=== PATIENT | male | born 1940 | race Caucasian/White ===

== ENCOUNTER 2020-08-19 16:33 | Inpatient (IN) | payer MEDICARE, SELFPAY ==
[2020-08-19] VITALS (21 sets, daily range): BP systolic 112–172; BP diastolic 57–110; PULSE 59–90; RESP 15–30; TEMP 36.6–36.7; O2SAT 95–99; BMI 32.5
--- NOTE | ~2020-08-19 | XR_ITS ---
EXAMINATION: XR chest 2V DATE: 08/19/2020 17:50 INDICATION: Sternal chest pain TECHNIQUE: PA and lateral views of the chest are obtained. COMPARISON: 12/10/2014 FINDINGS: The lungs are free of acute opacities. There is no pleural effusion or pneumothorax. The ca rdiomediastinal silhouette is normal. There is severe thoracic spondylosis. IMPRESSION: 1. No acute cardiopulmonary abnormality. Reviewed, dictated and finalized at location A.
--- NOTE | ~2020-08-19 | CT_ITS ---
EXAMINATION: CT brain wo con INDICATION: Head injury COMPARISON: None TECHNIQUE: Standard unenhanced head CT. The dose-length product (DLP) was 681.00 mGy-cm. The mA was a djusted according to patient size. Iterative reconstruction technique was employed. FINDINGS: There is no acute intraparenchymal hemorrhage. No evidence of mass lesion. No evidence of a cute infarction. There is an old lacunar infarct of the left internal capsule. There is mild perivent ricular and subcortical hypodensity probably related to small vessel ischemic disease. There is mild prominence of the sulci and ventricles related to cerebral atrophy. Intracranial calcified cerebral a therosclerosis is noted. There are no extra-axial collections. There is no mass effect or midline silver ft. The orbits and soft tissues are unremarkable. The visualized sinuses and mastoid air cells are w ell aerated. IMPRESSION: 1. No acute intracranial abnormality. 2. Age related findings. Reviewed, dictated and finalized at location A.
--- NOTE | ~2020-08-19 | CT_ITS ---
EXAMINATION: CT cervical spine wo con DATE: 08/20/2020 19:19 INDICATION: Head injury TECHNIQUE: Computed tomography (CT) of the cervical spine was performed without intravenous contrast. The dose-length product (DLP) was 530.74 mGy-cm. Automated exposure control and iterative reconstruc tion technique were employed. COMPARISON: None FINDINGS: There are 2 mm of retrolisthesis of C3 on C4 and 1 mm retrolisthesis of C4 on C5. The verte bral body heights are maintained. The odontoid is intact. There is severe loss of intervertebral disc space height at C3-4, C4-5, and C6-7. Small degenerative osteophytes project from the anterior endpl ates of multiple vertebral bodies. Prevertebral soft tissues are normal. There is moderate multilevel facet and uncovertebral joint osteoarthritis. There are partially calcified left thyroid nodules. IMPRESSION: 1. Severe cervical spondylosis without acute findings. 2. Partially calcified left thyroid nodules. Most recent thyroid ultrasound is from 2007. Consider no nemergent thyroid ultrasound. Reviewed, dictated and finalized at location A. IMPRESSION: 1. Severe cervical spondylosis without acute findings. 2. Partially calcified left thyroid nodules. Most recent thyroid ultrasound is from 2007. Consider nonemergent thyroid ultrasound.
--- NOTE | 2020-08-19 16:37 | ECG_ITS ---
Measurements Intervals [place] Rate: 83 P: 58 AL: 220 QRS: 65 QRSD: 97 T: 31 QT: 365 QTc: 431 Interpretive Statements SINUS RHYTHM WITH FIRST DEGREE AV BLOCK MINIMAL Q WAVES- INFERIOR LEADS BORDERLINE T WAVE ABNORMALITY- INFERIOR LEADS BASELINE ARTIFACT- I, II, III, AVF ABNORMAL ECG Electronically Signed On 08-19-2020 20:03:50 CDT by Timoteo Aviles D.O.
[2020-08-19] MEDS: ASPIRIN 81 MG CHEWABLE TABLET 324 MG PO (17:08)
[2020-08-19 17:48] LABS: Basophils Absolute Auto 0.1 K/mm3 (0.0-0.1); Basophils Percent Auto 0.8 % (0.2-1.2); Eosinophils Absolute Auto 0.2 K/mm3 (0-0.3); Eosinophils Percent Auto 2.5 % (0-4.4); Hematocrit 41.6 % (42.0-52.0); Immature Granulocyte Absolute 0.03 K/mm3 (0.00-0.031); Immature Granulocyte Percent A 0.4 % (0-0.5); Lymphocytes Absolute Auto 2.52 K/mm3 (0.9-3.2); Lymphocytes Percent Auto 30.4 % (18.3-44.2); Mean Corpuscular HGB Conc 33.7 g/dl (32-36); Mean Corpuscular Hemoglobin 31.7 pg (26-34); Mean Corpuscular Volume 94.3 fl (80-100); Mean Platelet Volume 11.9 fl (7.4-10.4); Monocytes Absolute Auto 0.8 K/mm3 (0.1-0.6); Neutrophils Absolute Auto 4.7 K/mm3 (1.3-6.7); Neutrophils Percent Auto 56.9 % (45.5-73.1); Platelet Count Result 204 k/mm3 (150-375); Red Blood Count 4.41 M/mm3 (4.6-6.20); Red Cell Distribution Width 12.9 % (11.5-14.5); White Blood Count 8.3 K/mm3 (4.5-10.0)
--- NOTE | 2020-08-19 17:49 | ECG_ITS ---
Measurements Intervals [place] Rate: 80 P: -12 DC: 187 QRS: 57 QRSD: 101 T: 28 QT: 387 QTc: 448 Interpretive Statements SINUS RHYTHM DELAYED PRECORDIAL R/S TRANSITION MINIMAL Q WAVES- INFERIOR LEADS BORDERLINE T WAVE ABNORMALITY- INFERIOR LEADS BASELINE WANDER- AVR, AVL, AVF BORDERLINE ECG Electronically Signed On 08-19-2020 20:07:56 CDT by Timoteo Aviles D.O.
[2020-08-19 17:59] LABS: Anion Gap 6 mmol/L (8-16); Blood Urea Nitrogen 18 mg/dL (9-20); Calcium 9.4 mg/dL (8.4-10.2); Carbon Dioxide 28 mmol/L (22-30); Chloride 104 mmol/L (98-107); Estimated CRCL calculation 68 ml/min; Estimated Glomerular Filt Rate > 60; Glucose 187 mg/dL (75-110); Sodium 138 mmol/L (137-145)
[2020-08-19] MEDS: NITROGLYCERIN SL 0.4 MG TABLET SUBLINGUAL (18:06)
[2020-08-19 18:09] LABS: Partial Thromboplastin Time 26.5 SECONDS (22.3-36.8); Prothrombin Time 13.8 Seconds (11.1-14.7)
[2020-08-19 18:11] LABS: Troponin I < 0.012 ng/mL (0.000-0.034)
[2020-08-19] MEDS: NITROGLYCERIN OINTMENT 1 INCH DOSE TRANSDERM (19:51)
--- NOTE | 2020-08-19 20:02 | PC.NURSE ---
Pt remains pain free. No new s/s. Pt is hoping to go home.
[2020-08-19] MEDS: ENOXAPARIN 120 MG/0.8 ML SYRINGE SUB-Q (20:20)
[2020-08-19 20:39] LABS: Troponin I 0.928 ng/mL (0.000-0.034)
--- NOTE | 2020-08-19 21:04 | ED.CHESTPAIN ---
HPI - Chest Pain General Chief Complaint: Chest Pain Stated Complaint: chest pain Time Seen by Provider: 08/19/20 17:21 Source: patient Mode of arrival: ambulatory Limitations: no limitations History of Present Illness HPI narrative: 80-year-old male History of insulin-dependent diabetes Also has 2 cardiac stents placed here a number of years ago however he is on no stent protective type of medications, only insulin Here today for chest pain Patient says he was outside gardening with his he was fine while he was doing that he came in because he was finished not even because he was tired and after laying down on the sofa started having a severe anterior chest pressure/tightness which has been present for about 90 minutes at the time I saw him in the ER Subsequently it was completely relieved by nitroglycerin given here He denied other symptoms such as shortness of breath nausea diaphoresis Related Data Allergies Allergy/AdvReac Type Severity Reaction Status Date / Time No Known Allergies Allergy Unverified 08/19/20 17:05 Review of Systems Review of Systems: All systems reviewed & are unremarkable except as noted in HPI and below Constitutional: Constitutional: Reports no additional constitutional complaints, Denies chills, Denies fever(s) and Denies headache(s) Eyes: Eyes: Reports no additional eye complaints and Denies change in vision ENT: Denies headache(s) and Denies sore throat Cardiovascular: Cardiovascular: Reports chest pain, Denies radiating jaw, neck or arm pain and Denies dyspnea Respiratory: Respiratory: Denies cough and Denies dyspnea Gastrointestinal: Gastrointestinal: Denies abdominal pain, Denies diarrhea and Denies vomiting Genitourinary: Genitourinary: Denies dysuria and Denies urinary frequency Musculoskeletal: Musculoskeletal: Denies deformity, Denies arthralgias, Denies joint swelling and Denies numbness Integumentary/Breasts: Skin/Breast: Denies rash and Denies wounds Neurologic: Denies headache(s), Denies focal weakness and Denies numbness Psychiatric: Psychiatric: Reports no additional psychiatric complaints Endocrine: Endocrine: Reports no additional endocrine complaints Hematologic/Lymphatic: Hematologic/Lymphatic: Reports no additional hematologic/lymphatic complaints Allergic/Immunologic: Allergic/Immunologic: Reports no additional allergic/immunologic complaints [facility] Family History Family History (Updated 05/27/18 @ 08:21 by DOCTOR UNKNOWN) Mother Family history of diabetes mellitus in first degree relative Diabetes mellitus Father Patient's father is Family history of malignant neoplasm Social History Social History Smoking status: Never smoker Alcohol intake: never Exam Const: General: cooperative, alert and ill appearing; No diaphoretic Orientation/consciousness: patient oriented x3 (alert) Other: Appears uneasy and mildly distressed HENMT: Head: normal to inspection, normocephalic and atraumatic Ears: external ears normal General nose exam: no epistaxis Eyes: Conjunctivae: conjunctivae normal EOM: EOMs intact bilaterally Neck: Neck: normal visual inspection, supple and no JVD Resp: Effort & Inspection: normal respiratory effort and not labored Auscultation: clear to auscultation bilaterally and other (BS =) Cardio: Rate: regular rate Rhythm: regular rhythm Heart sounds: no murmurs GI: Inspection: non-distended GI Palp: Yes Soft to palpation, No Tenderness to palpation present (GI) and No Guarding due to palpation present (GI) Skin: General skin exam: normal color and no rashes or lesions noted Neuro: General: patient oriented x3 (alert) and moves all extremities Speech: normal speech Extrem: General: normal to inspection and no pedal edema Psych: Affect: normal affect Course Course Emergency Course: Initial EKG had a little ST elevation only in lead III so it was repeated after I saw him and was u
[2020-08-19] MEDS: METOPROLOL TARTRATE INJ 5 MG/5 ML VIAL IV PUSH (21:10)
--- NOTE | 2020-08-19 21:13 | PM.IMHP ---
H&P: HPI History of Present Illness Date/Time: 08/19/20 21:13 Chief Complaint: Chest pain Narrative: 80-year-old male with past medical history of insulin-dependent diabetes mellitus, hypertension and coronary artery disease who presented to the ER via private vehicle due to chest pain. He had been outside mowing the lawn. He went inside and laid down approximately an hour later he developed substernal chest pain that was nonradiating. Pain was having an aching in nature. He waited approximately 30 minutes and when the pain did not resolve he decided to come to the ER after his encouraged him to do so. His pain persisted until he received nitroglycerin in the ER at which time he had complete resolution of his symptoms. He did have some mild nausea accompanying the chest pain but this had resolved before he arrived to the ER. He denies any shortness of breath, diaphoresis, cough, congestion, paroxysmal nocturnal dyspnea or lower extremity swelling. He reports that the pain was moderate in intensity. His chest pain had persisted for approximately 90 minutes by time he received nitro and aspirin. The patient had had a staged cardiac catheterization with 2 stents placed after LA in 2014. He remained on his antihypertensives and Brilinta and statin therapy for approximately 1 year following procedure. He reported that he followed up with Dr. Jackson and was told that he was ?good.? The patient interpreted this to mean that he did not need to take the medications anymore and that he did not need to follow-up with cardiology. He reports that his glucoses are well controlled in usually range between 130 and 180. The patient is a fair historian at best. Seems to have some memory deficits. Review of Systems Review of Systems: Narrative: 12 systems were reviewed with pertinent positives and negatives per HPI. Except as documented in the HPI, all other systems were reviewed and are negative. 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 Jcakson History of tonsillectomy Family History Family History (Updated 08/20/20 @ 03:51 by Roberta Amado DO) Mother Diabetes mellitus Father , during World War 2 when the patient was a infant War inj:expl bomb-cease Social History Social History (Updated 08/20/20 @ 03:53 by Roberta Amado DO) Social History: He lives in [place] with his of 60 years. Their daughter and son are healthy. He rarely drinks alcohol and only in small amounts. He is a lifelong nonsmoker. Primary care physician: Dr. Rodney Vila Code status: Full code Surrogate decision maker: Smoking status: Never smoker Alcohol intake: never Substance use: never Gender identity (if verbalized by the patient): Male Spiritual care concerns: No Meds Home Medications and Allergies Home Medications Medication Instructions Recorded Confirmed Type insulin degludec [Tresiba 40 unit SUBCUT HS 08/19/20 08/19/20 History FlexTouch U-200] insulin lispro See Protocol SUBCUT TID 08/19/20 08/19/20 History tamsulosin 0.4 mg PO HS 08/19/20 08/19/20 Hist
[2020-08-19] MEDS: SIMVASTATIN 20 MG TABLET 40 MG PO (21:15)
[2020-08-19 23:37] LABS: Glucose Point of Care 225 mg/dl (65-105)
--- NOTE | 2020-08-19 23:44 | ADMGEN ---
This patient, Nikita Cordova, was admitted to Intensive Care Unit-2 at 2300. Patient/family oriented to hospital policies and general routines including ID bracelet, bed and alarms, visiting hours, pain management, procedures, bathroom and other care routines, personal items, smoking policy, room service/diet, and visiting hours. Information on how to activate the Rapid Response Team has been discussed. Patient/Family are encouraged to report perceived risks to care and to ask questions if they do not understand what they are told or what they should do.
[2020-08-20] VITALS (14 sets, daily range): BP systolic 100–179; BP diastolic 58–97; PULSE 59–96; RESP 15–24; TEMP 36.1–36.8; O2SAT 96–100
[2020-08-20] MEDS: NITROGLYCERIN OINTMENT 1 INCH DOSE TRANSDERM ×2 (01:50→06:23)
[2020-08-20 05:01] LABS: Cholesterol 161 mg/dL (0-200); HDL Direct 34 mg/dL
[2020-08-20 05:04] LABS: LDL Cholesterol Direct 99 mg/dL
[2020-08-20 05:38] LABS: Hemoglobin A1C 8.3 % (<5.7)
--- NOTE | 2020-08-20 06:00 | ECHO_ITS ---
Patient Info Name: Nikita Cordova Age: 80 years : 1940 Gender: Male Ht: 74 in Wt: 253 lbs BSA: 2.48 m2 HR: 78 bpm BP: 154 / 86 mmHg Heart Rhythm: Sinus Rhythm Technical Quality: Poor Exam Date: 08/20/2020 8:47 AM Exam Location: [facility] Pulmonary Exam Room: ICU 2 Patient Status: Inpatient Admit Date: 08/19/2020 Staff Ordering Physician: Efe Agudelo MD Sales And Marketing Director: Yue Anders RDCS Attending Provider: Roberta Amado DO Referring Physician: Magnus SLATER; Exam Type: CA echo dop color flow w con Study Info Indications - NSTEMI Complete two-dimensional, color flow and Doppler transthoracic echocardiogram is performed with contrast to opacify the left ventricle and to improve the deliniation of the left ventricle endocardial borders. Contrast/Agitated Saline Contrast/Ag. Saline: Definity Amount: 2.00 ml Administered By: Giovani Mckinney RN Reason for Poor Study: patient body habitus Summary 1. Left ventricular systolic function is normal, estimated at 60-65%. 2. Posterior segment appears to be hypodynamic. 3. Thickened anterior mitral valve leaflet no significant regurgitation however. Left Ventricle Left ventricular chamber dimension is normal. Left ventricular systolic function is normal, estimated at 60-65%. The left ventricular diastolic function is grade I diastolic dysfunction. Posterior segment appears to be hypodynamic. Right Ventricle Right ventricular chamber dimension is normal. Left Atria Left atrial chamber dimension is normal. Right Atria Right atrial chamber dimension is normal. Aortic Valve The aortic valve is trileaflet. There is mild aortic valve sclerosis. Pulmonic Valve The pulmonic valve is not well visualized. Mitral Valve The mitral valve has thickened leaflets. Tricuspid Valve The tricuspid valve leaflets are normal. Pericardium/Pleural The pericardium appears normal. Aorta The aortic root size at the sinus of Valsalva is normal. Left Ventricular Outflow Tract Name Value Normal LVOT 2D LVOT Diameter 2.14 cm LVOT Doppler LVOT Peak Gradient 3 mmHg LVOT Mean Gradient 2 mmHg LVOT VTI 20.88 cm LVOT VTI/AV VTI Ratio 0.87 LVOT Stroke Volume 74.91 ml LVOT CO 14.06 l/min LVOT CI 5.67 L/min/m2 Pulmonic Valve Name Value Normal PV Doppler PV Peak Gradient 2 mmHg Mitral Valve Name Value Normal MV Doppler
[2020-08-20 06:08] LABS: Triglycerides 174 mg/dL (<150)
--- NOTE | 2020-08-20 08:19 | PM.CNCAR ---
Assessment and Plan Additional Plan This is a 80-year-old man with: Coronary artery disease with previous history of a MA and stenting to his LAD and circumflex about 5 years ago. The patient has not been seen in follow-up in a number of years. He presents no medical therapy at all of having had a non ST elevation MA yesterday following doing some yd work. He is clinically stable his vital signs are fine and his electrocardiogram looks normal. In this setting we will continue him on aspirin, anticoagulation, beta-claudia, nitrates and statins and plan for follow-up coronary angiography on Saturday. Rodney Jackson MD [facility] History of Present Illness History of Present Illness Consult date/time: 08/20/20 08:19 Consult reason: chest pain Reason For Visit: nstemi Narrative: This is a 80-year-old man with a history of coronary artery disease, previous myocardial infarction with PCI who presented to the hospital yesterday with chest pain has evidence of non ST elevation MA and in this setting I am seeing him in consultation. The patient apparently is known to have coronary artery disease presented late with a acute MA of the anterior wall about 6 years ago. He underwent emergency PCI of the LAD and did well. He apparently also had high-grade stenosis in his circumflex was treated about a month later in a staged fashion. He was followed in the office for a short period of time maybe about a year or so did well and then failed follow-up after that. Surprisingly he also she discontinued all of his medications indicating he had the concept that medication 1st heart disease was no longer necessary. He is seeing a PCP in [place] for treatment of his diabetes and is taking insulin but interestingly that position is also prescribing no medication for coronary artery disease maintenance. In any event despite all this he was doing well until yesterday when he was doing some yd work and triggered some retrosternal chest pain. He describes it as a dull heavy central substernal pain that persisted for a period of time after relaxing in his home so he came to the emergency room for evaluation. Apparently he was given 1 nitroglycerin tablet which rapidly alleviated this symptom. He has not had any more of it since then. His troponin level which was normal upon arrival has risen to just over 11. There are 2 EKGs in the chart that are normal. In this setting I am seeing him in consultation. Review of Systems Constitutional: Constitutional: Reports no additional constitutional complaints Eyes: Eyes: Reports no additional eye complaints ENT: Reports system reviewed and no additional complaints, except as documented Cardiovascular: Cardiovascular: Reports no additional cardiovascular complaints Respiratory: Respiratory: Reports no additional respiratory complaints Gastrointestinal: Gastrointestinal: Reports no additional gastrointestinal complaints Genitourinary: Genitourinary: Reports no additional male genitourinary complaints Musculoskeletal: Musculoskeletal: Reports no additional musculoskeletal complaints Integumentary/Breasts: Skin/Breast: Reports system reviewed and no additional complaints, except as docu Neurologic: Reports system reviewed and no additional complaints, except as documented Endocrine: Endocrine: Reports no additional endocrine complaints Hematologic/Lymphatic: Hematologic/Lymphatic: Reports no additional hematologic/lymphatic complaints Allergic/Immunologic: Allergic/Immunologic: Reports no additional allergic/immunologic complaints [facility] Past Medical History Medical History (Updated 08/20/20 @ 03:56 by Roberta Amado DO) BPH (benign prostatic hyperplasia) C4 cervical fracture Coronary artery disease Diabetic peripheral neuropathy Diabetic retinopathy Dyslipidemia Essential hypertension Hypertriglyceridemia Insulin dependent diabetes mellitus Kidney stones Primary cancer of skin of shoulder Skin
[2020-08-20] MEDS: lisinopriL 10 MG TABLET PO (08:36)
[2020-08-20] MEDS: carvediloL 6.25 MG TABLET PO ×2 (08:37→20:21)
[2020-08-20] MEDS: FAMOTIDINE 20 MG/2 ML VIAL IV PUSH ×2 (08:37→20:21)
[2020-08-20] MEDS: ASPIRIN 81 MG CHEWABLE TABLET PO (08:37)
[2020-08-20] MEDS: ENOXAPARIN 120 MG/0.8 ML SYRINGE SUB-Q ×2 (08:37→20:21)
[2020-08-20 09:42] LABS: Glucose Point of Care 249 mg/dl (65-105)
[2020-08-20] MEDS: INSULIN ASPART (*BKC) 100 UNITS/ML SUB-Q ×3 (09:49→16:17)
[2020-08-20] MEDS: ROSUVASTATIN 10 MG TABLET PO (10:10)
[2020-08-20 12:02] LABS: Glucose Point of Care 278 mg/dl (65-105)
--- NOTE | 2020-08-20 14:51 | PM.IMPN ---
Progress Note: A&P Assessment and Plan (1) Non-ST elevation NH (NSTEMI): Code(s): I21.4 - Non-ST elevation (NSTEMI) myocardial infarction Status: Acute Assessment and Plan: The patient's chest pain has resolved with nitropaste on admission Pt seen by cardiology Patient has been admitted to IMU. Pt started on cardiac medications for heart cath on saturday. Trop was 11 (2) Type 2 diabetes mellitus with hyperglycemia, with long-term current use of insulin: Code(s): E11.65 - Type 2 diabetes mellitus with hyperglycemia; Z79.4 - half-way (current) use of insulin Status: Acute Assessment and Plan: HBaic is 8. low-dose sliding scale insulin with Accu-Cheks ACHS and hypoglycemia protocol. (3) Essential hypertension: Code(s): I10 - Essential (primary) hypertension Status: Acute Assessment and Plan: Coreg 6.25 mg p.o. b.i.d. and lisinopril 10 mg p.o. daily BP is 100/58 Subjective Date/time seen: 08/20/20 14:51 Interval history: 80-year-old male with past medical history of insulin-dependent diabetes mellitus, hypertension and coronary artery disease who presented to the ER via private vehicle due to chest pain. Pt found to have a nstemi pt to start medical treatment and has his cath on Saturday, seen by cardiology already. Pt is chest pain free, sitting comfortable in the room. Review of Systems Review of Systems: All systems reviewed & are unremarkable except as noted in HPI and below Exam Narrative: Exam Narrative: Pleasant man overweight sitting in chair. HEENT: Left cataract noted Respiratory: Clear lungs BL Cardiovascular: Regular rate, regular rhythm, no murmur, no JVD Gastrointestinal: Obese, soft, nontender, positive bowel sounds Musculoskeletal: No clubbing, cyanosis or edema Neurological: Alert and oriented x3, slow speech Psychiatric: Appropriate mood and affect, pleasant and cooperative Hematologic/lymphatic: No petechiae, lymphadenopathy or bruising Objective Data Vital Signs Vital Signs: Vital Signs - 24 hr 08/19/20 17:01 08/19/20 18:02 08/19/20 19:02 Temperature 36.6 C Pulse Rate 85 90 75 Respiratory Rate 17 21 H 22 H Blood Pressure 172/84 H 163/76 H 148/85 H Pulse Oximetry 99 99 98 08/19/20 20:21 08/19/20 20:31 08/19/20 20:45 Temperature Pulse Rate 68 89 80 Respiratory Rate 18 30 H 22 H Blood Pressure Pulse Oximetry 96 08/19/20 21:00 08/19/20 21:09 08/19/20 21:10 Temperature Pulse Rate 82 83 83 Respiratory Rate 23 H 17 Blood Pressure 141/110 H Pulse Oximetry 96 08/19/20 21:15 08/19/20 21:30 08/19/20 21:31 Temperature Pulse Rate 72 64 65 Respiratory Rate 19 21 H 18 Blood Pressure 112/62 Pulse Oximetry 08/19/20 21:32 08/19/20 21:45 08/19/20 22:00 Temperature Pulse Rate 64 62 61 Respiratory Rate 19 17 20 Blood Pressure Pulse Oximetry 08/19/20 22:01 08/19/20 22:15 08/19/20 22:30 Temperature Pulse Rate 62 59 L 66 Respiratory Rate 18 22 H 20 Blood Pressure 115/57 L Pulse Oximetry 08/19/20 22:31 08/19/20 23:55 08/19/20 23:59 Temperature 36.7 C Pulse Rate 68 74 Respiratory Rate 16 15 Blood Pressure 152/90 H 164/83 H Pulse Oximetry 98 95 08/20/20 00:00 08/20/20 04:00 08/20/20 08:00 Temperature 36.7 C 36.8 C Pulse Rate 75 76 96 Respiratory Rate 15 20 18 Blood Pressure 158/81 H 154/86 H 134/97 H Pulse Oximetry 100 96 98 08/20/20 08:37 08/20/20 10:00 08/20/20 12:00 Temperature Pulse Rate 80 74 68 Respiratory Rate 18 Blood Pressure 100/58 L Pulse Oximetry 100 08/20/20 13:38 Temperature Pulse Rate 71 Respiratory Rate Blood Pressure Pulse Oximetry Intake/Output Intake/Output: Intake & Output 08/17/20 08/18/20 08/19/20 08/20/20 23:59 23:59 23:59 23:59 Intake Total 480 Output Total 500 Balance -20 Meds/Results Medications: Active Medications Generic Name Dose Route Start La
[2020-08-20 16:21] LABS: Glucose Point of Care 203 mg/dl (65-105)
--- NOTE | 2020-08-20 18:51 | PC.NURSE ---
Pt confused and violent at 1840. Took heart monitor off and ran out of room attempting to go into other icu rooms. Pt fell and hit head. Code ken called. Multiple calls placed to dr. Herrera notified and aware of situation. Reached Patrica and informed. She is coming to evaluate at bedside.
--- NOTE | 2020-08-20 19:30 | PM.EVENT ---
Event Note Event Note Event Note: A code purple was called earlier the patient had become aggressive. The patient had gotten up out of bed and fell and hit his head on the floor. Patient had a small laceration approximately 1-1/2 inches long. I sent him for CT of the brain without contrast as well as CT of the cervical spine. The patient is awake and talking to his now. I did place 2 small diann in the right occipital parietal area where the laceration was observed. The patient is awake and talking to his and is aware of who she is. No focal weakness or slurred speech is notice. Neurological status is intact.
--- NOTE | 2020-08-20 19:36 | WPDPROCEDUR ---
Procedures Laceration Laceration 1: Site: scalp Description: linear Depth: simple, single layer Number of sutures: 2 Patient tolerated well. The bleeding has essentially stopped from the scalp laceration.
[2020-08-20] MEDS: TAMSULOSIN HCL 0.4 MG CAPSULE PO (20:21)
[2020-08-20] MEDS: INSULIN GLARGINE (*BKC) 100 UNITS/ML 40 UNITS SUB-Q (20:22)
[2020-08-20 20:34] LABS: Glucose Point of Care 330 mg/dl (65-105)
[2020-08-21] VITALS (16 sets, daily range): BP systolic 94–153; BP diastolic 53–79; PULSE 59–86; RESP 18–24; TEMP 36.4–36.6; O2SAT 97–100
[2020-08-21] MEDS: NITROGLYCERIN OINTMENT 1 INCH DOSE TRANSDERM (05:11)
--- NOTE | 2020-08-21 06:59 | PM.PNCARD ---
Progress Note: A&P Additional Plan 80-year-old man with: Coronary artery disease prior NM/PCI to both the LAD and circumflex. Had not been seen in follow-up in a number of years because of noncompliance. In the interim he has developed dementia which unfortunately complicates his management. Plans are in place to bring him to the [facility] director tomorrow morning for follow-up angiography. My principal concern is controlling the patient's dementia/agitation during his invasive procedure. Rodney Jackson MD [facility] Subjective Date/time seen: Date of service: 08/21/20 06:59 Interval history: 80-year-old man with: Coronary artery disease previous PCI to the LAD and the circumflex in the remote past. He was noncompliant with follow-up and medication and came into the hospital following exertional chest pain and E enzyme evidence of non ST elevation NM. Patient is asymptomatic this morning offers no cardiac complaints. Apparently he became disoriented last evening started charging out of his room slipped in the hallway and fell. He sustained a scalp laceration which was treated by the overnight primary team. The patient's is here this morning indicates he has become somewhat demented in the last year to year and a half he did this type of agitation and memory difficulty is related to that. He has seen a neurologist to evaluate this and the told me that he has developed dementia. Exam Const: General: comfortable and no acute distress HENMT: Mouth: Yes moist mucous membranes Eyes: Sclera: sclerae normal Pupils: Equal, round and reactive pupils present Neck: Neck: supple and no JVD Thyroid: thyroid normal Resp: Effort & Inspection: normal respiratory effort Auscultation: clear to auscultation bilaterally Cardio: Rate: regular rate Rhythm: regular rhythm Other: No murmur no gallop no rub GI: GI Palp: Yes Soft to palpation Auscultation: normal bowel sounds Neuro: Cognition (Neuro): normal cognition Extrem: General: normal to inspection Objective Data Vital Signs Vital Signs: Vital Signs - 24 hr 08/20/20 08:00 08/20/20 08:37 08/20/20 10:00 Temperature 36.8 C Pulse Rate 96 80 74 Respiratory Rate 18 Blood Pressure 134/97 H Pulse Oximetry 98 08/20/20 12:00 08/20/20 13:38 08/20/20 16:00 Temperature Pulse Rate 68 71 59 L Respiratory Rate 18 20 Blood Pressure 100/58 L 111/71 Pulse Oximetry 100 99 08/20/20 17:18 08/20/20 18:53 08/20/20 20:00 Temperature 36.4 C L Pulse Rate 61 95 82 Respiratory Rate 24 H 20 Blood Pressure 179/95 H 161/89 H Pulse Oximetry 100 99 08/20/20 20:21 08/20/20 23:49 08/20/20 23:50 Temperature 36.1 C L Pulse Rate 82 71 76 Respiratory Rate 20 Blood Pressure 161/89 H Pulse Oximetry 98 08/21/20 03:57 08/21/20 04:00 08/21/20 05:24 Temperature 36.6 C Pulse Rate 73 71 71 Respiratory Rate 18 Blood Pressure 153/73 H Pulse Oximetry 100 Intake/Output Intake/Output: Intake & Output 08/18/20 08/19/20 08/20/20 08/21/20 23:59 23:59 23:59 23:59 Intake Total 1200 240 Output Total 1300 1250 Balance -100 -1010 Meds/Results Medications: Active Medications Generic Name Dose Route Start Last Admin Trade Name Freq PRN Reason Stop Dose Admin Acetaminophen 650 mg 08/19/20 21:23 Acetaminophen 325 Mg Tablet PO Q4H PRN Mild Pain (1-3) or Fever Artificial Tears 1 drop 08/20/20 15:29 Artificial Tears Op Soln 15 Ml Bottle EACH EYE QID PRN Dry Eye(s) Aspirin 81 mg 08/20/20 08:00 08/20/20 08:37 Aspirin 81 Mg Chewable Tablet PO 81 mg DAILY@0800 WARNER Administration Carvedilol 6.25 mg 08/20/20 09:00 08/20/20 20:21 Carvedilol 6.25 Mg Tablet PO 6.25 mg Q12HR WARNER Administration Dextrose 12.5 gm 08/19/20 21:56 Dextrose 50% 25 Gm/50 Ml Syringe IV PUSH PRN PRN Hypoglycemia Protocol Enoxaparin Sodium 120 mg 08/20/20 08:00 08/20/20 20:21 Enoxaparin 1
[2020-08-21 08:01] LABS: Glucose Point of Care 215 mg/dl (65-105)
[2020-08-21] MEDS: INSULIN ASPART (*BKC) 100 UNITS/ML SUB-Q ×3 (08:04→17:49)
[2020-08-21] MEDS: ENOXAPARIN 120 MG/0.8 ML SYRINGE SUB-Q ×2 (08:04→20:52)
[2020-08-21] MEDS: carvediloL 6.25 MG TABLET PO ×2 (08:05→20:52)
[2020-08-21] MEDS: FAMOTIDINE 20 MG/2 ML VIAL IV PUSH ×2 (08:05→20:53)
[2020-08-21] MEDS: ROSUVASTATIN 10 MG TABLET PO (08:05)
[2020-08-21] MEDS: ASPIRIN 81 MG CHEWABLE TABLET PO (08:05)
[2020-08-21] MEDS: lisinopriL 10 MG TABLET PO (11:22)
[2020-08-21 11:36] LABS: Glucose Point of Care 247 mg/dl (65-105)
--- NOTE | 2020-08-21 13:48 | PM.IMPN ---
Progress Note: A&P Assessment and Plan (1) Non-ST elevation [place] (NSTEMI): Code(s): I21.4 - Non-ST elevation (NSTEMI) myocardial infarction Status: Acute Assessment and Plan: The patient's chest pain has resolved with nitropaste on admission Pt seen by cardiology Patient has been admitted to IMU. Pt started on cardiac medications for heart cath on saturday. Trop was 11 (2) Type 2 diabetes mellitus with hyperglycemia, with long-term current use of insulin: Code(s): E11.65 - Type 2 diabetes mellitus with hyperglycemia; Z79.4 - group home (current) use of insulin Status: Acute Assessment and Plan: HBaic is 8. low-dose sliding scale insulin with Accu-Cheks ACHS and hypoglycemia protocol. (3) Essential hypertension: Code(s): I10 - Essential (primary) hypertension Status: Acute Assessment and Plan: Coreg 6.25 mg p.o. b.i.d. and lisinopril 10 mg p.o. daily BP is 100/58 (4) Dementia: Code(s): F03.90 - Unspecified dementia without behavioral disturbance Status: Acute Assessment and Plan: Episode of own confusion and agitation last night with fall and sustained scalp laceration, ct head was negative Additional Plan Patient has been admitted as observation status. Subjective Date/time seen: 08/21/20 13:48 Interval history: 80-year-old male with past medical history of insulin-dependent diabetes mellitus, hypertension and coronary artery disease who presented to the ER via private vehicle due to chest pain. Pt found to have a nstemi pt to start medical treatment and has his cath on Saturday. Pt had a episode of confusion yesterday evening, and panic fell and hit his head needed diann in his head Review of Systems Review of Systems: All systems reviewed & are unremarkable except as noted in HPI and below Exam Narrative: Exam Narrative: Pt appears calm sleeping in bed. Head with superficial laceration on the back of the scalp with diann in situ Respiratory: Clear lungs BL Cardiovascular: Regular rate, regular rhythm, no murmur, no JVD Gastrointestinal: Obese, soft, nontender, positive bowel sounds Musculoskeletal: No clubbing, cyanosis or edema Neurological: Alert and oriented x3, slow speech Psychiatric: Appropriate mood and affect, pleasant and cooperative Hematologic/lymphatic: No petechiae, lymphadenopathy or bruising Objective Data Vital Signs Vital Signs: Vital Signs - 24 hr 08/20/20 16:00 08/20/20 17:18 08/20/20 18:53 Temperature Pulse Rate 59 L 61 95 Respiratory Rate 20 24 H Blood Pressure 111/71 179/95 H Pulse Oximetry 99 100 08/20/20 20:00 08/20/20 20:21 08/20/20 23:49 Temperature 36.4 C L 36.1 C L Pulse Rate 82 82 71 Respiratory Rate 20 20 Blood Pressure 161/89 H 161/89 H Pulse Oximetry 99 98 08/20/20 23:50 08/21/20 03:57 08/21/20 04:00 Temperature 36.6 C Pulse Rate 76 73 71 Respiratory Rate 18 Blood Pressure 153/73 H Pulse Oximetry 100 08/21/20 05:24 08/21/20 08:00 08/21/20 08:05 Temperature 36.6 C Pulse Rate 71 86 86 Respiratory Rate 18 Blood Pressure 94/53 L Pulse Oximetry 100 08/21/20 08:33 08/21/20 10:00 08/21/20 11:23 Temperature Pulse Rate 85 69 77 Respiratory Rate 18 Blood Pressure 150/79 H Pulse Oximetry 97 98 08/21/20 12:00 Temperature Pulse Rate 79 Respiratory Rate Blood Pressure Pulse Oximetry Intake/Output Intake/Output: Intake & Output 08/18/20 08/19/20 08/20/20 08/21/20 23:59 23:59 23:59 23:59 Intake Total 1200 600 Output Total 1300 1250 Balance -100 -650 Meds/Results Medications: Active Medications Generic Name Dose Route Start Last Admin Trade Name Freq PRN Reason Stop Dose Admin Acetaminophen 650 mg 08/19/20 21:23 Acetaminophen 325 Mg Tablet PO Q4H PRN Mild Pain (1-3) or Fever Artificial Tears 1 drop 08/20/20 15:29 08/21/20 08:04 Artificial Tears Op Soln 15
[2020-08-21] MEDS: QUEtiapine FUMARATE 12.5 MG TABLET PO (18:29)
[2020-08-21 18:42] LABS: Glucose Point of Care 304 mg/dl (65-105)
[2020-08-21] MEDS: TAMSULOSIN HCL 0.4 MG CAPSULE PO (20:53)
[2020-08-21 21:00] LABS: Glucose Point of Care 294 mg/dl (65-105)
[2020-08-21] MEDS: INSULIN GLARGINE (*BKC) 100 UNITS/ML 40 UNITS SUB-Q (21:01)
[2020-08-22] VITALS (21 sets, daily range): BP systolic 117–158; BP diastolic 65–89; PULSE 60–86; RESP 12–23; TEMP 36.6–37.2; O2SAT 95–100
[2020-08-22] MEDS: ASPIRIN 81 MG CHEWABLE TABLET PO (08:03)
[2020-08-22] MEDS: ROSUVASTATIN 10 MG TABLET PO (08:03)
[2020-08-22] MEDS: FAMOTIDINE 20 MG/2 ML VIAL IV PUSH (08:03)
[2020-08-22] MEDS: carvediloL 6.25 MG TABLET PO (08:03)
[2020-08-22] MEDS: lisinopriL 10 MG TABLET PO (08:03)
[2020-08-22 08:11] LABS: Glucose Point of Care 122 mg/dl (65-105)
--- NOTE | 2020-08-22 08:36 | WPDMODSED ---
Moderate Sedation Note-Pt Data Patient Data Diagnosis: Non ST-elevation [place] Present Complaint: no complaints this morning Procedure to be performed/Plan: left heart catheterization Allergies Allergy/AdvReac Type Severity Reaction Status Date / Time No Known Allergies Allergy Unverified 08/19/20 17:05 Home Medications Medication Instructions Recorded Confirmed Type insulin degludec [Tresiba 40 unit SUBCUT HS 08/19/20 08/19/20 History FlexTouch U-200] insulin lispro See Protocol SUBCUT TID 08/19/20 08/19/20 History tamsulosin 0.4 mg PO HS 08/19/20 08/19/20 History Current Medications: Active Medications Acetaminophen (Acetaminophen 325 Mg Tablet) 650 mg PO Q4H PRN PRN Reason: Mild Pain (1-3) or Fever Artificial Tears (Artificial Tears Op Soln 15 Ml Bottle) 1 drop EACH EYE QID PRN PRN Reason: Dry Eye(s) Last Admin: 08/21/20 08:04 Dose: 1 drop Documented by: Aspirin (Aspirin 81 Mg Chewable Tablet) 81 mg PO DAILY@0800 [facility] Last Admin: 08/22/20 08:03 Dose: 81 mg Documented by: Carvedilol (Carvedilol 6.25 Mg Tablet) 6.25 mg PO Q12HR [facility] Last Admin: 08/22/20 08:03 Dose: 6.25 mg Documented by: Dextrose (Dextrose 50% 25 Gm/50 Ml Syringe) 12.5 gm IV PUSH PRN PRN; Protocol PRN Reason: Hypoglycemia Enoxaparin Sodium (Enoxaparin 120 Mg/0.8 Ml Syringe) 120 mg SUB-Q Q12H [facility] Last Admin: 08/22/20 08:02 Dose: Not Given Documented by: Famotidine (Famotidine 20 Mg/2 Ml Vial) 20 mg IV PUSH Q12HR [facility] Last Admin: 08/22/20 08:03 Dose: 20 mg Documented by: Glucagon (Glucagon For Inj 1 Mg Vial) 1 mg IM PRN PRN; Protocol PRN Reason: Hypoglycemia Glucose (Glucose Oral Gel 15 Gm Of Glucse In 37.5 Gm Tube) 15 gm PO PRN PRN; Protocol PRN Reason: Hypoglycemia Dextrose (Dextrose 5% 1,000 Ml) 1,000 mls @ 100 mls/hr IVPB PRN PRN; Protocol PRN Reason: Hypoglycemia Insulin Aspart (Insulin Aspart (*Bkc) 100 Units/Ml) 2 - 5 units SUB-Q TIDWM [facility]; Protocol Last Admin: 08/22/20 08:02 Dose: Not Given Documented by: Insulin Glargine (Insulin Glargine (*Bkc) 100 Units/Ml) 40 units SUB-Q [facility] Last Admin: 08/21/20 21:01 Dose: 40 units Documented by: Lisinopril (Lisinopril 10 Mg Tablet) 10 mg PO DAILY [facility] Last Admin: 08/22/20 08:03 Dose: 10 mg Documented by: Lorazepam (Lorazepam Inj (*Crx) 2 Mg/Ml Vial) 0.5 mg IV PUSH Q6H PRN PRN Reason: Anxiety Nitroglycerin (Nitroglycerin Sl 0.4 Mg Tablet) 0.4 mg SUBLINGUAL Q5MIN PRN PRN Reason: Chest Pain Ondansetron HCl (Ondansetron Inj 4 Mg/2 Ml Vial) 4 mg IV PUSH Q4H PRN PRN Reason: Nausea Quetiapine Fumarate (Quetiapine Fumarate 12.5 Mg Tablet) 12.5 mg PO [facility] Last Admin: 08/21/20 18:29 Dose: 12.5 mg Documented by: Rosuvastatin Calcium (Rosuvastatin 10 Mg Tablet) [facility] Last Admin: 08/22/20 08:03 Dose: 10 mg Documented by: Tamsulosin HCl (Tamsulosin Hcl 0.4 Mg Capsule) 0.4 mg PO [facility] Last Admin: 08/21/20 20:53 Dose: 0.4 mg Documented by: Sedation/Anesthesia: No previous sedation/anesthesia problems (including family history). 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 Jackson History of tonsillectomy Fami
--- NOTE | 2020-08-22 09:06 | WPDCARDPROC ---
Cardiac Cath Procedure Note Date of procedure:: 08/22/20 Performing physician:: Rodney Jackson MD Indication:: non ST-elevation [place] Brief clinical history:: this is a 80-year-old man who underwent PCI of the circumflex approximately 6 years ago. Following that he was lost to follow-up and was taking no medication for coronary artery disease for a number of years. He is diabetic and being treated with insulin. He presented to the hospital at the end of last week with a chest pain incident and ruled in for acute NH by enzymes. ECG was essentially unremarkable. In the setting a follow-up angiogram has been recommended. Procedure Procedure performed:: Left ventriculography coronary angiography Sedation/Medication given:: no sedation administered case start time 8:45 a.m. case end time 9:03 a.m. Access site:: right femoral artery Estimated blood loss:: 10-15 cc Procedure note:: patient was brought to the cardiac catheterization lab where the right femoral triangle was prepared and draped in the normal fashion. Anesthesia was% lidocaine infiltrated locally. Using the modified Seldinger technique a 5 Prydeinig sheath was placed into the femoral artery. After this left heart catheterization was carried out. I used a 5 Prydeinig angled pigtail catheter to measure left-sided hemodynamics and to injected LV g in the OTERO projection. After this the pigtail catheter was withdrawn. A 5 Prydeinig FL4 catheter was used to engage and inject the left coronary artery in multiple projections. A 5 Prydeinig JR4 catheter was used to engage and inject the right coronary artery. The cine angiograms were then reviewed in detail and the case was terminated. The patient was taken to the holding area for manual sheath removal. 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 Because of a history of some degree of dementia I elected to provide no intravenous sedation for this angiogram. Findings:: Hemodynamics: Central aortic pressure is 158 over 62 left ventricle 160 over 0 end-diastolic pressure 14. No significant gradient across the aortic valve on pullback. Left ventricle: The LV is mildly enlarged the posterior segment appears to be akinetic the remainder of the LV is mildly globally hypodynamic. The global ejection fraction is estimated to be 45%. The left main coronary artery is large in caliber and nicely patent the left anterior descending is a moderate caliber artery extending down to around the apex and providing a significant portion of the inferior wall as well. The LAD has mild irregular atherosclerotic plaquing proximally and in the midportion of the vessel there is a discrete 90% stenosis. The circumflex is a moderate caliber artery with only 1 very large marginal branch. The proximal segment of this marginal has a previously deployed stent which is nicely patent there is no significant loss of lumen in this segment. More distally in this vessel there is a 95% discrete stenosis that which has features compatible with a acute culprit lesion. The vessel is moderate size distal to this and free of stenosis distal to this lesion. The right coronary artery is moderate caliber and dominant to the posterior circulation the RPDA is small because of the long LAD wrapping around the apex as described above. There is severe complex high-grade proximal disease in the 1st portion of the RCA with a long area of 95-99% stenosis. The distal RCA and large RPL branch appeared to be free of significantly lesion. Conclusion:: 1. Severe diffuse three-vessel coronary artery disease with high-grade stenosis in the large OM circumflex branch distal to the previous stent target which appears to be a culprit for non ST elevation NH with which he presented over the weekend. 2. Unrelated high-grade lesions in the mid LAD as well as in the proximal RCA where there is severe complex proximal high
--- NOTE | 2020-08-22 11:37 | SUR.PHASEII ---
1130- Patient transferred back to ICU-2. Report given to Sophie DIAZ. Patient and site assessed at bedside by this RN and EMILY Barrios.
[2020-08-22 11:59] LABS: Glucose Point of Care 106 mg/dl (65-105)
[2020-08-22] MEDS: SODIUM CHLORIDE 0.9% IV 1,000 ML 125 ML IV CONT (12:38)
--- NOTE | 2020-08-22 14:51 | PM.IMPN ---
Subjective Date/time seen: 08/22/20 14:51 Interval history: 80-year-old male with past medical history of insulin-dependent diabetes mellitus, hypertension and coronary artery disease who presented to the ER via private vehicle due to chest pain. Pt found to have a nstemi, pt is heart cath, pt found to have triple vessel disease, will need urgent transfer for CABG, cardiology discussing with their colleagues. Objective Data Vital Signs Vital Signs: Vital Signs - 24 hr 08/21/20 15:58 08/21/20 16:00 08/21/20 17:35 Temperature Pulse Rate 72 69 59 L Respiratory Rate 24 H Blood Pressure 104/53 L Pulse Oximetry 98 08/21/20 20:00 08/21/20 20:52 08/21/20 22:00 Temperature 36.4 C Pulse Rate 73 79 70 Respiratory Rate 20 Blood Pressure 100/55 L Pulse Oximetry 97 08/22/20 00:00 08/22/20 02:00 08/22/20 04:00 Temperature 37.2 C Pulse Rate 74 75 78 Respiratory Rate 18 22 H Blood Pressure 148/78 H 152/86 H Pulse Oximetry 95 100 08/22/20 06:00 08/22/20 07:53 08/22/20 08:00 Temperature 36.9 C Pulse Rate 60 75 79 Respiratory Rate 16 Blood Pressure 126/65 Pulse Oximetry 97 08/22/20 08:03 08/22/20 09:25 08/22/20 09:30 Temperature 36.6 C Pulse Rate 77 78 79 Respiratory Rate 12 16 Blood Pressure 146/74 H 156/78 H Pulse Oximetry 100 100 08/22/20 09:40 08/22/20 09:50 08/22/20 10:00 Temperature Pulse Rate 78 78 77 Respiratory Rate 20 15 18 Blood Pressure 146/67 H 144/77 H 136/71 Pulse Oximetry 99 99 100 08/22/20 10:15 08/22/20 10:30 08/22/20 10:45 Temperature Pulse Rate 75 73 72 Respiratory Rate 14 19 21 H Blood Pressure 135/75 140/72 130/88 Pulse Oximetry 99 99 96 08/22/20 11:00 08/22/20 11:30 Temperature Pulse Rate 72 72 Respiratory Rate 23 H 18 Blood Pressure 145/74 H 152/80 H Pulse Oximetry 98 100 Intake/Output Intake/Output: Intake & Output 08/19/20 08/20/20 08/21/20 08/22/20 23:59 23:59 23:59 23:59 Intake Total 1200 1800 300 Output Total 1300 2050 850 Balance -100 -250 -550 Meds/Results Medications: Active Medications Generic Name Dose Route Start Last Admin Trade Name Freq PRN Reason Stop Dose Admin Acetaminophen 650 mg 08/19/20 21:23 Acetaminophen 325 Mg Tablet PO Q4H PRN Mild Pain (1-3) or Fever Artificial Tears 1 drop 08/20/20 15:29 08/21/20 08:04 Artificial Tears Op Soln 15 Ml Bottle EACH EYE 1 drop QID PRN Administration Dry Eye(s) Aspirin 81 mg 08/20/20 08:00 08/22/20 08:03 Aspirin 81 Mg Chewable Tablet PO 81 mg DAILY@0800 WARNER Administration Carvedilol 6.25 mg 08/20/20 09:00 08/22/20 08:03 Carvedilol 6.25 Mg Tablet PO 6.25 mg Q12HR WARNER Administration Dextrose 12.5 gm 08/19/20 21:56 Dextrose 50% 25 Gm/50 Ml Syringe IV PUSH PRN PRN Hypoglycemia Protocol Enoxaparin Sodium 120 mg 08/20/20 08:00 08/22/20 08:02 Enoxaparin 120 Mg/0.8 Ml Syringe SUB-Q Not Given Q12H WARNER Famotidine 20 mg 08/20/20 09:00 08/22/20 08:03 Famotidine 20 Mg/2 Ml Vial IV PUSH 20 mg Q12HR AWRNER Administration Glucagon 1 mg 08/19/20 21:56 Glucagon For Inj 1 Mg Vial IM PRN PRN Hypoglycemia Protocol Glucose 15 gm 08/19/20 21:56 Glucose Oral Gel 15 Gm Of Glucse In 37.5 Gm Tube PO PRN PRN Hypoglycemia Protocol Dextrose 1,000 mls @ 100 mls/hr 08/19/20 21:56 Dextrose 5% 1,000 Ml IVPB PRN PRN Hypoglycemia Protocol Sodium Chloride 1,000 mls @ 125 mls/hr 08/22/20 11:00 08/22/20 12:38 Normal Saline Iv IV CONT 08/22/20 18:59 125 mls/hr .Q8H ONE Administration Insulin Aspart 2 - 5 units 08/20/20 08:00 08/22/20 12:43 Insulin Aspart (*Bkc) 100 Units/Ml SUB-Q Not Given TIDWM WARNER Protocol Insulin Glargine 40 units 08/20/20 21:00 08/21/20 21:01 Insulin Glargine (*Bkc) 100 Units/Ml SUB-Q 40 units HS WARNER Administration Lisinopril 10 mg 08/20/20 09:00 08/22/20 08
--- NOTE | 2020-08-22 16:17 | PC.NURSE ---
[facility] flyer was given to patient.
--- NOTE | 2020-08-22 17:24 | PM.TDS ---
Transfer Discharge Sum: Prov Provider Date of admission: 08/19/20 21:23 Primary care physician: Rodney Vila, Admitting clinician: Roberta Amado DO Consults: 08/19/20 21:26 Consult to Physician Routine Comment: Consulting Provider: Rodney Jackson Reason for consultation: nstemi Has provider been notified: Yes DS: Admitting Diagnosis Admitting Diagnosis Admitting Diagnosis: CHEST PAIN DS: Discharge Diagnosis Discharge Diagnosis (1) Non-ST elevation [place] (NSTEMI): Code(s): I21.4 - Non-ST elevation (NSTEMI) myocardial infarction Status: Acute Assessment and Plan: 80-year-old male with past medical history of insulin-dependent diabetes mellitus, hypertension and coronary artery disease who presented to the ER via private vehicle due to chest pain. Pt found to have a nstemi, pt is heart cath, pt found to have triple vessel disease, will need urgent transfer for CABG, cardiology discussing with their colleagues. (2) Type 2 diabetes mellitus with hyperglycemia, with long-term current use of insulin: Code(s): E11.65 - Type 2 diabetes mellitus with hyperglycemia; Z79.4 - prison (current) use of insulin Status: Acute Assessment and Plan: HBaic is 8. low-dose sliding scale insulin with Accu-Cheks ACHS and hypoglycemia protocol. (3) Essential hypertension: Code(s): I10 - Essential (primary) hypertension Status: Acute Assessment and Plan: Coreg 6.25 mg p.o. b.i.d. and lisinopril 10 mg p.o. watch daily Bps (4) Dementia: Code(s): F03.90 - Unspecified dementia without behavioral disturbance Status: Acute Assessment and Plan: Episode of sundowning confusion and agitation last night with fall and sustained scalp laceration, ct head was negative. Pt started on Seroquel and iv ativan. Transfer Discharge Sum: Med Medications Active and Home Medications: Home Medications insulin degludec [Tresiba FlexTouch U-200] 40 unit SUBCUT HS 08/19/20 [History Confirmed 08/19/20] insulin lispro See Protocol SUBCUT TID 08/19/20 [History Confirmed 08/19/20] tamsulosin 0.4 mg PO HS 08/19/20 [History Confirmed 08/19/20] Active Medications Acetaminophen (Acetaminophen 325 Mg Tablet) 650 mg PO Q4H PRN PRN Reason: Mild Pain (1-3) or Fever Artificial Tears (Artificial Tears Op Soln 15 Ml Bottle) 1 drop EACH EYE QID PRN PRN Reason: Dry Eye(s) Last Admin: 08/21/20 08:04 Dose: 1 drop Documented by: Aspirin (Aspirin 81 Mg Chewable Tablet) 81 mg PO DAILY@0800 [facility] Last Admin: 08/22/20 08:03 Dose: 81 mg Documented by: Carvedilol (Carvedilol 6.25 Mg Tablet) 6.25 mg PO Q12HR [facility] Last Admin: 08/22/20 08:03 Dose: 6.25 mg Documented by: Dextrose (Dextrose 50% 25 Gm/50 Ml Syringe) 12.5 gm IV PUSH PRN PRN; Protocol PRN Reason: Hypoglycemia Enoxaparin Sodium (Enoxaparin 120 Mg/0.8 Ml Syringe) 120 mg SUB-Q Q12H [facility] Last Admin: 08/22/20 08:02 Dose: Not Given Documented by: Famotidine (Famotidine 20 Mg/2 Ml Vial) 20 mg IV PUSH Q12HR [facility] Last Admin: 08/22/20 08:03 Dose: 20 mg Documented by: Glucagon (Glucagon For Inj 1 Mg Vial) 1 mg IM PRN PRN; Protocol PRN Reason: Hypoglycemia Glucose (Glucose Oral Gel 15 Gm Of Glucse In 37.5 Gm Tube) 15 gm PO PRN PRN; Protocol PRN Reason: Hypoglycemia Dextrose (Dextrose 5% 1,000 Ml) 1,000 mls @ 100 mls/hr IVPB PRN PRN; Protocol PRN Reason: Hypoglycemia Sodium Chloride (Normal Saline Iv) 1,000 mls @ 125 mls/hr IV CONT .Q8H ONE Stop: 08/22/20 18:59 Last Admin: 08/22/20 12:38 Dose: 125 mls/hr Documented by: Insulin Aspart (Insulin Aspart (*Bkc) 100 Units/Ml) 2 - 5 units SUB-Q TIDWM [facility]; Protocol Last Admin: 08/22/20 12:43 Dose: Not Given Documented by: Insulin Glargine (Insulin Glargine (*Bkc) 100 Units/Ml) 40 units SUB-Q HS [facility] Last Admin: 08/21/20 21:01 Dose: 40 units Documented by: Lisinopril (Lisinopril 10 Mg Tablet) 10 mg PO DAILY [facility] Last Admin: 08/22/20
== END 2020-08-22 18:06 | disposition short-term general hospital (02) | DRG 282 ==
LOC: ANHED 21:12 → ANHICU 08-20 04:33
PROVIDERS: Family Medicine; Specialist; Admitting Provider Internal Medicine; Emergency Provider Emergency Medicine; PCP Internal Medicine; Visit Provider Family Medicine
PROC: 4A023N7 Measurement of Cardiac Sampling and Pressure, Left Heart, Percutaneous Approach (ICD-10-PCS; CPT 93452; principal; 2020-08-22 08:30)
DX: I21.4 Non-ST elevation (NSTEMI) myocardial infarction (principal); I10 Essential (primary) hypertension; I25.10 Atherosclerotic heart disease of native coronary artery without angina pectoris; E78.5 Hyperlipidemia, unspecified; E11.42 Type 2 diabetes mellitus with diabetic polyneuropathy; E11.319 Type 2 diabetes mellitus with unspecified diabetic retinopathy without macular edema; I25.2 Old myocardial infarction; S01.01XA Laceration without foreign body of scalp, initial encounter; W19.XXXA Unspecified fall, initial encounter; F03.90 Unspecified dementia, unspecified severity, without behavioral disturbance, psychotic disturbance, mood disturbance, and anxiety
CPT/HCPCS: 36415; 70450; 71046; 72125; 80048; 80061; 82948; 83036; 84484; 85025; 85610; 85730; 93005; 93458; 96372; 96374; 99291; A9270; C1887; C1894; C8929; J0461; J1644; J1650; J1815; J2250; J3010; J7030; J7040; Q9957

== ENCOUNTER 2020-09-23 11:03 | Outpatient (CLI) | payer MEDICARE, SELFPAY ==
--- NOTE | ~2020-09-23 | CT_ITS ---
EXAMINATION: CT abdomen pelvis wo con DATE: 09/23/2020 11:39 INDICATION: Prostate cancer TECHNIQUE: Computed tomography (CT) of the abdomen and pelvis was performed without intravenous contr ast. The dose-length product (DLP) was 1341.86 mGy-cm. Automated exposure control and iterative recon struction technique were employed. COMPARISON: 03/31/2011 FINDINGS: Minimal dependent atelectasis and scarring is present in the lung bases. There are also bobbi cified nodules of the lung bases, consistent with old granulomatous disease. The heart size is normal . Calcified coronary artery atherosclerosis is noted. Punctate calcifications in otherwise normal renate earing liver and spleen likely represent healed granulomatous disease. The pancreas and adrenal gland s are normal. Stones are present in the gallbladder which is collapsed. There is a 5 mm nonobstructin g stone of the left kidney. There is a 5 mm nonobstructing stone of the right mid kidney. There is ca lcified atherosclerosis of the aorta and many of the other arteries. No pathologically enlarged abdom inal or pelvic lymph nodes are identified. The prostate is enlarged. The appendix is normal. There ar e healed bilateral rib fractures as well as a healed fracture of the right inferior pubic ramus. Ther e is severe thoracic and lower lumbar spondylosis. There are bilateral L5 pars defects with grade 1 a nterolisthesis of L5 on S1. IMPRESSION: 1. No evidence of metastatic disease. Reviewed, dictated and finalized at location A.
== END 2020-09-23 11:04 | disposition home or self-care (01) ==
PROVIDERS: PCP Internal Medicine; Visit Provider Urology
DX: C61 Malignant neoplasm of prostate (principal)
CPT/HCPCS: 74176

== ENCOUNTER 2020-09-28 11:01 | Outpatient (CLI) | payer MEDICARE, SELFPAY ==
--- NOTE | ~2020-09-28 | NM_ITS ---
EXAMINATION: NM bone scan whole body DATE: 09/28/2020 14:20 INDICATION: Prostate cancer TECHNIQUE: 23.2 mCi Tc-99m HDP was administered intravenously. Delayed whole-body scintigrams were o btained. COMPARISON: CT abdomen and pelvis dated 09/23/2020 and chest radiograph dated 08/19/2020 FINDINGS: Typical pattern of mild likely degenerative disc centered uptake at several levels in the mid to lowe r thoracic and lower lumbar spine with corresponding severe disc height loss with degenerative endpla te changes on prior CT. Additional mild likely degenerative joint centered uptake at the bilateral sa cral iliac joints, bilateral knees and elbows and region of the right first and second metatarsophala ngeal joints. Mild increased uptake associated with hypertrophic change at the bilateral anterior fir st ribs, left greater than right. Focus of more intense increased uptake at the radial aspect of the right carpus which could be either degenerative or related to extravasation at the site of injection. There is intense increased uptake at the distal most right tibia which is of indeterminate etiology. No other suspicious foci of abnormal bone uptake. IMPRESSION: 1. Indeterminate region of relatively intense bone uptake in the region of the distalmost right ankle which would be an atypical location for metastatic disease particularly given the absence of any add itional suspicious bone lesions. Recommend obtaining radiograph of the right ankle for correlation. 2. More typical pattern of scattered foci of likely degenerative joint and disc centered uptake as de tailed above. Reviewed, dictated and finalized at location A. IMPRESSION: 1. Indeterminate region of relatively intense bone uptake in the region of the distalmost right ankle which would be an atypical location for metastatic disea se particularly given the absence of any additional suspicious bone lesions. Re commend obtaining radiograph of the right ankle for correlation. 2. More typical pattern of scattered foci of likely degenerative joint and disc centered uptake as detailed above.
== END 2020-09-28 11:02 | disposition home or self-care (01) ==
PROVIDERS: PCP Internal Medicine; Visit Provider Urology
DX: C61 Malignant neoplasm of prostate (principal); R93.7 Abnormal findings on diagnostic imaging of other parts of musculoskeletal system
CPT/HCPCS: 78306; A9561

== ENCOUNTER 2020-11-21 13:30 | Outpatient (RCR) | payer MEDICARE, SELFPAY ==
[2020-09-30 08:46] VITALS: PULSE 88
--- NOTE | 2020-11-07 16:31 | PCCPR ---
Nikita has not attended the last 4 sessions, called today to check in. No answer, left message.
--- NOTE | 2020-12-01 14:07 | PCCPR ---
Addendum entered by Jessenia Anna RN 12/01/20 15:01: Nikita and Justino called back and Nikita request to discharge from the program. Nikita felt that he was not improving. I gave him examples of how he has benefited from the program so far but he was very insistent on discharging. Original Note: Nikita has not attended last three sessions, called today and left message with .
== END 2020-12-01 15:03 | disposition home or self-care (01) ==
LOC: ANHCPREHAB 13:30
PROVIDERS: PCP Internal Medicine; Visit Provider Specialist
DX: Z95.5 Presence of coronary angioplasty implant and graft (principal)
CPT/HCPCS: 93798

== ENCOUNTER 2020-12-09 15:22 | Inpatient (IN) | payer MEDICARE, SELFPAY ==
--- NOTE | ~2020-12-09 | CT_ITS ---
EXAMINATION: CT brain wo con INDICATION: Head injury COMPARISON: 08/20/2020 TECHNIQUE: Standard unenhanced head CT. The dose-length product (DLP) was 681.00 mGy-cm. The mA was a djusted according to patient size. Iterative reconstruction technique was employed. FINDINGS: There is no acute intraparenchymal hemorrhage. No evidence of mass lesion. No evidence of a cute infarction. An old lacunar infarct of the left internal capsule is again noted. There is mild pe riventricular and subcortical hypodensity probably related to small vessel ischemic disease. There is mild prominence of the sulci and ventricles related to cerebral atrophy. Intracranial calcified cere bral atherosclerosis is noted. There are no extra-axial collections. There is no mass effect or midli ne shift. The orbits and soft tissues are unremarkable. There is mild mucosal thickening of the paran dianne sinuses. IMPRESSION: 1. No acute intracranial abnormality. 2. Age related findings. Reviewed, dictated and finalized at location B.
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
--- NOTE | ~2020-12-09 | XR_ITS ---
EXAMINATION: XR foot LT min 3V EXAM DATE: 12/09/2020 16:34 INDICATION: Left foot wound, fever. TECHNIQUE: Left foot dorsoplantar, lateral and oblique projections obtained and reviewed. Comparison is made to prior examination from 04/10/2012. FINDINGS: Patient is status post left 5th transmetatarsal amputation. There are no bony erosions micah ntified. There are no acute fractures identified. There is soft tissue swelling over the midfoot, and probably over the medial aspect of the hindfoot with possible soft tissue ulceration or wound identi fied, clinical correlation. There are arterial calcifications, arteriosclerosis. [place]. IMPRESSION: 1. Left foot soft tissue swelling and probable wound. 2. Chronic findings. Reviewed, dictated and finalized at location A.
--- NOTE | ~2020-12-09 | XR_ITS ---
EXAMINATION: XR chest 2V EXAM DATE: 12/09/2020 16:34 INDICATION: Fever. Foot wound. TECHNIQUE: Frontal and lateral projections of the chest obtained and reviewed. Comparison is made to prior examination from 08/19/2020. FINDINGS: The lungs are clear. There are no pleural effusions. Cardiac silhouette is prominent but magnified on this AP technique. There is no pneumothorax suspected. The bones and soft tissues are unremarkable. IMPRESSION: No acute cardiopulmonary findings. Reviewed, dictated and finalized at location A.
--- NOTE | ~2020-12-09 | US_ITS ---
EXAMINATION: US art doppler mary KINCAID DATE: 12/12/2020 11:28 INDICATION: Left foot wound. Neuropathy to the bilateral lower extremities. Type 2 diabetes. Basilar calcifications in the left lower limb. TECHNIQUE: Segmental pressures and plethysmographic and Doppler waveforms of the brachial and lower e xtremity arteries were obtained. COMPARISON: None. FINDINGS: Right and left brachial artery pressures of 133 mm Hg and 135 mm Hg, respectively, are concordant (no rmal difference <= 30 mmHg). The right and left high-thigh pressure indices were unable to be obtaine d due to inability to occlude the vessels at the high thighs (normal > 1.2). The right ankle-brachial index (PANKAJ) a similarly unable to be obtained due to inability to occlude th e vessels at the right ankle (normal >= 0.9-1). The right great toe-brachial index (TBI) is 2.79 (nor mal >= 0.6-0.8). Arterial waveforms are biphasic with brisk systolic upstrokes are clearly visualized . The amplitude of the waveforms at the right posterior tibial and dorsalis pedis arteries are insuff icient for accurate assessment. The left PANKAJ is similarly unable to be obtained due to inability to occlude the vessels at the left a nkle. The left TBI is 0.61. Arterial waveforms are biphasic with brisk systolic upstrokes throughout . IMPRESSION: 1. Normal right TBI and borderline left TBI, consistent with mild arterial occlusive disease to the l eft lower limb. 2. Many of the arteries throughout both lower limbs were unable to be occluded including at the bilat eral ankles precluding assessment of ABIs, likely due to vessel wall calcification as seen on prior C T imaging of the left foot. Reviewed, dictated and finalized at location A. IMPRESSION: 1. Normal right TBI and borderline left TBI, consistent with mild arterial occl usive disease to the left lower limb. 2. Many of the arteries throughout both lower limbs were unable to be occluded including at the bilateral ankles precluding assessment of ABIs, likely due to vessel wall calcification as seen on prior CT imaging of the left foot.
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
--- NOTE | ~2020-12-09 | CT_ITS ---
EXAMINATION: CT brain wo con, CT cervical spine wo con EXAM DATE: 12/10/2020 13:14 INDICATION: Status post fall. Confusion. Prostate cancer. Diabetes.. TECHNIQUE: Spiral CT of the head was performed without contrast. Axial, coronal and sagittal images were reviewed. Spiral CT of the cervical spine was performed without contrast. Axial images were rev iewed. Coronal and sagittal reformatted images were also reviewed. The dose-length product (DLP) fo r this examination was 681.00 (accession [id number]), 466.32 (accession [id number]) mGy-cm. The exposure was tailored according to patient size, and iterative reconstruction (ASIR) was used as additional dose reduction technique. Comparison is made to prior examination from 12/09/2020. 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 There is no acute intraparenchymal hemor rhage. No evidence of intraparenchymal brain mass lesion. No evidence of acute infarction. There is mild periventricular and subcortical hypodensity, nonspecific but probably related to small vessel i schemic disease. There is mild to moderate prominence of the sulci and ventricles related to cerebr al atrophy. There is no mass effect or midline shift. There is no obstructive hydrocephalus suspec yenny. There are no extra-axial collections. There are no acute calvarial fractures. The orbits are unremarkable. Soft tissue is unremarkable. The visualized sinuses and mastoid air cells are well ae rated. CERVICAL CT: Left thyroid nodule up to 5 cm, probably the finding described on an ultrasound from 200 8. There is no evidence of acute cervical fracture. The odontoid process is intact. Pre-dens space is normal. Prevertebral soft tissue is normal. There are no soft tissue abnormalities identified. There is no disc space widening or traumatic vertebral body subluxation suspected. Moderate to kellen re loss of the disc height at C3-4 and 4-5, some significant neural foraminal stenosis at these 2 lev els. A detailed level by level evaluation of spondylosis can be added as addendum if requested. IMPRESSION: 1. No acute intracranial findings or cervical fracture. 2. Cervical spondylosis. 3. Left thyroid lobe nodule. 4. Age-related intracranial findings. Reviewed, dictated and finalized at location A. IMPRESSION: 1. No acute intracranial findings or cervical fracture. 2. Cervical spondylosis. 3. Left thyroid lobe nodule. 4. Age-related intracranial findings.
--- NOTE | ~2020-12-09 | XR_ITS ---
EXAMINATION: XR chest 1V portable EXAM DATE: 12/10/2020 13:20 INDICATION: shortness of breath . TECHNIQUE: Portable AP frontal chest x-ray was obtained. Comparison is made to prior examination from 12/09/2020. FINDINGS: The lungs are clear. There are no pleural effusions. Cardiac silhouette is prominent but magnified on this AP technique. There is no pneumothorax suspected. The bones and soft tissues are unremarkable. IMPRESSION: No acute cardiopulmonary findings. Reviewed, dictated and finalized at location A.
[2020-12-09 15:24] VITALS: BP 112/58; PULSE 101; RESP 34; TEMP 39.3; O2SAT 99
--- NOTE | 2020-12-09 15:30 | ECG_ITS ---
Measurements Intervals [place] Rate: 100 P: 43 [place]: 187 QRS: 73 QRSD: 88 T: 50 QT: 363 QTc: 470 Interpretive Statements SINUS TACHYCARDIA MINIMAL Q WAVES- INFERIOR LEADS BORDERLINE ST ABNORMALITY- INFERIOR LEADS BASELINE WANDER- V1, V4-V6 BORDERLINE ECG Electronically Signed On 12-09-2020 19:06:32 CDT by Timoteo Aviles D.O.
[2020-12-09 15:56] LABS: Basophils Absolute Auto 0.1 K/mm3 (0.0-0.1); Basophils Percent Auto 0.4 % (0.2-1.2); Eosinophils Percent Auto 0.1 % (0-4.4); Hematocrit 38.8 % (42.0-52.0); Immature Granulocyte Absolute 0.08 K/mm3 (0.00-0.031); Immature Granulocyte Percent A 0.5 % (0-0.5); Lymphocytes Absolute Auto 0.61 K/mm3 (0.9-3.2); Lymphocytes Percent Auto 3.5 % (18.3-44.2); Mean Corpuscular HGB Conc 33.5 g/dl (32-36); Mean Corpuscular Hemoglobin 31.6 pg (26-34); Mean Corpuscular Volume 94.2 fl (80-100); Mean Platelet Volume 10.9 fl (7.4-10.4); Monocytes Absolute Auto 0.5 K/mm3 (0.1-0.6); Monocytes Percent Auto 2.6 % (2.6-8.5); Neutrophils Absolute Auto 16.3 K/mm3 (1.3-6.7); Neutrophils Percent Auto 92.9 % (45.5-73.1); Platelet Count Result 241 k/mm3 (150-375); Red Blood Count 4.12 M/mm3 (4.6-6.20); Red Cell Distribution Width 12.4 % (11.5-14.5); White Blood Count 17.6 K/mm3 (4.5-10.0)
[2020-12-09 16:07] LABS: Alanine Aminotransferase 25 U/L (4-50); Albumin Level 3.8 g/dL (3.5-5.1); Alkaline Phosphatase 112 U/L (38-126); Anion Gap 4 mmol/L (8-16); Aspartate Amino Transferase 31 U/L (17-59); Bilirubin,Total 0.8 mg/dL (0.2-1.3); Blood Urea Nitrogen 24 mg/dL (9-20); Calcium 8.9 mg/dL (8.4-10.2); Carbon Dioxide 28 mmol/L (22-30); Chloride 106 mmol/L (98-107); Estimated CRCL calculation 48 ml/min; Estimated Glomerular Filt Rate 45; Glucose 144 mg/dL (65-110); Potassium 3.8 mmol/L (3.4-5.0); Sodium 138 mmol/L (137-145)
[2020-12-09 16:12] LABS: Add Urine Microscopic? YES; Appearance Urine Cloudy (Clear); Bacteria Urine Trace /hpf; Bilirubin Urine Negative (Negative); Blood Urine Negative (Negative); Color Urine Amber (Yellow); Glucose Urine UA 3+ mg/dL (Negative); Ketones Urine Negative (Negative); Leukocyte Esterase Ur Negative LEU/UL (Negative); Mucus Urine Rare /lpf; Nitrate Urine Negative (Negative); Protein Urine 2+ mg/dL (Negative); Specific Grav Ur 1.023 (1.001-1.035); Squamous Epithelial Cell Urine Rare /hpf (Few); Urobilinogen Urine Negative mg/dL (<2.0); WBC Urine 0-3 /hpf
[2020-12-09 16:49] VITALS: BP 126/67; PULSE 92; RESP 24; TEMP 38.8; O2SAT 100
[2020-12-09] MEDS: SODIUM CHLORIDE 0.9% IV 1,000 ML 999 ML IV CONT (17:05)
[2020-12-09 17:15] VITALS: TEMP 38.8
[2020-12-09 17:17] VITALS: BP 128/69; PULSE 90; RESP 33; O2SAT 98
[2020-12-09 17:37] LABS: Lactic Acid Reflex 2.2 mmol/L (0.7-2.1)
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
[2020-12-09 17:57] LABS: Erythrocyte Sedimentation Rate 68 mm/hr (0-20)
[2020-12-09 19:06] VITALS: BP 121/64; PULSE 81; RESP 24; TEMP 36.7; O2SAT 100
[2020-12-09 19:29] LABS: CRP 8.9 mg/dL (<1.0)
[2020-12-09 20:00] VITALS: BP 119/66; PULSE 77; RESP 18; TEMP 36.9; O2SAT 97; BMI 33.8
[2020-12-09 20:18] LABS: Reflex Lactic Acid Yes or No Add Lactic
[2020-12-09 20:45] VITALS: BMI 33.7
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
--- NOTE | 2020-12-09 20:53 | ADMGEN ---
This patient, Nikita Cordova, was admitted to [facility] Surg Room 316-01. Patient/family oriented to hospital policies and general routines including ID bracelet, bed and alarms, visiting hours, pain management, procedures, bathroom and other care routines, personal items, smoking policy, room service/diet, and visiting hours. Information on how to activate the Rapid Response Team has been discussed. Patient/Family are encouraged to report perceived risks to care and to ask questions if they do not understand what they are told or what they should do.
[2020-12-09] MEDS: SODIUM CHLORIDE 0.9% IV 1,000 ML 125 ML IV CONT (21:14)
[2020-12-09 21:29] LABS: Lactic Acid 1.1 mmol/L (0.7-2.1)
[2020-12-10] VITALS (11 sets, daily range): BP systolic 148–210; BP diastolic 72–102; PULSE 77–112; RESP 18–30; TEMP 36.7–38.1; O2SAT 93–98
[2020-12-10 06:52] LABS: Basophils Absolute Auto 0.1 K/mm3 (0.0-0.1); Basophils Percent Auto 0.3 % (0.2-1.2); Eosinophils Absolute Auto 0.1 K/mm3 (0-0.3); Eosinophils Percent Auto 0.5 % (0-4.4); Hematocrit 36.9 % (42.0-52.0); Hemoglobin 12.4 g/dL (14.0-18.0); Immature Granulocyte Absolute 0.07 K/mm3 (0.00-0.031); Immature Granulocyte Percent A 0.4 % (0-0.5); Lymphocytes Percent Auto 7.4 % (18.3-44.2); Mean Corpuscular HGB Conc 33.6 g/dl (32-36); Mean Corpuscular Hemoglobin 31.1 pg (26-34); Mean Corpuscular Volume 92.5 fl (80-100); Mean Platelet Volume 11.2 fl (7.4-10.4); Monocytes Absolute Auto 1.1 K/mm3 (0.1-0.6); Neutrophils Absolute Auto 15.1 K/mm3 (1.3-6.7); Neutrophils Percent Auto 85.4 % (45.5-73.1); Platelet Count Result 234 k/mm3 (150-375); Red Blood Count 3.99 M/mm3 (4.6-6.20); Red Cell Distribution Width 12.3 % (11.5-14.5); White Blood Count 17.7 K/mm3 (4.5-10.0)
[2020-12-10 07:03] LABS: Anion Gap 12 mmol/L (8-16); Blood Urea Nitrogen 24 mg/dL (9-20); Calcium 8.4 mg/dL (8.4-10.2); Carbon Dioxide 23 mmol/L (22-30); Chloride 103 mmol/L (98-107); Estimated CRCL calculation 66 ml/min; Estimated Glomerular Filt Rate > 60; Glucose 196 mg/dL (65-110); Potassium 3.8 mmol/L (3.4-5.0); Sodium 138 mmol/L (137-145)
[2020-12-10 07:20] LABS: Hemoglobin A1C 9.1 % (<5.7)
[2020-12-10 08:08] LABS: Glucose Point of Care 199 mg/dl (65-105)
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
[2020-12-10] MEDS: ENOXAPARIN 40 MG/0.4 ML SYRINGE SUB-Q (09:20)
[2020-12-10] MEDS: SODIUM CHLORIDE 0.9% IV 1,000 ML 125 ML IV CONT ×2 (09:20→17:24)
[2020-12-10] MEDS: polyethylene glycoL 3350 17 GM POWD.PACK PO (10:33)
[2020-12-10 12:09] LABS: Glucose Point of Care 309 mg/dl (65-105)
[2020-12-10] MEDS: INSULIN ASPART (*BKC) 100 UNITS/ML SUB-Q ×2 (12:14→17:50)
--- NOTE | 2020-12-10 12:46 | ECG_ITS ---
Measurements Intervals [place] Rate: 101 P: 41 WV: 203 QRS: 46 QRSD: 89 T: 31 QT: 336 QTc: 437 Interpretive Statements SINUS TACHYCARDIA DELAYED PRECORDIAL R/S TRANSITION MINIMAL Q WAVES- INFERIOR LEADS BORDERLINE ST-T WAVE ABNORMALITY- INFERIOR LEADS BASELINE ARTIFACT- I, II, III, AVL, V2 BORDERLINE ECG Electronically Signed On 12-10-2020 15:49:46 CDT by Timoteo Aviles D.O.
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
[2020-12-10] MEDS: LABETALOL HCL INJ 100 MG/20 ML VIAL 10 MG IV PUSH ×2 (13:55→19:58)
[2020-12-10 14:42] LABS: Lactic Acid Reflex 1.5 mmol/L (0.7-2.1)
[2020-12-10 16:42] LABS: Glucose Point of Care 430 mg/dl (65-105)
--- NOTE | 2020-12-10 16:46 | PM.CNGS ---
Assessment and Plan Assessment and plan (1) Diabetic infection of left foot: Onset Date: Unknown Code(s): E11.628 - Type 2 diabetes mellitus with other skin complications; L08.9 - Local infection of the skin and subcutaneous tissue, unspecified Status: Acute Assessment and Plan: Patient appears to have an open wound and some infection with surrounding cellulitis on the medial instep of his left foot. Will last wound care nurses to follow patient with me Saturday Will obtain bilateral arterial ultrasound studies to evaluate arterial inflow wound healing potential. Will debride the callus and small amount of necrotic tissue within the base of this wound. 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 He has erythema extending across the top of his foot over toward the 5th metatarsal area not really extending on to any of his smaller toes, may be a little onto the great toe and then also onto the plantar surface of his foot. this was all outlined with an indelible ink marker so that we could see if this got worse or better over the next few days. (3) Type 2 diabetes mellitus with hyperglycemia, with long-term current use of insulin: Onset Date: Unknown Code(s): E11.65 - Type 2 diabetes mellitus with hyperglycemia; Z79.4 - group home (current) use of insulin Status: Chronic Assessment and Plan: This is longstanding Hospitalists are watching this and giving him something similar to his normal home insulin. (4) Acute kidney injury: Onset Date: Unknown Code(s): N17.9 - Acute kidney failure, unspecified Status: Acute Assessment and Plan: Patient is being rehydrated. Follow further labs. (5) Essential hypertension: Onset Date: Unknown Code(s): I10 - Essential (primary) hypertension Status: Acute Assessment and Plan: Believe hospitalist's have him on his normal home meds. History of Present Illness Consult details Consult date: 12/10/20 Reason for consult: wound care Requesting physician: Roberta Amado DO Narrative: Pt. reports a wound on the Left foot which he believes has been chronic and does not know when drainage started. Apparently he also has also had some constipation. No BM for the past three days. He does not remember falling at home yesterday prior to his evaluation in the [facility] and admission to this floor. See Dr. Amado's H&P for further details about his history of present illness. I was asked to see the patient regarding the open wound on the medial left foot. X-ray was reviewed and CT scan of the foot reviewed independently and with Dr. Mehul Mcconnell in the radiology department this date. There were no obvious bone changes and no obvious fracture. This appears to be mainly cellulitis and a opening of a chronic wound that has callus around it. Patient may not have even noticed it because he has an anesthetic area there due to his neuropathy related to his long-term diabetes type 2 with insulin requirements. Today denies any headache today. No change in vision. He currently denies any CP, Dyspnea, N/V/D. He remains A&Ox2-3/ Receiving Primaxin and Vancomycin currently. Review of Systems Constitutional: Constitutional: Reports as per HPI and Denies headache(s) Eyes: Eyes: Denies loss of vision and Denies eye pain ENT: Reports Normal hearing present, Denies change in voice, Denies dizziness and Denies headache(s) Cardiovascular: Cardiovascular: Denies chest pain and Denies dyspnea Respiratory: Respiratory: Denies dyspnea and Denies wheezing Musculoskeletal: Musculoskeletal: Denies back pain and Denies arthralgias Comments: Denies pain to his lower extremity on either side. Integumentary/Breasts
[2020-12-10] MEDS: INSULIN GLARGINE (*BKC) 100 UNITS/ML 40 UNITS SUB-Q (18:03)
[2020-12-10] MEDS: INSULIN ASPART (*BKC) 100 UNITS/ML 15 UNITS SUB-Q (18:04)
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
[2020-12-10] MEDS: DONEPEZIL HCL 10 MG TABLET PO (22:03)
[2020-12-10 22:22] LABS: Glucose Point of Care 158 mg/dl (65-105)
[2020-12-11] VITALS (9 sets, daily range): BP systolic 111–162; BP diastolic 61–82; PULSE 85–115; RESP 18–20; TEMP 37.2–37.7; O2SAT 96–98
[2020-12-11] MEDS: SODIUM CHLORIDE 0.9% IV 1,000 ML 125 ML IV CONT (03:02)
[2020-12-11 06:44] LABS: Estimated CRCL calculation 88 ml/min; Estimated Glomerular Filt Rate > 60
[2020-12-11 07:41] LABS: Glucose Point of Care 219 mg/dl (65-105)
[2020-12-11] MEDS: INSULIN ASPART (*BKC) 100 UNITS/ML 15 UNITS SUB-Q ×3 (07:43→17:09)
[2020-12-11 08:10] LABS: Glucose Point of Care 215 mg/dl (65-105)
[2020-12-11] MEDS: INSULIN ASPART (*BKC) 100 UNITS/ML SUB-Q ×3 (08:59→17:09)
[2020-12-11] MEDS: CLOPIDOGREL BISULFATE 75 MG TABLET PO (09:46)
[2020-12-11] MEDS: polyethylene glycoL 3350 17 GM POWD.PACK PO (09:46)
[2020-12-11] MEDS: ROSUVASTATIN 10 MG TABLET 20 MG PO (09:46)
[2020-12-11] MEDS: carvediloL 12.5 MG TABLET PO (09:47)
[2020-12-11] MEDS: SILVERGEL (ELTA) 45 ML 1 APPLIC TOPICAL (09:48)
[2020-12-11] MEDS: ENOXAPARIN 40 MG/0.4 ML SYRINGE SUB-Q (09:48)
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
[2020-12-11 10:55] LABS: Basophils Absolute Auto 0.1 K/mm3 (0.0-0.1); Basophils Percent Auto 0.4 % (0.2-1.2); Eosinophils Percent Auto 0.3 % (0-4.4); Hematocrit 33.9 % (42.0-52.0); Hemoglobin 11.6 g/dL (14.0-18.0); Immature Granulocyte Absolute 0.06 K/mm3 (0.00-0.031); Immature Granulocyte Percent A 0.4 % (0-0.5); Lymphocytes Absolute Auto 1.39 K/mm3 (0.9-3.2); Lymphocytes Percent Auto 10.4 % (18.3-44.2); Mean Corpuscular HGB Conc 34.2 g/dl (32-36); Mean Corpuscular Hemoglobin 32.1 pg (26-34); Mean Corpuscular Volume 93.9 fl (80-100); Mean Platelet Volume 11.3 fl (7.4-10.4); Monocytes Absolute Auto 1.5 K/mm3 (0.1-0.6); Monocytes Percent Auto 11.2 % (2.6-8.5); Neutrophils Absolute Auto 10.3 K/mm3 (1.3-6.7); Neutrophils Percent Auto 77.3 % (45.5-73.1); Platelet Count Result 225 k/mm3 (150-375); Red Blood Count 3.61 M/mm3 (4.6-6.20); Red Cell Distribution Width 12.3 % (11.5-14.5); White Blood Count 13.3 K/mm3 (4.5-10.0)
[2020-12-11 11:03] LABS: Alanine Aminotransferase 26 U/L (4-50); Albumin Level 3.5 g/dL (3.5-5.1); Alkaline Phosphatase 89 U/L (38-126); Anion Gap 10 mmol/L (8-16); Aspartate Amino Transferase 47 U/L (17-59); Bilirubin,Total 0.5 mg/dL (0.2-1.3); Blood Urea Nitrogen 17 mg/dL (9-20); Calcium 8.5 mg/dL (8.4-10.2); Carbon Dioxide 21 mmol/L (22-30); Chloride 104 mmol/L (98-107); Estimated CRCL calculation 88 ml/min; Estimated Glomerular Filt Rate > 60; Glucose 198 mg/dL (65-110); Magnesium 2.2 mg/dL (1.6-2.3); Potassium 3.9 mmol/L (3.4-5.0); Sodium 135 mmol/L (137-145)
[2020-12-11] MEDS: amLODIPine BESYLATE 5 MG TABLET PO (11:41)
[2020-12-11 12:03] LABS: Glucose Point of Care 201 mg/dl (65-105)
--- NOTE | 2020-12-11 15:20 | PM.PNGS ---
Progress Note: A&P Assessment and Plan (1) Diabetic infection of left foot: Onset Date: Unknown Code(s): E11.628 - Type 2 diabetes mellitus with other skin complications; L08.9 - Local infection of the skin and subcutaneous tissue, unspecified Status: Acute Assessment and Plan: Patient appears to have an open wound and some infection with surrounding cellulitis on the medial instep of his left foot. Will ask wound care nurses to follow patient with me starting Saturday Will obtain bilateral arterial ultrasound studies to evaluate arterial inflow wound healing potential. Debrided the callus and small amount of necrotic tissue within the base of this wound at bedside on 12/10. cellulitis has receded from the outlying that I perla with indelible ink 1 12/[address] findings would recommend orthopedic consult tomorrow with Dr. Marely Bloom who has seen the patient before to see if he feels further surgery is needed this man has had long-term diabetes patient also now scheduled for arterial ultrasound to check in flow in view of his atherosclerotic disease. 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 He has erythema extending across the top of his foot over toward the 5th metatarsal area not really extending on to any of his smaller toes. This was all outlined with an indelible ink marker so that we could see if this got worse or better over the next few days. 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 (4) Acute kidney injury: Onset Date: Unknown Code(s): N17.9 - Acute kidney failure, unspecified Status: Acute Assessment and Plan: Patient is being rehydrated. Follow further labs. (5) Essential hypertension: Onset Date: Unknown Code(s): I10 - Essential (primary) hypertension Status: Acute Assessment and Plan: Believe hospitalist's have him on his normal home meds. Subjective Subjective Date/Time Seen: 12/11/20 10:20 Post Op day: 1 ( from bedside debridement of open wound.) Patient reports: no new complaints and feels better Exam Const: General: cooperative, no acute distress, well developed, alert and awake Nutritional Appearance: well nourished Orientation/consciousness: oriented to person Limitations: altered mental status (Some of dementia and memory loss) and physical limitations (Poor balance with recent falls) HENMT: Head: normal to inspection, normocephalic and atraumatic Ears: hearing grossly normal bilaterally General nose exam: Normal external nose present Face and sinus: normal facial exam Mouth: Yes Normal oral and palatal mucosa present, Yes tongue normal and Yes moist mucous membranes Chest: Chest palpation & inspection: normal inspection of the chest Resp: Effort & Inspection: normal respiratory effort and able to speak in complete sentences Auscultation: clear to auscultation bilaterally Cardio: Jugular venous distension: no JVD Rate: regular rate Rhythm: regular rhythm Skin: General skin exam: no rashes or lesions noted and scars Lesions: no lesions Rashes: no rashes Trauma: no lacerations or abrasions Wounds: wounds noted (Medial instep left foot with wound now nicely open and slight drainage) Hair: normal Nails: normal Other: C & S pendind cellulitis has receded from the area I outlined on 12/10. Extrem: General: normal to inspection, full ROM, no clubbing, c
[2020-12-11] MEDS: INSULIN GLARGINE (*BKC) 100 UNITS/ML 40 UNITS SUB-Q (17:12)
[2020-12-11 17:13] LABS: Glucose Point of Care 216 mg/dl (65-105)
[2020-12-11] MEDS: DONEPEZIL HCL 10 MG TABLET PO (22:29)
[2020-12-11 23:52] LABS: Vancomycin Trough 11.2 ug/mL (10.0-20.0)
[2020-12-12] VITALS (10 sets, daily range): BP systolic 115–128; BP diastolic 50–62; PULSE 75–96; RESP 18; TEMP 36.8–38; O2SAT 96–100
[2020-12-12 01:40] LABS: Glucose Point of Care 149 mg/dl (65-105)
[2020-12-12 07:20] LABS: Basophils Absolute Auto 0.1 K/mm3 (0.0-0.1); Basophils Percent Auto 0.5 % (0.2-1.2); Eosinophils Absolute Auto 0.1 K/mm3 (0-0.3); Eosinophils Percent Auto 1.2 % (0-4.4); Hematocrit 33.4 % (42.0-52.0); Hemoglobin 11.4 g/dL (14.0-18.0); Immature Granulocyte Percent A 0.9 % (0-0.5); Lymphocytes Absolute Auto 1.32 K/mm3 (0.9-3.2); Lymphocytes Percent Auto 11.4 % (18.3-44.2); Mean Corpuscular HGB Conc 34.1 g/dl (32-36); Mean Corpuscular Hemoglobin 31.6 pg (26-34); Mean Corpuscular Volume 92.5 fl (80-100); Mean Platelet Volume 10.9 fl (7.4-10.4); Monocytes Absolute Auto 1.2 K/mm3 (0.1-0.6); Monocytes Percent Auto 10.5 % (2.6-8.5); Neutrophils Absolute Auto 8.7 K/mm3 (1.3-6.7); Neutrophils Percent Auto 75.5 % (45.5-73.1); Platelet Count Result 232 k/mm3 (150-375); Red Blood Count 3.61 M/mm3 (4.6-6.20); Red Cell Distribution Width 12.1 % (11.5-14.5); White Blood Count 11.5 K/mm3 (4.5-10.0)
[2020-12-12] MEDS: INSULIN ASPART (*BKC) 100 UNITS/ML 15 UNITS SUB-Q ×3 (07:28→17:37)
[2020-12-12 07:33] LABS: Anion Gap 8 mmol/L (8-16); Blood Urea Nitrogen 20 mg/dL (9-20); Calcium 8.4 mg/dL (8.4-10.2); Carbon Dioxide 25 mmol/L (22-30); Chloride 102 mmol/L (98-107); Estimated CRCL calculation 66 ml/min; Estimated Glomerular Filt Rate > 60; Glucose 212 mg/dL (65-110); Potassium 3.5 mmol/L (3.4-5.0); Sodium 135 mmol/L (137-145)
[2020-12-12 07:34] LABS: Glucose Point of Care 204 mg/dl (65-105)
[2020-12-12] MEDS: CLOPIDOGREL BISULFATE 75 MG TABLET PO (08:08)
[2020-12-12] MEDS: ROSUVASTATIN 10 MG TABLET 20 MG PO (08:08)
[2020-12-12] MEDS: carvediloL 12.5 MG TABLET PO (08:09)
[2020-12-12] MEDS: amLODIPine BESYLATE 5 MG TABLET PO (08:09)
[2020-12-12] MEDS: polyethylene glycoL 3350 17 GM POWD.PACK PO (08:09)
[2020-12-12] MEDS: ENOXAPARIN 40 MG/0.4 ML SYRINGE SUB-Q (08:10)
[2020-12-12] MEDS: SILVERGEL (ELTA) 45 ML 1 APPLIC TOPICAL (08:12)
[2020-12-12] MEDS: INSULIN ASPART (*BKC) 100 UNITS/ML SUB-Q ×2 (09:28→12:42)
--- NOTE | 2020-12-12 11:09 | PCOTNOTE ---
Attempted for occupational therapy this AM. Per RN out for a scan. Will attempt again later if time allows.
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
[2020-12-12 12:21] LABS: Glucose Point of Care 233 mg/dl (65-105)
--- NOTE | 2020-12-12 14:07 | WPDINFPN2 ---
Progress Note: A&P Assessment and Plan (1) Diabetic infection of left foot: Onset Date: Unknown Code(s): E11.628 - Type 2 diabetes mellitus with other skin complications; L08.9 - Local infection of the skin and subcutaneous tissue, unspecified Status: Acute Assessment and Plan: DFI without osteomyelitis REC Imipenem through 12/23. Subjective Date/time seen: 12/12/20 14:07 Objective Data Vital Signs Vital Signs: Vital Signs - 24 hr 12/11/20 16:00 12/11/20 20:00 12/11/20 22:00 Temperature 37.2 C Pulse Rate 88 88 85 Respiratory Rate 20 Blood Pressure 139/70 Pulse Oximetry 96 12/12/20 00:00 12/12/20 04:00 12/12/20 08:00 Temperature Pulse Rate 87 87 89 Respiratory Rate Blood Pressure Pulse Oximetry 96 12/12/20 08:09 Temperature Pulse Rate 84 Respiratory Rate Blood Pressure Pulse Oximetry Intake/Output Intake/Output: Intake & Output 12/09/20 12/10/20 12/11/20 12/12/20 23:59 23:59 23:59 23:59 Intake Total 1200 4340 3670 1640 Output Total 750 925 700 Balance 1200 3590 2745 940 Meds/Results Medications: Active Medications Generic Name Dose Route Start Last Admin Trade Name Freq PRN Reason Stop Dose Admin Acetaminophen 650 mg 12/09/20 18:09 Acetaminophen 325 Mg Tablet PO Q4H PRN Mild Pain (1-3) or Fever Hydrocodone Bitart/Acetaminophen 1 tab 12/09/20 18:09 Hydrocodone/Acetaminophen (*Crx) 5-325 Mg Tablet PO Q4H PRN Pain Rated 4-6 Amlodipine Besylate 5 mg 12/11/20 10:10 12/12/20 08:09 Amlodipine Besylate 5 Mg Tablet PO 5 mg QAM WARNER Administration Carvedilol 12.5 mg 12/11/20 09:00 12/12/20 08:09 Carvedilol 12.5 Mg Tablet PO 12.5 mg DAILY WARNER Administration Clopidogrel Bisulfate 75 mg 12/11/20 09:00 12/12/20 08:08 Clopidogrel Bisulfate 75 Mg Tablet PO 75 mg DAILY WARNER Administration Dextrose 12.5 gm 12/09/20 20:54 Dextrose 50% 25 Gm/50 Ml Syringe IV PUSH PRN PRN Hypoglycemia Protocol Donepezil HCl 10 mg 12/10/20 21:00 12/11/20 22:29 Donepezil Hcl 10 Mg Tablet PO 10 mg HS WARNER Administration Enoxaparin Sodium 40 mg 12/10/20 09:00 12/12/20 08:10 Enoxaparin 40 Mg/0.4 Ml Syringe SUB-Q 40 mg DAILY WARNER Administration Glucagon 1 mg 12/09/20 20:54 Glucagon For Inj 1 Mg Vial IM PRN PRN Hypoglycemia Protocol Glucose 15 gm 12/09/20 20:54 Glucose Oral Gel 15 Gm Of Glucse In 37.5 Gm Tube PO PRN PRN Hypoglycemia Protocol Imipenem/Cilastatin Sodium 500 mg in 100 mls @ 300 mls/hr 12/10/20 02:00 12/12/20 09:27 Primaxin 500 Mg/D5w 100 Ml IVPB 300 mls/hr Q8H WARNER Administration Dextrose 1,000 mls @ 100 mls/hr 12/09/20 20:54 Dextrose 5% 1,000 Ml IVPB PRN PRN Hypoglycemia Protocol Vancomycin HCl 1,750 mg in 500 mls @ 250 mls/hr 12/12/20 00:00 12/12/20 12:44 Vancomycin 1,750 Mg/D5w 500 Ml IVPB 250 mls/hr Q12H WARNER Administration Insulin Aspart 3 - 6 units 12/10/20 08:00 12/12/20 12:42 Insulin Aspart (*Bkc) 100 Units/Ml SUB-Q 3 units TIDWM WARNER Administration Protocol Insulin Aspart 15 units 12/11/20 06:30 12/12/20 12:41 Insulin Aspart (*Bkc) 100 Units/Ml SUB-Q 15 units AC WARNER Administration Insulin Glargine 40 units 12/10/20 17:00 12/11/20 17:12 Insulin Glargine (*Bkc) 100 Units/Ml SUB-Q 40 units DAILY@1700 WARNER Administration Labetalol HCl 10 mg 12/10/20 16:54 12/10/20 19:58 Labetalol Hcl Inj 100 Mg/20 Ml Vial IV PUSH 10 mg Q6HR PRN Administration hypertension Morphine Sulfate 4 mg 12/09/20 22:50 Morphine Sulfate (*Crx) 4 Mg/Ml Inj IV PUSH Q4H PRN Pain Rated 7-10 Ondansetron HCl 4 mg 12/09/20 18:09 Ondansetron Inj 4 Mg/2 Ml Vial IV PUSH Q4H PRN Nausea Polyethylene Glycol 17 gm 12/10/20 09:00 12/12/20 08:09 Polyethylene Glycol 3350 17 Gm Powd.Pack PO 17 gm QAM WARNER Admini
[2020-12-12] MEDS: HYDROcodone/acetaminophen (*CRX) 5-325 MG TABLET 1 TAB PO (14:41)
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
[2020-12-12 17:17] LABS: Glucose Point of Care 141 mg/dl (65-105)
[2020-12-12] MEDS: INSULIN GLARGINE (*BKC) 100 UNITS/ML 40 UNITS SUB-Q (17:40)
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
[2020-12-12] MEDS: DONEPEZIL HCL 10 MG TABLET PO (20:56)
[2020-12-12 21:44] LABS: Glucose Point of Care 150 mg/dl (65-105)
[2020-12-13] VITALS (15 sets, daily range): BP systolic 107–174; BP diastolic 67–96; PULSE 69–110; RESP 16–23; TEMP 36.2–37.4; O2SAT 94–99
[2020-12-13] MEDS: MORPHINE SULFATE (*CRX) 4 MG/ML INJ IV PUSH (00:09)
[2020-12-13 06:36] LABS: Glucose Point of Care 149 mg/dl (65-105)
[2020-12-13 09:34] LABS: Hematocrit 40.2 % (42.0-52.0); Hemoglobin 13.5 g/dL (14.0-18.0); Mean Corpuscular HGB Conc 33.6 g/dl (32-36); Mean Corpuscular Hemoglobin 30.9 pg (26-34); Mean Platelet Volume 10.3 fl (7.4-10.4); Platelet Count Result 328 k/mm3 (150-375); Red Blood Count 4.37 M/mm3 (4.6-6.20)
[2020-12-13 09:52] LABS: Anion Gap 12 mmol/L (8-16); Blood Urea Nitrogen 20 mg/dL (9-20); Carbon Dioxide 27 mmol/L (22-30); Chloride 99 mmol/L (98-107); Estimated CRCL calculation 72 ml/min; Estimated Glomerular Filt Rate > 60; Glucose 197 mg/dL (65-110); Potassium 3.8 mmol/L (3.4-5.0); Sodium 138 mmol/L (137-145)
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
--- NOTE | 2020-12-13 11:00 | WPDHPUPDATE1 ---
History and Physical Update Update Date/Time: 12/13/20 11:00 History and Physical has been reviewed, including an updated exam of the patient. There are NO changes in the patient's condition. Risks, benefits, and alternatives have been discussed and questions answered. Patient agrees to proceed with procedure.
[2020-12-13 12:39] LABS: Glucose Point of Care 236 mg/dl (65-105)
--- NOTE | 2020-12-13 12:43 | PC.NURSE ---
To OR per [ ], IV [ ]. Report given to [ ].
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
--- NOTE | 2020-12-13 14:03 | PCOTNOTE ---
Attempted to see patient this pm, however patient off floor for surgery at this time.
[2020-12-13] MEDS: LACTATED RINGERS 1,000 ML 30 ML IV CONT (14:16)
[2020-12-13 14:29] LABS: Glucose Point of Care 203 mg/dl (65-105)
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
--- NOTE | 2020-12-13 15:22 | PCPTNOTE ---
Attempted to see patient for PT this pm, however patient off floor for surgery at this time.
[2020-12-13] MEDS: ONDANSETRON INJ 4 MG/2 ML VIAL IV PUSH (15:33)
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
--- NOTE | 2020-12-13 16:24 | PC.NURSE ---
Returned from OR per [ Sydney]. Report received from [ Sydney].
[2020-12-13 17:34] LABS: Glucose Point of Care 230 mg/dl (65-105)
[2020-12-13] MEDS: INSULIN ASPART (*BKC) 100 UNITS/ML 15 UNITS SUB-Q (18:02)
[2020-12-13] MEDS: INSULIN ASPART (*BKC) 100 UNITS/ML SUB-Q (18:03)
[2020-12-13] MEDS: INSULIN GLARGINE (*BKC) 100 UNITS/ML 40 UNITS SUB-Q (18:04)
[2020-12-13] MEDS: DONEPEZIL HCL 10 MG TABLET PO (20:14)
[2020-12-13 20:57] LABS: Glucose Point of Care 125 mg/dl (65-105)
[2020-12-14 05:38] VITALS: BP 159/76; PULSE 88; RESP 16; TEMP 36.4; O2SAT 99
[2020-12-14 06:50] LABS: Hematocrit 34.6 % (42.0-52.0); Hemoglobin 11.8 g/dL (14.0-18.0); Mean Corpuscular HGB Conc 34.1 g/dl (32-36); Mean Corpuscular Hemoglobin 31.6 pg (26-34); Mean Corpuscular Volume 92.8 fl (80-100); Mean Platelet Volume 10.6 fl (7.4-10.4); Platelet Count Result 288 k/mm3 (150-375); Red Blood Count 3.73 M/mm3 (4.6-6.20); Red Cell Distribution Width 12.1 % (11.5-14.5); White Blood Count 13.3 K/mm3 (4.5-10.0)
[2020-12-14 07:02] LABS: Anion Gap 10 mmol/L (8-16); Blood Urea Nitrogen 22 mg/dL (9-20); Calcium 8.6 mg/dL (8.4-10.2); Carbon Dioxide 26 mmol/L (22-30); Chloride 102 mmol/L (98-107); Estimated CRCL calculation 66 ml/min; Estimated Glomerular Filt Rate > 60; Glucose 156 mg/dL (65-110); Potassium 3.6 mmol/L (3.4-5.0); Sodium 138 mmol/L (137-145)
[2020-12-14 08:21] LABS: Glucose Point of Care 172 mg/dl (65-105)
[2020-12-14 09:00] VITALS: BP 161/88; PULSE 85; RESP 20; TEMP 37.1; O2SAT 96
[2020-12-14 09:48] VITALS: BP 160/86; PULSE 84; RESP 16; TEMP 37.1; O2SAT 97
[2020-12-14 12:15] LABS: Glucose Point of Care 187 mg/dl (65-105)
[2020-12-14 12:24] VITALS: BMI 33.7
--- NOTE | 2020-12-14 12:28 | PM.PNORT ---
Progress Note: A&P Assessment and Plan (1) Diabetic infection of left foot: Onset Date: Unknown Code(s): E11.628 - Type 2 diabetes mellitus with other skin complications; L08.9 - Local infection of the skin and subcutaneous tissue, unspecified Status: Acute Assessment and Plan: postoperative day 1 left foot debridement. Wound VAC dressing placed this morning to assist with wound healing. Slight improvement in erythema and swelling. Surgical findings reviewed with the patient. Plan for fracture boot with partial weight-bearing, PT/OT. Disposition when medically stable plan to go with wound VAC and IV antibiotics. Follow up in wound clinic in 2 weeks. Subjective Subjective Date/Time Seen: 12/14/20 12:28 Post Op day: 1 (Left foot debridement) Principal diagnosis: left diabetic foot ulcer Interval history: awake and alert. Minimal complaints of pain. Exam Const: General: cooperative, no acute distress, well developed and poor hygiene Nutritional Appearance: average body habitus Orientation/consciousness: oriented to person and oriented to place Limitations: no limitations HENMT: Mouth: Yes moist mucous membranes Eyes: General: appearance normal, both eyes and all related structures Neck: Neck: supple and no JVD Resp: Effort & Inspection: normal respiratory effort Cardio: Rate: regular rate Rhythm: regular rhythm GI: Inspection: non-distended GI Palp: Yes Soft to palpation and No Tenderness to palpation present (GI) Neuro: Speech: normal speech Extrem: Left lower extremity: ankle ( redness, warmth and swelling to the medial aspect of the left ankle) and foot Details: abnormal to inspection ( Fifth ray amputation, wound VAC dressing in place), warmth, vascular exam ( unable to palpate pedal pulses) Details: abnormal capillary refill ( sluggish) Location: of all toes; not of the 5th digit and motor-sensory exam ( insensate to mid jay) two point discrimination normal and light-touch abnormal Other: Redness, warmth and swelling to the medial aspect of the left ankle with slight improbvement. Dressing changes morning with wound VAC placed Patient with mild limitations with inversion. Positive ankle dorsiflexion/ plantar flexion /eversion. Unable to palpate pedal pulses of the left foot. No visible wound on the right foot. Patient is insensate bilaterally to just below the knee. Psych: Mental Status: mental status grossly normal Affect: normal affect Objective Data Vital Signs Vital Signs: Vital Signs - 24 hr 12/13/20 13:28 12/13/20 14:16 12/13/20 14:30 Temperature 97.8 F 97.1 F L Pulse Rate 69 90 102 H Respiratory Rate 18 23 H 20 Blood Pressure 149/81 H 142/70 H 107/81 Pulse Oximetry 98 98 96 12/13/20 14:45 12/13/20 15:00 12/13/20 15:15 Temperature Pulse Rate 102 H 105 H 98 Respiratory Rate 20 20 16 Blood Pressure 155/88 H 138/85 148/90 H Pulse Oximetry 96 94 95 12/13/20 15:30 12/13/20 15:45 12/13/20 16:00 Temperature Pulse Rate 95 95 110 H Respiratory Rate 18 20 20 Blood Pressure 163/83 H 174/96 H 174/90 H Pulse Oximetry 95 98 96 12/13/20 16:10 12/13/20 16:25 12/13/20 16:55 Temperature 98.2 F 99.3 F 97.9 F Pulse Rate 96 96 99 Respiratory Rate 18 18 18 Blood Pressure 136/76 149/67 H 172/67 H Pulse Oximetry 95 97 99 12/13/20 17:55 12/13/20 22:00 12/14/20 05:38 Temperature 98.5 F 98.4 F 97.6 F Pulse Rate 97 92 88 Respiratory Rate 19 20 16 Blood Pressure 151/72 H 145/87 H 159/76 H Pulse Oximetry 98 94 99 12/14/20 09:00 12/14/20 09:48 Temperature 98.8 F 98.7 F Pulse Rate 85 84 Respiratory Rate 20 16 Blood Pressure 161/88 H 160/86 H Pulse Oximetry 96 97 Intake/Output Intake/Output: Intake & Output 12/11/20 12/12/20 12/13/20 12/14/20 23:59 23:59 23:59 23:59 Intake Total 3670 2630 1440 840 Output Total 925 1400 2025 500 Balance 2742 2127 -060 340 Meds/Results Medications: Active Medications Generic Name Dose Route Star
[2020-12-14 14:00] VITALS: BP 160/70; PULSE 92; RESP 18; TEMP 36.6; O2SAT 99
--- NOTE | 2020-12-14 15:08 | PCOTNOTE ---
OT re-eval not completed on this date, will follow and attempt tomorrow.
--- NOTE | 2020-12-14 15:25 | PC.NURSE ---
On 12/14/20, the student, Neetu Lorenzo, provided care and completed [facility] documentation on this patient. I have reviewed the student's documentation and agree with the findings.
[2020-12-14 15:31] VITALS: PULSE 64
[2020-12-14] MEDS: carvediloL 12.5 MG TABLET PO (15:31)
[2020-12-14] MEDS: amLODIPine BESYLATE 5 MG TABLET PO (15:31)
[2020-12-14] MEDS: polyethylene glycoL 3350 17 GM POWD.PACK PO (15:31)
[2020-12-14] MEDS: CLOPIDOGREL BISULFATE 75 MG TABLET PO (15:32)
[2020-12-14] MEDS: ENOXAPARIN 40 MG/0.4 ML SYRINGE SUB-Q (15:32)
[2020-12-14] MEDS: ROSUVASTATIN 10 MG TABLET 20 MG PO (15:32)
[2020-12-14] MEDS: INSULIN ASPART (*BKC) 100 UNITS/ML 15 UNITS SUB-Q ×2 (15:34→17:35)
[2020-12-14] MEDS: INSULIN GLARGINE (*BKC) 100 UNITS/ML 40 UNITS SUB-Q (17:25)
[2020-12-14] MEDS: INSULIN ASPART (*BKC) 100 UNITS/ML SUB-Q (17:35)
[2020-12-14 17:41] LABS: Glucose Point of Care 241 mg/dl (65-105)
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
[2020-12-14] MEDS: DONEPEZIL HCL 10 MG TABLET PO (20:49)
[2020-12-14 22:00] VITALS: BP 153/68; PULSE 92; RESP 18; TEMP 36.6; O2SAT 99
[2020-12-14 22:56] LABS: Glucose Point of Care 217 mg/dl (65-105)
[2020-12-15] VITALS (8 sets, daily range): BP systolic 57–166; BP diastolic 34–82; PULSE 66–83; RESP 20; TEMP 36.4–36.7; O2SAT 97–98
[2020-12-15 06:53] LABS: Hematocrit 34.3 % (42.0-52.0); Hemoglobin 11.8 g/dL (14.0-18.0); Mean Corpuscular HGB Conc 34.4 g/dl (32-36); Mean Corpuscular Hemoglobin 32.1 pg (26-34); Mean Corpuscular Volume 93.2 fl (80-100); Platelet Count Result 310 k/mm3 (150-375); Red Blood Count 3.68 M/mm3 (4.6-6.20); Red Cell Distribution Width 11.9 % (11.5-14.5); White Blood Count 11.3 K/mm3 (4.5-10.0)
[2020-12-15 07:08] LABS: Anion Gap 6 mmol/L (8-16); Blood Urea Nitrogen 17 mg/dL (9-20); Calcium 8.8 mg/dL (8.4-10.2); Carbon Dioxide 32 mmol/L (22-30); Chloride 101 mmol/L (98-107); Estimated CRCL calculation 72 ml/min; Estimated Glomerular Filt Rate > 60; Glucose 122 mg/dL (65-110); Potassium 3.4 mmol/L (3.4-5.0); Sodium 139 mmol/L (137-145)
--- NOTE | 2020-12-15 08:09 | PM.PNORT ---
Progress Note: A&P Assessment and Plan (1) Diabetic infection of left foot: Onset Date: Unknown Code(s): E11.628 - Type 2 diabetes mellitus with other skin complications; L08.9 - Local infection of the skin and subcutaneous tissue, unspecified Status: Acute Assessment and Plan: postoperative day 2 left foot debridement. Wound VAC dressing in place. Slight improvement in erythema and swelling. Surgical findings reviewed with the patient. Pathology results showing acute and chronic inflammation. No evidence of necrotizing fasciitis at time of surgery. WBC count improved. Plan for fracture boot with partial weight-bearing, PT/OT. Disposition when medically stable plan to go with wound VAC and IV antibiotics. Follow up in wound clinic in 2 weeks. Okay to discharge from orthopedic standpoint with IV antibiotics and wound VAC. Subjective Subjective Date/Time Seen: 12/15/20 08:09 Post Op day: 2 Principal diagnosis: left diabetic foot ulcer Interval history: no new complaints. Exam Const: General: cooperative, no acute distress, well developed and poor hygiene Nutritional Appearance: average body habitus Orientation/consciousness: oriented to person and oriented to place Limitations: no limitations Eyes: General: appearance normal, both eyes and all related structures Neck: Neck: supple and no JVD Resp: Effort & Inspection: normal respiratory effort Cardio: Rate: regular rate Rhythm: regular rhythm GI: Inspection: non-distended GI Palp: Yes Soft to palpation and No Tenderness to palpation present (GI) Neuro: Speech: normal speech Extrem: Left lower extremity: ankle ( redness, warmth and swelling to the medial aspect of the left ankle) and foot Details: 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ulses) Details: abnormal capillary refill ( sluggish) Location: of all toes; not of the 5th digit; dorsalis pedis pulse absent and posterior tivial pulse absent and motor-sensory exam ( insensate to mid jay) two point discrimination normal and light-touch abnormal Other: Redness, warmth and swelling to the medial aspect of the left ankle with Continued improvement. wound VAC in place, functioning Patient with mild limitations with inversion. Positive ankle dorsiflexion/ plantar flexion /eversion. Unable to palpate pedal pulses of the left foot. Patient is insensate bilaterally to just below the knee. Psych: Mental Status: mental status grossly normal Affect: normal affect Objective Data Vital Signs Vital Signs: Vital Signs - 24 hr 12/14/20 09:00 12/14/20 09:48 12/14/20 14:00 Temperature 98.8 F 98.7 F 97.8 F Pulse Rate 85 84 92 Respiratory Rate 20 16 18 Blood Pressure 161/88 H 160/86 H 160/70 H Pulse Oximetry 96 97 99 12/14/20 15:31 12/14/20 22:00 12/15/20 06:00 Temperature 97.9 F 97.5 F L Pulse Rate 64 92 83 Respiratory Rate 18 20 Blood Pressure 153/68 H 162/69 H Pulse Oximetry 99 98 Intake/Output Intake/Output: Intake & Output 12/12/20 12/13/20 12/14/20 12/15/20 23:59 23:59 23:59 23:59 Intake Total 2630 1440 1940 175 Output Total 1400 2025 1100 850 Balance 1230 -855 840 675 Meds/Results Medications: Active Medications Generic Name Dose Route Start Last Admin Trade Name Freq PRN Reason Stop Dose Admin Acetaminophen 650 mg 12/09/20 18:09 Acetaminophen 325 Mg Tablet PO Q4H PRN Mild Pain (1-3) or Fever Hydrocodone Bitart/Acetaminophen 1 tab 12/09/20 18:09 12/12/20 14:41 Hydrocodone/Acetaminophen (*Crx) 5-325 Mg Tablet PO 1 tab Q4H PRN Administration Pain Rated 4-6 Amlodipine Besylate 5 mg 12/11/20 10:10 12/14/20 15:31 Amlodipine Besylate 5 Mg Tablet PO 5 mg QAM WARNER Administration Carvedilol 12.5 mg 12/11/20 09:00 12/14/20 15:31 Carvedilol 12.5 Mg Tablet PO 12.5 mg DAILY WARNER Administration Clopidogrel Bisulfate 75 mg 11/30
[2020-12-15] MEDS: ROSUVASTATIN 10 MG TABLET 20 MG PO (08:23)
[2020-12-15] MEDS: carvediloL 12.5 MG TABLET PO (08:23)
[2020-12-15] MEDS: polyethylene glycoL 3350 17 GM POWD.PACK PO (08:23)
[2020-12-15] MEDS: ENOXAPARIN 40 MG/0.4 ML SYRINGE SUB-Q (08:23)
[2020-12-15] MEDS: amLODIPine BESYLATE 5 MG TABLET PO (08:24)
[2020-12-15] MEDS: INSULIN ASPART (*BKC) 100 UNITS/ML 15 UNITS SUB-Q ×2 (08:36→17:37)
[2020-12-15 08:37] LABS: Glucose Point of Care 131 mg/dl (65-105)
--- NOTE | 2020-12-15 08:40 | PCOTNOTE ---
Completed re-assess on this date for Occupational Therapy, continue with plan of care.
--- NOTE | 2020-12-15 09:28 | ECG_ITS ---
Measurements Intervals [place] Rate: 68 P: SD: 0 QRS: 44 QRSD: 99 T: 61 QT: 442 QTc: 471 Interpretive Statements SINUS RHYTHM ATRIAL PREMATURE COMPLEXES LOW QRS VOLTAGE IN PRECORDIAL LEADS MINIMAL Q WAVES- INFERIOR LEADS BORDERLINE ECG Electronically Signed On 12-15-2020 10:13:13 CDT by Timoteo Aviles D.O.
[2020-12-15] MEDS: SODIUM CHLORIDE 0.9% IV 1,000 ML 999 ML IV CONT (09:30)
[2020-12-15 09:33] LABS: Glucose Point of Care 159 mg/dl (65-105)
[2020-12-15 10:39] LABS: Alanine Aminotransferase 47 U/L (4-50); Albumin Level 3.4 g/dL (3.5-5.1); Alkaline Phosphatase 103 U/L (38-126); Anion Gap 12 mmol/L (8-16); Aspartate Amino Transferase 52 U/L (17-59); Bilirubin,Total 0.6 mg/dL (0.2-1.3); Blood Urea Nitrogen 17 mg/dL (9-20); Calcium 8.6 mg/dL (8.4-10.2); Carbon Dioxide 25 mmol/L (22-30); Chloride 103 mmol/L (98-107); Estimated CRCL calculation 66 ml/min; Estimated Glomerular Filt Rate > 60; Glucose 140 mg/dL (65-110); Magnesium 2.1 mg/dL (1.6-2.3); Potassium 3.2 mmol/L (3.4-5.0); Sodium 140 mmol/L (137-145)
[2020-12-15 10:58] LABS: Troponin I 0.012 ng/mL (0.000-0.034)
[2020-12-15] MEDS: POTASSIUM CHLORIDE 20 MEQ TABLET 40 MEQ PO ×2 (11:07→11:12)
[2020-12-15] MEDS: levETIRAcetam 1000MG/NACL100ML 1,000 MG/100 ML BAG 400 MG IVPB (11:07)
--- NOTE | 2020-12-15 11:57 | PCPTNOTE ---
Entered the room to see pt at 0920 with pt requesting to go to the bathroom. Carolyn montalvo was placed near the pt and therapist asked the pt to lift lower extremities to move the bedside table. Pt initially attempted to lift feet, but then lowered them and became unresponsive and stared out the window for ~2 min while therapist yelled pt's name and gave multiple sternal rubs, but still no verbal response from the pt. RN entered and rapid response was called. Pt was noted to be covered in sweat after this unresponsive episode.
[2020-12-15 12:30] LABS: Glucose Point of Care 90 mg/dl (65-105)
[2020-12-15] MEDS: CLOPIDOGREL BISULFATE 75 MG TABLET PO (13:11)
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
[2020-12-15] MEDS: INSULIN GLARGINE (*BKC) 100 UNITS/ML 40 UNITS SUB-Q (17:36)
[2020-12-15 17:59] LABS: Glucose Point of Care 135 mg/dl (65-105)
[2020-12-15] MEDS: levETIRAcetam 500MG/NACL 100ML 500 MG/100 ML BAG 400 MG IVPB (20:43)
[2020-12-15] MEDS: DONEPEZIL HCL 10 MG TABLET PO (20:44)
[2020-12-15 22:28] LABS: Glucose Point of Care 81 mg/dl (65-105)
[2020-12-16] VITALS: PULSE 73
[2020-12-16 03:04] LABS: Glucose Point of Care 69 mg/dl (65-105)
[2020-12-16 04:00] VITALS: PULSE 70
[2020-12-16 06:00] VITALS: BP 129/53; PULSE 78; RESP 18; TEMP 36.2; O2SAT 100
[2020-12-16 07:00] LABS: Hematocrit 32.9 % (42.0-52.0); Hemoglobin 11.4 g/dL (14.0-18.0); Mean Corpuscular HGB Conc 34.7 g/dl (32-36); Mean Corpuscular Hemoglobin 31.5 pg (26-34); Mean Corpuscular Volume 90.9 fl (80-100); Mean Platelet Volume 10.2 fl (7.4-10.4); Platelet Count Result 348 k/mm3 (150-375); Red Blood Count 3.62 M/mm3 (4.6-6.20); Red Cell Distribution Width 11.9 % (11.5-14.5); White Blood Count 10.6 K/mm3 (4.5-10.0)
[2020-12-16 07:17] LABS: Anion Gap 8 mmol/L (8-16); Blood Urea Nitrogen 19 mg/dL (9-20); Calcium 8.2 mg/dL (8.4-10.2); Carbon Dioxide 28 mmol/L (22-30); Chloride 103 mmol/L (98-107); Estimated CRCL calculation 79 ml/min; Estimated Glomerular Filt Rate > 60; Glucose 153 mg/dL (65-110); Potassium 3.5 mmol/L (3.4-5.0); Sodium 139 mmol/L (137-145)
[2020-12-16 08:00] VITALS: PULSE 73
[2020-12-16 08:23] LABS: Glucose Point of Care 137 mg/dl (65-105)
[2020-12-16 08:48] VITALS: PULSE 74
[2020-12-16] MEDS: ENOXAPARIN 40 MG/0.4 ML SYRINGE SUB-Q (08:48)
[2020-12-16] MEDS: polyethylene glycoL 3350 17 GM POWD.PACK PO (08:48)
[2020-12-16] MEDS: levETIRAcetam 500MG/NACL 100ML 500 MG/100 ML BAG 400 MG IVPB (08:48)
[2020-12-16] MEDS: amLODIPine BESYLATE 5 MG TABLET PO (08:48)
[2020-12-16] MEDS: carvediloL 12.5 MG TABLET PO (08:48)
[2020-12-16] MEDS: CLOPIDOGREL BISULFATE 75 MG TABLET PO (08:48)
[2020-12-16] MEDS: ROSUVASTATIN 10 MG TABLET 20 MG PO (08:48)
--- NOTE | 2020-12-16 10:02 | PM.PNORT ---
Progress Note: A&P Assessment and Plan (1) Diabetic infection of left foot: Onset Date: Unknown Code(s): E11.628 - Type 2 diabetes mellitus with other skin complications; L08.9 - Local infection of the skin and subcutaneous tissue, unspecified Status: Acute Assessment and Plan: POD #3: Left Foot Debridement. Wound VAC dressing removed today due to notable maceration on the medial aspect of the midfoot. Improvements rounding erythema and swelling noted. Incision remains well approximated aside from area of open wound. Adaptic placed into wound bed and dressing applied with dry gauze and Kerlix. Wound clinic nurses notified. Will return today to replace wound VAC after allowing skin to dry. Antifungal powder to be placed around the wound bed. Patient to continue fracture boot at this time with partial weight-bearing. Continue PT and OT as tolerated. Dispo: D/C when medically stable plan to go with wound VAC and IV antibiotics. Follow up in wound clinic in 2 weeks. Okay to discharge from orthopedic standpoint with IV antibiotics and wound VAC. Subjective Subjective Date/Time Seen: 12/16/20 10:02 Post Op day: 3 Principal diagnosis: Left diabetic foot ulcer. Interval history: No new complaints today. Rapid response: The patient yesterday due to a syncopal event while working with PT. Notes reviewed. Patient doing well today. No new complaints of pain. Improvement erythema to the left foot. Review of Systems Constitutional: Constitutional: Reports no additional constitutional complaints, Denies excessive sweating, Denies fever(s) and Denies weight gain Eyes: Eyes: Reports no additional eye complaints and Denies change in vision ENT: Reports system reviewed and no additional complaints, except as documented and Reports Normal hearing present Cardiovascular: Cardiovascular: Denies chest pain, Denies diaphoresis, Denies leg ulcers and Denies dyspnea on exertion Respiratory: Respiratory: Reports no additional respiratory complaints, Denies cough and Denies dyspnea on exertion Gastrointestinal: Gastrointestinal: Reports no additional gastrointestinal complaints, Denies abdominal pain, Denies constipation, Denies nausea and Denies vomiting Genitourinary: Genitourinary: Denies hematuria and Denies urinary frequency Musculoskeletal: Musculoskeletal: Reports as per HPI Integumentary/Breasts: Skin/Breast: Reports as per HPI Neurologic: Reports Normal hearing present and Reports other ( Some history of dementia) Endocrine: Endocrine: Reports as per HPI Exam Const: General: cooperative, no acute distress, well developed and poor hygiene Nutritional Appearance: average body habitus Orientation/consciousness: oriented to person and oriented to place Limitations: no limitations Eyes: General: appearance normal, both eyes and all related structures Neck: Neck: supple and no JVD Resp: Effort & Inspection: normal respiratory effort Cardio: Rate: regular rate Rhythm: regular rhythm GI: Inspection: non-distended GI Palp: Yes Soft to palpation and No Tenderness to palpation present (GI) Neuro: Speech: normal speech Extrem: Left lower extremity: ankle ( redness, warmth and swelling to the medial aspect of the left ankle) and foot Details: 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ulses) Details: abnormal capillary refill ( sluggish) Location: of all toes; not of the 5th digit; dorsalis pedis pulse absent and posterior tivial pulse absent and motor-sensory exam ( insensate to mid jay) two point discrimination normal and light-touch abnormal Other: Redness, warmth and swelling to the medial aspect of the left ankle with continued improvement. Wound VAC removed today as there was notable maceration on the medial aspect of the midfoot. Wound VAC cord had been taped to the lateral aspect of the leg and showing indentation.
--- NOTE | 2020-12-16 11:20 | PCNFU ---
Nutrition Follow-Up Complete: Inadequate oral intake related to diet order as evidenced by clear liquid diet. Goal: Patient to consume 75% of meals on advanced diet. Patient has met goal. No new goal. Pt current nutrition is Regular with Simone BID. Last recorded weight is 115.8 kg, no new weight to report. Bowel Motility:+BM 12/15 Labs Reviewed:Alb 2.8 Meds Noted:Miralax,Norvasc, Coreg,Keppra, Lovenox. Additional Notes: Nutrition follow up. Spoke with patient today. He is currently on a regular diet with Simone BID. Oral Intake greater than 75% of meals. Skin: Left foot wound vac. Protein Modular of Simone is providing an additional 90 kcals and 2.5 gms protein. Agree with diet orders. Monitoring: Follow up in 7 days.
--- NOTE | 2020-12-16 11:25 | WPDNEUROLOGY ---
Neurology EEG Report General Information Date of Study: 12/15/20 TEST eeg DIAGNOSIS unresponsiveness CONDITION OF RECORDING awake drowsy and sleep EEG NUMBER [id number] CLINICAL HISTORY Episode of unresponsiveness EEG DESCRIPTION basic resting occipital frequency consists of low-voltage 6 to 7 hertz per 2nd theta activity admixed with multiple muscle artifacts. Bilateral symmetrical sleep activity seen. Hyperventilation not done. Photic stimulation not done. Non paroxysmal. Nonfocal. Nonlateralizing. IMPRESSION Abnormal record due to the presence of bihemispheric theta activity without evidence of any paroxysmal discharge or any focal slow activity. Clinical correlation recommended. These abnormalities are suggestive of organic or metabolic encephalopathy. But there is no evidence of any seizure-like activity
[2020-12-16 12:00] VITALS: PULSE 74
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
[2020-12-16 12:17] LABS: Glucose Point of Care 173 mg/dl (65-105)
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
[2020-12-16] MEDS: INSULIN ASPART (*BKC) 100 UNITS/ML 15 UNITS SUB-Q (13:29)
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
== END 2020-12-16 15:50 | disposition home health service (06) | DRG 623 ==
LOC: ANHED 15:57 → ANH3MEDSUR 19:02
PROVIDERS: Emergency Medicine; Internal Medicine; Orthopaedic Surgery; Admitting Provider Hospitalist; Emergency Provider Emergency Medicine; PCP Internal Medicine; Visit Provider Family Medicine
PROC: 0KBW0ZZ Excision of Left Foot Muscle, Open Approach (ICD-10-PCS; principal; 2020-12-13 14:00)
DX: E11.628 Type 2 diabetes mellitus with other skin complications; L03.116 Cellulitis of left lower limb; L97.329 Non-pressure chronic ulcer of left ankle with unspecified severity; N17.9 Acute kidney failure, unspecified; E11.621 Type 2 diabetes mellitus with foot ulcer; E11.622 Type 2 diabetes mellitus with other skin ulcer; M65.872 Other synovitis and tenosynovitis, left ankle and foot; L08.9 Local infection of the skin and subcutaneous tissue, unspecified; Z18.10 Retained metal fragments, unspecified; E11.65 Type 2 diabetes mellitus with hyperglycemia; L84 Corns and callosities; E11.42 Type 2 diabetes mellitus with diabetic polyneuropathy; E11.319 Type 2 diabetes mellitus with unspecified diabetic retinopathy without macular edema; S09.90XA Unspecified injury of head, initial encounter; W18.30XA Fall on same level, unspecified, initial encounter; I25.10 Atherosclerotic heart disease of native coronary artery without angina pectoris; I10 Essential (primary) hypertension; F03.90 Unspecified dementia, unspecified severity, without behavioral disturbance, psychotic disturbance, mood disturbance, and anxiety; E78.5 Hyperlipidemia, unspecified; K59.00 Constipation, unspecified; N40.0 Benign prostatic hyperplasia without lower urinary tract symptoms; R55 Syncope and collapse; Z79.4 Long term (current) use of insulin; Z89.422 Acquired absence of other left toe(s); Z95.5 Presence of coronary angioplasty implant and graft
CPT/HCPCS: 36415; 36569; 51701; 70450; 71045; 71046; 72125; 73630; 73700; 80048; 80053; 80202; 81001; 82565; 82948; 83036; 83605; 83735; 84484; 85025; 85027; 85652; 86140; 87040; 87070; 87075; 87076; 87205; 88304; 93005; 93923; 95816; 96361; 96365; 96367; 97110; 97162; 97164; 97165; 97530; 97535; 99285; A9270; C1751; G0378; J0131; J0743; J1650; J1815; J1953; J2270; J2405; J2704; J3370; J7030; J7120; L2116

== ENCOUNTER 2020-12-21 17:04 | Outpatient (NON) | payer MEDICARE, SELFPAY ==
[2020-12-21 18:10] LABS: Basophils Absolute Auto 0.1 K/mm3 (0.0-0.1); Basophils Percent Auto 0.6 % (0.2-1.2); Eosinophils Absolute Auto 0.4 K/mm3 (0-0.3); Eosinophils Percent Auto 3.7 % (0-4.4); Hematocrit 33.7 % (42.0-52.0); Hemoglobin 11.4 g/dL (14.0-18.0); Immature Granulocyte Absolute 0.08 K/mm3 (0.00-0.031); Immature Granulocyte Percent A 0.7 % (0-0.5); Lymphocytes Absolute Auto 2.15 K/mm3 (0.9-3.2); Lymphocytes Percent Auto 18.4 % (18.3-44.2); Mean Corpuscular HGB Conc 33.8 g/dl (32-36); Mean Corpuscular Volume 94.7 fl (80-100); Mean Platelet Volume 10.6 fl (7.4-10.4); Monocytes Absolute Auto 0.8 K/mm3 (0.1-0.6); Monocytes Percent Auto 7.1 % (2.6-8.5); Neutrophils Absolute Auto 8.1 K/mm3 (1.3-6.7); Neutrophils Percent Auto 69.5 % (45.5-73.1); Platelet Count Result 371 k/mm3 (150-375); Red Blood Count 3.56 M/mm3 (4.6-6.20); White Blood Count 11.7 K/mm3 (4.5-10.0)
[2020-12-21 18:30] LABS: Anion Gap 8 mmol/L (8-16); Blood Urea Nitrogen 19 mg/dL (9-20); CRP 1.4 mg/dL (<1.0); Calcium 8.4 mg/dL (8.4-10.2); Carbon Dioxide 28 mmol/L (22-30); Chloride 103 mmol/L (98-107); Estimated Glomerular Filt Rate > 60; Glucose 170 mg/dL (65-110); Potassium 3.9 mmol/L (3.4-5.0); Sodium 139 mmol/L (137-145)
== END 2020-12-21 17:05 | disposition home or self-care (01) ==
LOC: ANHLAB 17:07
PROVIDERS: PCP Internal Medicine; Visit Provider Internal Medicine Infectious Disease
DX: L03.116 Cellulitis of left lower limb (principal); A41.9 Sepsis, unspecified organism; Z45.2 Encounter for adjustment and management of vascular access device; Z79.2 Long term (current) use of antibiotics
CPT/HCPCS: 36415; 80048; 85025; 86140

== ENCOUNTER 2021-01-20 11:26 | Inpatient (IN) | payer MEDICARE, SELFPAY ==
[2021-01-20] VITALS (8 sets, daily range): BP systolic 121–194; BP diastolic 71–94; PULSE 61–107; RESP 12–21; TEMP 36.1–37.7; O2SAT 97–100; BMI 33.0
--- NOTE | ~2021-01-20 | CT_ITS ---
EXAMINATION: CT brain wo con DATE: 01/20/2021 12:21 INDICATION: Subdural hematoma TECHNIQUE: Computed tomography (CT) of the head was performed without intravenous contrast. Sagittal and coronal reconstructions were performed. The mA was adjusted according to patient size. Iterative reconstruction technique was employed. The dose-length product was 681.00 mGy-cm. COMPARISON: head CT dated 12/10/2020 FINDINGS: Decrease in size of the previous noted bilateral subdural hygromas now with new higher attenuation bl ood consistent with acute to subacute subdural hematomas. This more extensive overlying the right fro ntal lobe where it measures up to 7 mm in maximal thickness. The left subdural hematomas smaller seen only along the anterior left frontal lobe and measuring up to 5 mm in maximal thickness. No midline shift or uncal herniation. Basal cisterns remain patent. Unchanged small old lacunar infarct in the l eft lentiform nucleus. No acute infarction. There is mild scattered white matter hypoattenuation cons istent with chronic small vessel ischemic disease. Symmetric prominence of the sulci and ventricles c onsistent with mild age-appropriate diffuse cerebral volume loss. No mass/mass effect. The orbits, pa ranasal sinuses and mastoid air cells are normal. Intracranial calcified cerebral atherosclerosis is noted. No fracture. IMPRESSION: 1. Interval decrease in size of bilateral frontal subdural hematomas but now with increasing density consistent with new acute/subacute hemorrhage. 2. Small old lacunar infarct in the left basal ganglia and mild scattered white matter hypoattenuatio n consistent with chronic small vessel ischemic disease. Reviewed, dictated and finalized at location A. IMPRESSION: 1. Interval decrease in size of bilateral frontal subdural hematomas but now wi th increasing density consistent with new acute/subacute hemorrhage. 2. Small old lacunar infarct in the left basal ganglia and mild scattered white matter hypoattenuation consistent with chronic small vessel ischemic disease.
--- NOTE | ~2021-01-20 | XR_ITS ---
EXAMINATION: XR chest PICC line INDICATION: PICC insertion TECHNIQUE: Portable AP chest at 1250 hours COMPARISON: 12/10/2020 FINDINGS: A right upper extremity PICC has been inserted which ends with its tip in the midsuperior v dc cava. The lungs are free of acute opacities. There is no pleural effusion or pneumothorax. There is chronic eventration of the right hemidiaphragm. The cardiomediastinal silhouette is normal. IMPRESSION: 1. Right upper extremity PICC ending with its tip in the midsuperior vena cava. Reviewed, dictated and finalized at location A.
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
--- NOTE | ~2021-01-20 | US_ITS ---
EXAMINATION: US venous doppler [facility] DATE: 01/21/2021 08:50 INDICATION: Left lower limb edema TECHNIQUE: Morin scale images without and with compression and Doppler images of the left lower extrem ity veins were obtained. COMPARISON: None FINDINGS: The left common femoral vein, profunda femoral vein, femoral vein, popliteal vein, peroneal trunk, posterior tibial veins, and greater saphenous vein are patent. IMPRESSION: 1. Patent left lower extremity veins. No evidence of deep venous thrombosis. Reviewed, dictated and finalized at location A.
--- NOTE | 2021-01-20 10:07 | ADMGEN ---
This patient, Nikita Cordova, was admitted to 3 [facility] Surg Room 309-01. Patient oriented to hospital policies and general routines including ID bracelet, bed and alarms, visiting hours, pain management, procedures, bathroom and other care routines, personal items, smoking policy, room service/diet, and visiting hours. Information on how to activate the Rapid Response Team has been discussed. Patient are encouraged to report perceived risks to care and to ask questions if they do not understand what they are told or what they should do.
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
[2021-01-20 12:22] LABS: Basophils Absolute Auto 0.1 K/mm3 (0.0-0.1); Basophils Percent Auto 0.7 % (0.2-1.2); Eosinophils Absolute Auto 0.3 K/mm3 (0-0.3); Eosinophils Percent Auto 2.1 % (0-4.4); Hematocrit 35.9 % (42.0-52.0); Hemoglobin 12.1 g/dL (14.0-18.0); Immature Granulocyte Absolute 0.06 K/mm3 (0.00-0.031); Immature Granulocyte Percent A 0.4 % (0-0.5); Lymphocytes Absolute Auto 3.46 K/mm3 (0.9-3.2); Lymphocytes Percent Auto 23.2 % (18.3-44.2); Mean Corpuscular HGB Conc 33.7 g/dl (32-36); Mean Corpuscular Hemoglobin 31.6 pg (26-34); Mean Corpuscular Volume 93.7 fl (80-100); Mean Platelet Volume 10.7 fl (7.4-10.4); Monocytes Absolute Auto 1.4 K/mm3 (0.1-0.6); Monocytes Percent Auto 9.3 % (2.6-8.5); Neutrophils Absolute Auto 9.6 K/mm3 (1.3-6.7); Neutrophils Percent Auto 64.3 % (45.5-73.1); Platelet Count Result 299 k/mm3 (150-375); Red Blood Count 3.83 M/mm3 (4.6-6.20); Red Cell Distribution Width 12.9 % (11.5-14.5); White Blood Count 14.9 K/mm3 (4.5-10.0)
[2021-01-20 12:41] LABS: Alanine Aminotransferase 20 U/L (4-50); Albumin Level 4.5 g/dL (3.5-5.1); Alkaline Phosphatase 112 U/L (38-126); Anion Gap 9 mmol/L (8-16); Aspartate Amino Transferase 23 U/L (17-59); Bilirubin,Total 0.6 mg/dL (0.2-1.3); Blood Urea Nitrogen 22 mg/dL (9-20); CRP 3.5 mg/dL (<1.0); Calcium 9.2 mg/dL (8.4-10.2); Carbon Dioxide 28 mmol/L (22-30); Chloride 104 mmol/L (98-107); Estimated CRCL calculation 67 ml/min; Estimated Glomerular Filt Rate > 60; Glucose 62 mg/dL (65-110); Potassium 3.2 mmol/L (3.4-5.0); Sodium 141 mmol/L (137-145)
[2021-01-20 13:46] LABS: Folic Acid 14.7 ng/mL (2.76->20); Vitamin B12 > 1000.0 pg/mL (239-931)
[2021-01-20 13:51] LABS: Glucose Point of Care 77 mg/dl (65-105)
[2021-01-20] MEDS: LACTATED RINGERS 1,000 ML 30 ML IV CONT (14:30)
[2021-01-20 14:47] LABS: Glucose Point of Care 112 mg/dl (65-105)
--- NOTE | 2021-01-20 14:58 | WPDINFPN2 ---
Progress Note: A&P Assessment and Plan (1) Diabetic infection of left foot: Onset Date: Unknown Code(s): E11.628 - Type 2 diabetes mellitus with other skin complications; L08.9 - Local infection of the skin and subcutaneous tissue, unspecified Status: Acute Assessment and Plan: DFI, relpase REC Imipenem #1, for wound exploration today Subjective Date/time seen: 01/20/21 14:58 Objective Data Vital Signs Vital Signs: Vital Signs - 24 hr 01/20/21 10:41 01/20/21 14:30 Temperature 37.0 C Pulse Rate 83 Blood Pressure 161/71 H Pulse Oximetry 97 100 Intake/Output Intake/Output: Intake & Output 01/17/21 01/18/21 01/19/21 01/20/21 23:59 23:59 23:59 23:59 Intake Total 100 Balance 100 Meds/Results Medications: Active Medications Generic Name Dose Route Start Last Admin Trade Name Freq PRN Reason Stop Dose Admin Acetaminophen 650 mg 01/20/21 11:26 Acetaminophen 325 Mg Tablet PO Q4H PRN Mild Pain (1-3) or Fever Dextrose 12.5 gm 01/20/21 11:26 Dextrose 50% 25 Gm/50 Ml Syringe IV PUSH PRN PRN Hypoglycemia Protocol Docosanol 1 applic 01/20/21 12:00 Docosanol 10% Cream 2 Gm TOPICAL 5 TIMES DAILY [facility] Enoxaparin Sodium 40 mg 01/21/21 09:00 Enoxaparin 40 Mg/0.4 Ml Syringe SUB-Q DAILY [facility] Glucagon 1 mg 01/20/21 11:26 Glucagon For Inj 1 Mg Vial IM PRN PRN Hypoglycemia Protocol Glucose 15 gm 01/20/21 11:26 Glucose Oral Gel 15 Gm Of Glucse In 37.5 Gm Tube PO PRN PRN Hypoglycemia Protocol Dextrose 1,000 mls @ 100 mls/hr 01/20/21 11:26 Dextrose 5% 1,000 Ml IVPB PRN PRN Hypoglycemia Protocol Imipenem/Cilastatin Sodium 500 mg in 100 mls @ 300 mls/hr 01/20/21 18:00 Primaxin 500 Mg/D5w 100 Ml IVPB Q6H [facility] Vancomycin HCl 1,750 mg in 500 mls @ 250 mls/hr 01/21/21 02:00 Vancomycin 1,750 Mg/D5w 500 Ml IVPB Q12H [facility] Insulin Aspart 4 - 8 units 01/20/21 12:00 01/20/21 13:50 Insulin Aspart (*Bkc) 100 Units/Ml SUB-Q Not Given TIDWM [facility] Protocol Radiology Results: ITS Impressions Head CT 01/20/21 12:29 IMPRESSION: 1. Interval decrease in size of bilateral frontal subdural hematomas but now with increasing density consistent with new acute/subacute hemorrhage. 2. Small old lacunar infarct in the left basal ganglia and mild scattered white matter hypoattenuation consistent with chronic small vessel ischemic disease. Foot X-Ray 01/20/21 12:37 IMPRESSION: 1. Large ulceration at the medial aspect of the left hindfoot. No findings to suggest osteomyelitis. Labs Labs: Laboratory Results - last 24 hr 01/20/21 01/20/21 01/20/21 12:04 12:04 12:06 WBC 14.9 H RBC 3.83 L Hgb 12.1 L Hct 35.9 L MCV 93.7 MCH 31.6 MCHC 33.7 RDW 12.9 Plt Count 299 MPV 10.7 H Immature Gran % (Auto) 0.4 Neut % (Auto) 64.3 Lymph % (Auto) 23.2 Nance % (Auto) 9.3 H Eos % (Auto) 2.1 Baso % (Auto) 0.7 Lymph # (Auto) 3.46 H Nance # (Auto) 1.4 H Eos # (Auto) 0.3 Baso # (Auto) 0.1 Abs Immat Gran (auto) 0.06 H Absolute Neuts (auto) 9.6 H Absolute Nucleated RBC 0.0 Nucleated RBC % 0.0 Sodium 141 Potassium 3.2 L Chloride 104 Carbon Dioxide 28 Anion Gap 9 BUN 22 H Creatinine 1.10 Estim Creat Clear Calc 67 Estimated GFR > 60 Glucose 62 L POC Capillary Glucose Calcium 9.2 Total Bilirubin 0.6 AST 23 ALT 20 Alkaline Phosphatase 112 C-Reactive Protein 3.5 H Total Protein 9.0 H Albumin 4.5 Vitamin B12 > 1000.0 H Folate 14.7 TSH (Reflex) 3.090 01/20/21 01/20/21 13:47 14:44 WBC RBC Hgb Hct MCV MCH MCHC RDW Plt Count MPV Immature Gran % (Auto) Neut % (Auto) Lymph % (Auto) Nance % (Auto) Eos % (Auto) Baso % (Auto) Lymph # (Auto) Nance # (Auto) Eos # (A
--- NOTE | 2021-01-20 15:14 | WPDHPUPDATE1 ---
History and Physical Update Update Date/Time: 01/20/21 15:14 History and Physical has been reviewed, including an updated exam of the patient. There are NO changes in the patient's condition. Risks, benefits, and alternatives have been discussed and questions answered. Patient agrees to proceed with procedure.
--- NOTE | 2021-01-20 15:16 | WPDANESEPPF ---
Anes - Initial Pre Proc Eval Procedure: Operation Date: 01/20/21 15:30 Proposed Procedures p Incision and Debridement Left Diabetic Foot Ulcer, Possible Wound Vac Placement - Ayan Parker MD Date/Time: 01/20/21 15:16 Surgeon: Regino Pressley MD Pre Op Diagnosis: Lt Diabetic Foot Ulcer Patient Data Age: 80 Gender: M Height: 1.88 m Weight: 116.5 kg Last Vital Signs Temp 37.0 C 01/20/21 14:30 Pulse 83 01/20/21 14:30 BP 161/71 H 01/20/21 14:30 Pulse Ox 100 01/20/21 14:30 Allergies Allergy/AdvReac Type Severity Reaction Status Date / Time No Known Allergies Allergy Verified 12/09/20 16:17 Home Medications Medication Instructions Recorded Confirmed Type clopidogrel 75 mg PO DAILY 09/30/20 01/06/21 History donepezil 10 mg PO HS 09/30/20 01/06/21 History rosuvastatin 20 mg PO DAILY 09/30/20 01/06/21 History Tresiba FlexTouch U-200 40 unit SUBCUT QPM 12/09/20 01/06/21 History carvedilol 12.5 mg PO DAILY 12/09/20 01/06/21 History insulin lispro 30 unit SUBCUT AC 12/09/20 01/06/21 History amlodipine [Norvasc] 5 mg PO QAM #30 tablet 12/16/20 01/06/21 Rx hydrocodone-acetaminophen 1 tablet PO Q4H PRN #12 tablet 12/16/20 01/06/21 Rx imipenem-cilastatin 500 mg IV Q8H #21 ea 12/16/20 01/06/21 Rx levetiracetam [Keppra] 500 mg PO BID #60 tablet 12/16/20 01/06/21 Rx polyethylene glycol 3350 [Miralax] 17 g PO QAM #30 ea 12/16/20 Rx tolnaftate 1 applic TOPICAL PRN PRN #45 g 12/16/20 Rx Laboratory Tests 01/20/21 01/20/21 01/20/21 12:04 12:04 12:06 WBC 14.9 K/mm3 H K/mm3 (4.5-10.0) RBC 3.83 M/mm3 L M/mm3 (4.6-6.20) Hgb 12.1 g/dL L g/dL (14.0-18.0) Hct 35.9 % L % (42.0-52.0) MCV 93.7 fl fl (80-100) MCH 31.6 pg pg (26-34) MCHC 33.7 g/dl g/dl (32-36) RDW 12.9 % % (11.5-14.5) Plt Count 299 k/mm3 k/mm3 (150-375) MPV 10.7 fl H fl (7.4-10.4) Immature Gran % (Auto) 0.4 % % (0-0.5) Neut % (Auto) 64.3 % % (45.5-73.1) Lymph % (Auto) 23.2 % % (18.3-44.2) Alfalfa % (Auto) 9.3 % H % (2.6-8.5) Eos % (Auto) 2.1 % % (0-4.4) Baso % (Auto) 0.7 % % (0.2-1.2) Lymph # (Auto) 3.46 K/mm3 H K/mm3 (0.9-3.2) Alfalfa # (Auto) 1.4 K/mm3 H K/mm3 (0.1-0.6) Eos # (Auto) 0.3 K/mm3 K/mm3 (0-0.3) Baso # (Auto) 0.1 K/mm3 K/mm3 (0.0-0.1) Abs Immat Gran (auto) 0.06 K/mm3 H K/mm3 (0.00-0.031) Absolute Neuts (auto) 9.6 K/mm3 H K/mm3 (1.3-6.7) Absolute Nucleated RBC 0.0 K/mm3 K/mm3 (0.0-0.012) Nucleated RBC % 0.0 % % (0.0-0.2) Sodium 141 mmol/L mmol/L (137-145) Potassium 3.2 mmol/L L mmol/L (3.4-5.0) Chloride 104 mmol/L mmol/L (98-107) Carbon Dioxide 28 mmol/L mmol/L (22-30) Anion Gap 9 mmol/L mmol/L (8-16) BUN 22 mg/dL H mg/dL (9-20) Creatinine 1.10 mg/dL mg/dL (0.7-1.3) Estim Creat Clear Calc 67 ml/min ml/min Estimated GFR > 60 (59 - ) Glucose 62 mg/dL L mg/dL (65-110) POC Capillary Glucose Calcium 9.2 mg/dL mg/dL (8.4-10.2) Total Bilirubin 0.6 mg/dL mg/dL (0.2-1.3) AST 23 U/L U/L (17-59) ALT 20 U/L U/L (4-50) Alkaline Phosphatase 112 U/L U/L (38-126) C-Reactive Protein 3.5 mg/dL H mg/dL (<1.0) Total Protein 9.0 g/dL H g/dL (6.3-8.2) Albumin 4.5 g/dL g/dL (3.5-5.1) Vitamin B12 > 1000.0 pg/mL H pg/mL (239-931) Folate 14.7 ng/mL ng/mL (2.76->20) TSH (Reflex) 3.090 uIU/mL uIU/mL (0.465-4.68) 01/20/21 01/20/21 13:47 14:44 WBC RBC Hgb Hct MCV MCH MCHC RDW Plt Count MPV Immature Gran % (Auto) [place]
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
[2021-01-20 17:10] LABS: Glucose Point of Care 173 mg/dl (65-105)
[2021-01-20] MEDS: DOCOSANOL 10% CREAM 2 GM 1 APPLIC TOPICAL ×3 (18:08→21:22)
[2021-01-20] MEDS: KCL 20 MEQ/D5/0.45% SOD CHL 1,000 ML 80 ML IV CONT (19:21)
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
[2021-01-20] MEDS: DONEPEZIL HCL 10 MG TABLET PO (21:20)
[2021-01-20] MEDS: FAMOTIDINE 20 MG TABLET PO (21:20)
[2021-01-20] MEDS: levETIRAcetam 500 MG TABLET PO (21:23)
[2021-01-20] MEDS: INSULIN GLARGINE (*BKC) 100 UNITS/ML 20 UNITS SUB-Q (21:28)
[2021-01-20 23:32] LABS: Glucose Point of Care 192 mg/dl (65-105)
[2021-01-21 03:14] VITALS: BP 181/78; PULSE 97; RESP 18; TEMP 37.7; O2SAT 98
[2021-01-21 06:45] LABS: Basophils Absolute Auto 0.1 K/mm3 (0.0-0.1); Basophils Percent Auto 0.6 % (0.2-1.2); Eosinophils Percent Auto 0.3 % (0-4.4); Hematocrit 32.5 % (42.0-52.0); Hemoglobin 11.1 g/dL (14.0-18.0); Immature Granulocyte Absolute 0.06 K/mm3 (0.00-0.031); Immature Granulocyte Percent A 0.5 % (0-0.5); Lymphocytes Absolute Auto 1.09 K/mm3 (0.9-3.2); Lymphocytes Percent Auto 9.6 % (18.3-44.2); Mean Corpuscular HGB Conc 34.2 g/dl (32-36); Mean Corpuscular Hemoglobin 31.9 pg (26-34); Mean Corpuscular Volume 93.4 fl (80-100); Monocytes Absolute Auto 1.1 K/mm3 (0.1-0.6); Monocytes Percent Auto 9.9 % (2.6-8.5); Neutrophils Absolute Auto 8.9 K/mm3 (1.3-6.7); Neutrophils Percent Auto 79.1 % (45.5-73.1); Platelet Count Result 206 k/mm3 (150-375); Red Blood Count 3.48 M/mm3 (4.6-6.20); Red Cell Distribution Width 12.7 % (11.5-14.5); White Blood Count 11.3 K/mm3 (4.5-10.0)
[2021-01-21 06:53] LABS: Anion Gap 10 mmol/L (8-16); Blood Urea Nitrogen 16 mg/dL (9-20); Calcium 8.5 mg/dL (8.4-10.2); Carbon Dioxide 24 mmol/L (22-30); Chloride 101 mmol/L (98-107); Estimated CRCL calculation 81 ml/min; Estimated Glomerular Filt Rate > 60; Glucose 270 mg/dL (65-110); Potassium 3.9 mmol/L (3.4-5.0); Sodium 135 mmol/L (137-145)
[2021-01-21 08:00] VITALS: PULSE 88; RESP 18; O2SAT 98
[2021-01-21 08:11] LABS: Glucose Point of Care 282 mg/dl (65-105)
[2021-01-21] MEDS: INSULIN ASPART (*BKC) 100 UNITS/ML SUB-Q ×2 (09:16→13:08)
[2021-01-21] MEDS: INSULIN ASPART (*BKC) 100 UNITS/ML 8 UNITS SUB-Q ×2 (09:16→13:08)
[2021-01-21 09:17] VITALS: PULSE 88
[2021-01-21] MEDS: CHOLECALCIFEROL 1,000 UNITS TABLET 5000 UNITS PO (09:17)
[2021-01-21] MEDS: carvediloL 12.5 MG TABLET PO (09:17)
[2021-01-21] MEDS: levETIRAcetam 500 MG TABLET PO ×2 (09:18→22:14)
[2021-01-21] MEDS: DOCUSATE SODIUM 100 MG CAPSULE PO ×2 (09:18→17:55)
[2021-01-21] MEDS: ROSUVASTATIN 10 MG TABLET 20 MG PO (09:18)
[2021-01-21] MEDS: FAMOTIDINE 20 MG TABLET PO ×2 (09:18→22:14)
--- NOTE | 2021-01-21 09:18 | PM.PNORT ---
Progress Note: A&P Assessment and Plan (1) Diabetic infection of left foot: Onset Date: Unknown Code(s): E11.628 - Type 2 diabetes mellitus with other skin complications; L08.9 - Local infection of the skin and subcutaneous tissue, unspecified Status: Acute Assessment and Plan: Postoperative day 1 left foot debridement. Closure of wound at time of surgery. Incisional wound VAC in place. IV antibiotics. Nonweightbearing. Plan wound VAC dressing change on Saturday. Subjective Subjective Date/Time Seen: 01/21/21 09:18 Post Op day: 1 Principal diagnosis: Right diabetic foot ulcer Interval history: Patient awake and alert. Operative findings reviewed with patient. No pain at this time. Exam Const: General: cooperative, no acute distress, well developed and poor hygiene Nutritional Appearance: average body habitus Orientation/consciousness: oriented to person and oriented to place Limitations: no limitations Eyes: General: appearance normal, both eyes and all related structures Neck: Neck: supple and no JVD Resp: Effort & Inspection: normal respiratory effort Cardio: Rate: regular rate Rhythm: regular rhythm GI: Inspection: non-distended GI Palp: Yes Soft to palpation and No Tenderness to palpation present (GI) Neuro: Speech: normal speech Extrem: Left lower extremity: ankle ( redness, warmth and swelling to the medial aspect of the left ankle) and foot Details: abnormal to inspection (Previous 5th ray amputation. Wound VAC dressing in place), vascular exam (unable to palpate pedal pulses) Details: abnormal capillary refill ( sluggish) Location: of all toes; not of the 5th digit; dorsalis pedis pulse absent and posterior tivial pulse absent and motor-sensory exam ( insensate to mid jay) light-touch abnormal in all toes Other: Wound VAC dressing in place. Sanguinous drainage, minimal in canister. Psych: Mental Status: mental status grossly normal Affect: normal affect Objective Data Vital Signs Vital Signs: Vital Signs - 24 hr 01/20/21 10:41 01/20/21 14:30 01/20/21 16:56 Temperature 98.6 F 97.7 F Pulse Rate 83 61 Respiratory Rate 12 Blood Pressure 161/71 H 121/72 Pulse Oximetry 97 100 100 01/20/21 17:10 01/20/21 17:25 01/20/21 17:29 Temperature 97.0 F L Pulse Rate 71 73 74 Respiratory Rate 21 H 16 20 Blood Pressure 141/77 H 154/77 H 154/77 H Pulse Oximetry 100 99 99 01/20/21 19:14 01/20/21 23:14 01/21/21 03:14 Temperature 97.8 F 99.9 F H 99.9 F H Pulse Rate 81 107 H 97 Respiratory Rate 18 20 18 Blood Pressure 166/83 H 194/94 H 181/78 H Pulse Oximetry 99 99 98 Intake/Output Intake/Output: Intake & Output 01/18/21 01/19/21 01/20/21 01/21/21 23:59 23:59 23:59 23:59 Intake Total 1000 850 Output Total 1000 Balance 1000 -150 Meds/Results Medications: Active Medications Generic Name Dose Route Start Last Admin Trade Name Freq PRN Reason Stop Dose Admin Acetaminophen 650 mg 01/20/21 11:26 Acetaminophen 325 Mg Tablet PO Q4H PRN Mild Pain (1-3) or Fever Hydrocodone Bitart/Acetaminophen 1 tab 01/20/21 17:29 Hydrocodone/Acetaminophen (*Crx) 5-325 Mg Tablet PO Q3H PRN Pain Rated 4-6 Hydrocodone Bitart/Acetaminophen 1 tab 01/20/21 18:15 Hydrocodone/Acetaminophen (*Crx) 5-325 Mg Tablet PO Q4H PRN Pain Rated 4-6 Amlodipine Besylate 5 mg 01/21/21 09:00 Amlodipine Besylate 5 Mg Tablet PO QAM WARNER Carvedilol 12.5 mg 01/21/21 09:00 Carvedilol 12.5 Mg Tablet PO DAILY WARNER Dextrose 12.5 gm 01/20/21 11:26 Dextrose 50% 25 Gm/50 Ml Syringe IV PUSH PRN PRN Hypoglycemia Protocol Docosanol 1 applic 01/20/21 12:00 01/20/21 21:22 Docosanol 10% Cream 2 Gm TOPICAL 1 applic 5 TIMES DAILY WARNER Administration Docusate Sodium 100 mg 01/21/21 09:00 Docusate Sodium 100 Mg Capsule PO BID WARNER Donepezil HCl 10 mg 01/20/21 21:00 01/20/21 21:20 Donep
[2021-01-21] MEDS: polyethylene glycoL 3350 17 GM POWD.PACK PO (09:19)
[2021-01-21] MEDS: amLODIPine BESYLATE 5 MG TABLET PO (09:19)
[2021-01-21] MEDS: DOCOSANOL 10% CREAM 2 GM 1 APPLIC TOPICAL ×4 (09:19→22:14)
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
[2021-01-21 12:14] LABS: Glucose Point of Care 282 mg/dl (65-105)
[2021-01-21 14:00] VITALS: BP 136/69; PULSE 73; RESP 16; TEMP 37.1; O2SAT 99
[2021-01-21 17:47] LABS: Glucose Point of Care 113 mg/dl (65-105)
[2021-01-21 19:14] VITALS: BP 129/55; PULSE 74; RESP 18; TEMP 37.1; O2SAT 99
[2021-01-21 21:50] VITALS: O2SAT 96
[2021-01-21] MEDS: DONEPEZIL HCL 10 MG TABLET PO (22:14)
[2021-01-21] MEDS: KCL 20 MEQ/D5/0.45% SOD CHL 1,000 ML 80 ML IV CONT (22:14)
[2021-01-21] MEDS: INSULIN GLARGINE (*BKC) 100 UNITS/ML 20 UNITS SUB-Q (22:15)
[2021-01-21 23:21] LABS: Glucose Point of Care 144 mg/dl (65-105)
[2021-01-22 05:54] VITALS: BP 140/55; PULSE 71; RESP 18; TEMP 36.7; O2SAT 98
[2021-01-22 06:40] LABS: Basophils Absolute Auto 0.1 K/mm3 (0.0-0.1); Basophils Percent Auto 0.8 % (0.2-1.2); Eosinophils Absolute Auto 0.2 K/mm3 (0-0.3); Eosinophils Percent Auto 2.3 % (0-4.4); Hematocrit 32.7 % (42.0-52.0); Immature Granulocyte Absolute 0.04 K/mm3 (0.00-0.031); Immature Granulocyte Percent A 0.4 % (0-0.5); Lymphocytes Absolute Auto 1.91 K/mm3 (0.9-3.2); Lymphocytes Percent Auto 18.3 % (18.3-44.2); Mean Corpuscular HGB Conc 33.6 g/dl (32-36); Mean Corpuscular Hemoglobin 31.7 pg (26-34); Mean Corpuscular Volume 94.2 fl (80-100); Neutrophils Absolute Auto 7.1 K/mm3 (1.3-6.7); Neutrophils Percent Auto 68.2 % (45.5-73.1); Platelet Count Result 219 k/mm3 (150-375); Red Blood Count 3.47 M/mm3 (4.6-6.20); Red Cell Distribution Width 12.8 % (11.5-14.5); White Blood Count 10.4 K/mm3 (4.5-10.0)
[2021-01-22 06:54] LABS: Alanine Aminotransferase 16 U/L (4-50); Albumin Level 3.7 g/dL (3.5-5.1); Alkaline Phosphatase 88 U/L (38-126); Anion Gap 10 mmol/L (8-16); Aspartate Amino Transferase 22 U/L (17-59); Bilirubin,Total 0.6 mg/dL (0.2-1.3); Blood Urea Nitrogen 18 mg/dL (9-20); Calcium 8.7 mg/dL (8.4-10.2); Carbon Dioxide 23 mmol/L (22-30); Chloride 104 mmol/L (98-107); Estimated CRCL calculation 73 ml/min; Estimated Glomerular Filt Rate > 60; Glucose 189 mg/dL (65-110); Potassium 3.9 mmol/L (3.4-5.0); Sodium 137 mmol/L (137-145)
[2021-01-22 08:00] VITALS: PULSE 70; RESP 18; O2SAT 98
[2021-01-22 08:27] LABS: Glucose Point of Care 202 mg/dl (65-105)
[2021-01-22] MEDS: INSULIN ASPART (*BKC) 100 UNITS/ML SUB-Q ×2 (09:22→13:12)
[2021-01-22] MEDS: INSULIN ASPART (*BKC) 100 UNITS/ML 8 UNITS SUB-Q ×3 (09:24→17:30)
[2021-01-22] MEDS: DOCUSATE SODIUM 100 MG CAPSULE PO ×2 (09:25→17:29)
[2021-01-22] MEDS: POTASSIUM CHLORIDE 20 MEQ TABLET PO (09:25)
[2021-01-22] MEDS: polyethylene glycoL 3350 17 GM POWD.PACK PO (09:25)
[2021-01-22] MEDS: levETIRAcetam 500 MG TABLET PO ×2 (09:26→20:41)
[2021-01-22] MEDS: FAMOTIDINE 20 MG TABLET PO ×2 (09:26→20:41)
[2021-01-22 09:27] VITALS: PULSE 70
[2021-01-22] MEDS: ROSUVASTATIN 10 MG TABLET 20 MG PO (09:27)
[2021-01-22] MEDS: MAGNESIUM OXIDE 400 MG TABLET PO (09:27)
[2021-01-22] MEDS: amLODIPine BESYLATE 5 MG TABLET PO (09:27)
[2021-01-22] MEDS: carvediloL 12.5 MG TABLET PO (09:27)
--- NOTE | 2021-01-22 10:04 | PM.PNORT ---
Progress Note: A&P Assessment and Plan (1) Diabetic infection of left foot: Onset Date: Unknown Code(s): E11.628 - Type 2 diabetes mellitus with other skin complications; L08.9 - Local infection of the skin and subcutaneous tissue, unspecified Status: Acute Assessment and Plan: POD #2 left foot debridement. Closure of wound at time of surgery. Incisional wound VAC in place. Plan for wound VAC change tomorrow, January 23, 2021 IV antibiotics. Nonweightbearing. indicated for PICC line for long-term IV antibiotics. Subjective Subjective Date/Time Seen: 01/22/21 10:04 Post Op day: 2 Principal diagnosis: Left diabetic foot infection Interval history: postoperative day 2. No new complaints. Up to chair. Tolerating diet. Some confusion, intermittent. Patient attempting to get out of bed. Patient removed IV line. Indicated for PICC line for long-term IV antibiotics. Exam Const: General: cooperative, no acute distress, well developed and poor hygiene Nutritional Appearance: average body habitus Orientation/consciousness: oriented to person and oriented to place Limitations: no limitations Eyes: General: appearance normal, both eyes and all related structures Neck: Neck: supple and no JVD Resp: Effort & Inspection: normal respiratory effort Cardio: Rate: regular rate Rhythm: regular rhythm GI: Inspection: non-distended GI Palp: Yes Soft to palpation and No Tenderness to palpation present (GI) Neuro: Speech: normal speech Extrem: Left lower extremity: ankle ( redness, warmth and swelling to the medial aspect of the left ankle) and foot Details: abnormal to inspection (Previous 5th ray amputation. Wound VAC dressing in place), vascular exam (unable to palpate pedal pulses) Details: abnormal capillary refill ( sluggish) Location: of all toes; not of the 5th digit; dorsalis pedis pulse absent and posterior tivial pulse absent and motor-sensory exam ( insensate to mid jay) light-touch abnormal in all toes Other: Wound VAC dressing in place. Sanguinous drainage, minimal in canister. Psych: Mental Status: mental status grossly normal Affect: normal affect Objective Data Vital Signs Vital Signs: Vital Signs - 24 hr 01/21/21 14:00 01/21/21 19:14 01/21/21 21:50 Temperature 98.7 F 98.7 F Pulse Rate 73 74 Respiratory Rate 16 18 Blood Pressure 136/69 129/55 L Pulse Oximetry 99 99 96 01/22/21 05:54 01/22/21 09:27 Temperature 98.0 F Pulse Rate 71 70 Respiratory Rate 18 Blood Pressure 140/55 L Pulse Oximetry 98 Intake/Output Intake/Output: Intake & Output 01/19/21 01/20/21 01/21/21 01/22/21 23:59 23:59 23:59 23:59 Intake Total 1000 2690 400 Output Total 1000 500 Balance 1000 1690 -100 Meds/Results Medications: Active Medications Generic Name Dose Route Start Last Admin Trade Name Freq PRN Reason Stop Dose Admin Acetaminophen 650 mg 01/20/21 11:26 Acetaminophen 325 Mg Tablet PO Q4H PRN Mild Pain (1-3) or Fever Hydrocodone Bitart/Acetaminophen 1 tab 01/20/21 17:29 Hydrocodone/Acetaminophen (*Crx) 5-325 Mg Tablet PO Q3H PRN Pain Rated 4-6 Hydrocodone Bitart/Acetaminophen 1 tab 01/20/21 18:15 Hydrocodone/Acetaminophen (*Crx) 5-325 Mg Tablet PO Q4H PRN Pain Rated 4-6 Amlodipine Besylate 5 mg 01/21/21 09:00 01/22/21 09:27 Amlodipine Besylate 5 Mg Tablet PO 5 mg QAM WARNER Administration Carvedilol 12.5 mg 01/21/21 09:00 01/22/21 09:27 Carvedilol 12.5 Mg Tablet PO 12.5 mg DAILY WARNER Administration Dextrose 12.5 gm 01/20/21 11:26 Dextrose 50% 25 Gm/50 Ml Syringe IV PUSH PRN PRN Hypoglycemia Protocol Docosanol 1 applic 01/20/21 12:00 01/21/21 22:14 Docosanol 10% Cream 2 Gm TOPICAL 1 applic 5 TIMES DAILY WARNER Administration Docusate Sodium 100 mg 01/21/21 09:00 01/22/21 09:25 Docusate Sodium 100 Mg Capsule PO 100 mg BID WARNER Administration Done
[2021-01-22 12:06] LABS: Glucose Point of Care 212 mg/dl (65-105)
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
[2021-01-22 14:00] VITALS: BP 121/62; PULSE 70; RESP 18; TEMP 36.8; O2SAT 99
[2021-01-22 17:16] LABS: Glucose Point of Care 182 mg/dl (65-105)
[2021-01-22 20:22] VITALS: O2SAT 98
[2021-01-22] MEDS: INSULIN GLARGINE (*BKC) 100 UNITS/ML 20 UNITS SUB-Q (20:41)
[2021-01-22] MEDS: DONEPEZIL HCL 10 MG TABLET PO (20:41)
[2021-01-22] MEDS: DOCOSANOL 10% CREAM 2 GM 1 APPLIC TOPICAL (20:42)
[2021-01-22 21:03] LABS: Glucose Point of Care 202 mg/dl (65-105)
[2021-01-22 21:47] VITALS: BP 151/73; PULSE 76; RESP 18; TEMP 37.8; O2SAT 98
[2021-01-23 00:13] VITALS: TEMP 37.7
[2021-01-23] MEDS: ACETAMINOPHEN 325 MG TABLET 650 MG PO (00:13)
[2021-01-23] MEDS: KCL 20 MEQ/D5/0.45% SOD CHL 1,000 ML 80 ML IV CONT ×2 (00:13→14:08)
[2021-01-23 05:53] VITALS: BP 172/77; PULSE 73; RESP 18; TEMP 36.4; O2SAT 99
[2021-01-23 07:00] LABS: Basophils Absolute Auto 0.1 K/mm3 (0.0-0.1); Basophils Percent Auto 0.8 % (0.2-1.2); Eosinophils Absolute Auto 0.4 K/mm3 (0-0.3); Hematocrit 29.9 % (42.0-52.0); Hemoglobin 10.3 g/dL (14.0-18.0); Immature Granulocyte Absolute 0.03 K/mm3 (0.00-0.031); Immature Granulocyte Percent A 0.3 % (0-0.5); Lymphocytes Absolute Auto 1.66 K/mm3 (0.9-3.2); Lymphocytes Percent Auto 18.4 % (18.3-44.2); Mean Corpuscular HGB Conc 34.4 g/dl (32-36); Mean Corpuscular Hemoglobin 31.1 pg (26-34); Mean Corpuscular Volume 90.3 fl (80-100); Mean Platelet Volume 11.1 fl (7.4-10.4); Monocytes Absolute Auto 0.8 K/mm3 (0.1-0.6); Monocytes Percent Auto 8.9 % (2.6-8.5); Neutrophils Absolute Auto 6.1 K/mm3 (1.3-6.7); Neutrophils Percent Auto 67.6 % (45.5-73.1); Platelet Count Result 201 k/mm3 (150-375); Red Blood Count 3.31 M/mm3 (4.6-6.20); Red Cell Distribution Width 12.6 % (11.5-14.5)
[2021-01-23 08:03] LABS: Glucose Point of Care 259 mg/dl (65-105)
[2021-01-23] MEDS: INSULIN ASPART (*BKC) 100 UNITS/ML SUB-Q ×3 (08:16→17:18)
[2021-01-23] MEDS: CHOLECALCIFEROL 1,000 UNITS TABLET 5000 UNITS PO (08:17)
[2021-01-23] MEDS: INSULIN ASPART (*BKC) 100 UNITS/ML 8 UNITS SUB-Q ×2 (08:17→11:54)
[2021-01-23 08:18] VITALS: PULSE 73
[2021-01-23] MEDS: DOCUSATE SODIUM 100 MG CAPSULE PO ×2 (08:18→17:18)
[2021-01-23] MEDS: amLODIPine BESYLATE 5 MG TABLET PO (08:18)
[2021-01-23] MEDS: carvediloL 12.5 MG TABLET PO (08:18)
[2021-01-23] MEDS: FAMOTIDINE 20 MG TABLET PO ×2 (08:18→20:24)
[2021-01-23] MEDS: levETIRAcetam 500 MG TABLET PO ×2 (08:18→20:25)
[2021-01-23] MEDS: DOCOSANOL 10% CREAM 2 GM 1 APPLIC TOPICAL ×5 (08:18→20:24)
[2021-01-23] MEDS: ROSUVASTATIN 10 MG TABLET 20 MG PO (08:18)
[2021-01-23] MEDS: polyethylene glycoL 3350 17 GM POWD.PACK PO (08:19)
[2021-01-23 08:25] LABS: Anion Gap 5 mmol/L (8-16); Blood Urea Nitrogen 18 mg/dL (9-20); Calcium 8.5 mg/dL (8.4-10.2); Carbon Dioxide 27 mmol/L (22-30); Chloride 103 mmol/L (98-107); Estimated CRCL calculation 81 ml/min; Estimated Glomerular Filt Rate > 60; Glucose 263 mg/dL (65-110); Potassium 4.9 mmol/L (3.4-5.0); Sodium 135 mmol/L (137-145)
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
--- NOTE | 2021-01-23 11:40 | PCNFU ---
Nutrition Follow-Up Complete: Increased protein/kcal needs related to increased demands for healing as evidenced by left foot wound with scheduled debridement today. Goal: Patient to meet estimated nutritional needs. Patient is progressing towards goal. We will continue current goal. Pt current nutrition is DBCC with Glucerna shakes BID. Last recorded weight is 116.5 kg, no new weight to report. Bowel Motility:+BM reported 01/20 Labs Reviewed:Glu 203, NA 135, Hct 29.9.Hgb 10.3 Meds Noted:Vit D, Miralax, Colace, Lovolog,Lantus, Keppra, Norvasc, Coreg. Additional Notes: Nutrition follow up. Patient is currently on a DBBB diet, oral intake 75-100% reported. Glucerna shakes are providing patient with an additional 220 kcals and 10 gms protein. Skin: left foot Wound Vac to be changed today. PICC lined placed yesterday. Agree with diet orders. Monitoring: Follow up in 5 days.
--- NOTE | 2021-01-23 12:14 | WPDINFPN2 ---
Progress Note: A&P Assessment and Plan (1) Diabetic infection of left foot: Onset Date: Unknown Code(s): E11.628 - Type 2 diabetes mellitus with other skin complications; L08.9 - Local infection of the skin and subcutaneous tissue, unspecified Status: Acute Assessment and Plan: DFI with tenosynovitis, recurrent. No new cultures collected. Operative findings noted. REC Imipenem #4, stop and place on oral therapy for isolated and potential pathogens -- see orders. Use prolonged course of therapy due to compromised soft tissue at the site of infection. Ok discharge planning, sign off, thanks Subjective Date/time seen: 01/23/21 12:14 Interval history: pain under control Exam Narrative: afebrile Const: General: no acute distress Skin: General skin exam: normal color and no rashes or lesions noted Extrem: Other: foot dressed and leg in brace. Dressing dry and intact Objective Data Vital Signs Vital Signs: Vital Signs - 24 hr 01/22/21 14:00 01/22/21 20:22 01/22/21 21:47 Temperature 36.8 C 37.8 C H Pulse Rate 70 76 Respiratory Rate 18 18 Blood Pressure 121/62 151/73 H Pulse Oximetry 99 98 98 01/23/21 00:13 01/23/21 05:53 01/23/21 08:18 Temperature 37.7 C H 36.4 C L Pulse Rate 73 73 Respiratory Rate 18 Blood Pressure 172/77 H Pulse Oximetry 99 Intake/Output Intake/Output: Intake & Output 01/20/21 01/21/21 01/22/21 01/23/21 23:59 23:59 23:59 23:59 Intake Total 1000 2690 3220 740 Output Total 1000 1000 600 Balance 1000 1690 2220 140 Meds/Results Medications: Active Medications Generic Name Dose Route Start Last Admin Trade Name Freq PRN Reason Stop Dose Admin Acetaminophen 650 mg 01/20/21 11:26 01/23/21 00:13 Acetaminophen 325 Mg Tablet PO 650 mg Q4H PRN Administration Mild Pain (1-3) or Fever Hydrocodone Bitart/Acetaminophen 1 tab 01/20/21 17:29 Hydrocodone/Acetaminophen (*Crx) 5-325 Mg Tablet PO Q3H PRN Pain Rated 4-6 Hydrocodone Bitart/Acetaminophen 1 tab 01/20/21 18:15 Hydrocodone/Acetaminophen (*Crx) 5-325 Mg Tablet PO Q4H PRN Pain Rated 4-6 Amlodipine Besylate 5 mg 01/21/21 09:00 01/23/21 08:18 Amlodipine Besylate 5 Mg Tablet PO 5 mg QAM WARNER Administration Carvedilol 12.5 mg 01/21/21 09:00 01/23/21 08:18 Carvedilol 12.5 Mg Tablet PO 12.5 mg DAILY WARNER Administration Dextrose 12.5 gm 01/20/21 11:26 Dextrose 50% 25 Gm/50 Ml Syringe IV PUSH PRN PRN Hypoglycemia Protocol Docosanol 1 applic 01/20/21 12:00 01/23/21 11:51 Docosanol 10% Cream 2 Gm TOPICAL 1 applic 5 TIMES DAILY WARNER Administration Docusate Sodium 100 mg 01/21/21 09:00 01/23/21 08:18 Docusate Sodium 100 Mg Capsule PO 100 mg BID WARNER Administration Donepezil HCl 10 mg 01/20/21 21:00 01/22/21 20:41 Donepezil Hcl 10 Mg Tablet PO 10 mg HS WARNER Administration Famotidine 20 mg 01/20/21 21:00 01/23/21 08:18 Famotidine 20 Mg Tablet PO 20 mg Q12HR WARNER Administration Glucagon 1 mg 01/20/21 11:26 Glucagon For Inj 1 Mg Vial IM PRN PRN Hypoglycemia Protocol Glucose 15 gm 01/20/21 11:26 Glucose Oral Gel 15 Gm Of Glucse In 37.5 Gm Tube PO PRN PRN Hypoglycemia Protocol Dextrose 1,000 mls @ 100 mls/hr 01/20/21 11:26 Dextrose 5% 1,000 Ml IVPB PRN PRN Hypoglycemia Protocol Imipenem/Cilastatin Sodium 500 mg in 100 mls @ 300 mls/hr 01/20/21 18:00 01/23/21 11:50 Primaxin 500 Mg/D5w 100 Ml IVPB 300 mls/hr Q6H WARNER Administration Potassium Chloride/Dextrose/Sod Cl 1,000 mls @ 80 mls/hr 01/20/21 17:29 01/23/21 00:13 Kcl 20 Meq/D5/0.45% Sod Chl IV CONT 80 mls/hr .[id number] WARNER Administration Insulin Aspart 4 - 8 units 01/20/21 12:00 01/23/21 11:54 Insulin Aspart (*Bkc) 100 Units/Ml SUB-Q 6 units TIDWM WARNER Administration Protocol Insulin Aspart 8 units 01/21/21 08:00 01/23/21 1
[2021-01-23 12:16] LABS: Glucose Point of Care 341 mg/dl (65-105)
--- NOTE | 2021-01-23 13:33 | PM.PNORT ---
Progress Note: A&P Assessment and Plan (1) Diabetic infection of left foot: Onset Date: Unknown Code(s): E11.628 - Type 2 diabetes mellitus with other skin complications; L08.9 - Local infection of the skin and subcutaneous tissue, unspecified Status: Acute Assessment and Plan: POD #3 left foot debridement. Closure of wound at time of surgery. Incisional wound VAC in place. Wound VAC change today. Incision intact. Mild skin edge maceration. Appreciate infectious disease. Nonweightbearing. Subjective Subjective Date/Time Seen: 01/23/21 13:33 Post Op day: 3 Exam Const: General: cooperative, no acute distress, well developed and poor hygiene Nutritional Appearance: average body habitus Orientation/consciousness: oriented to person and oriented to place Limitations: no limitations Eyes: General: appearance normal, both eyes and all related structures Neck: Neck: supple and no JVD Resp: Effort & Inspection: normal respiratory effort Cardio: Rate: regular rate Rhythm: regular rhythm GI: Inspection: non-distended GI Palp: Yes Soft to palpation and No Tenderness to palpation present (GI) Neuro: Speech: normal speech Extrem: Left lower extremity: ankle ( redness, warmth and swelling to the medial aspect of the left ankle) and foot Details: abnormal to inspection (Previous 5th ray amputation. Wound VAC dressing in place), vascular exam (unable to palpate pedal pulses) Details: abnormal capillary refill ( sluggish) Location: of all toes; not of the 5th digit; dorsalis pedis pulse absent and posterior tivial pulse absent and motor-sensory exam ( insensate to mid jay) light-touch abnormal in all toes Other: Wound VAC dressing in place. Sanguinous drainage, minimal in canister. Psych: Mental Status: mental status grossly normal Affect: normal affect Objective Data Vital Signs Vital Signs: Vital Signs - 24 hr 01/22/21 14:00 01/22/21 20:22 01/22/21 21:47 Temperature 98.3 F 100.0 F H Pulse Rate 70 76 Respiratory Rate 18 18 Blood Pressure 121/62 151/73 H Pulse Oximetry 99 98 98 01/23/21 00:13 01/23/21 05:53 01/23/21 08:18 Temperature 100 F H 97.5 F L Pulse Rate 73 73 Respiratory Rate 18 Blood Pressure 172/77 H Pulse Oximetry 99 Intake/Output Intake/Output: Intake & Output 01/20/21 01/21/21 01/22/21 01/23/21 23:59 23:59 23:59 23:59 Intake Total 1000 2690 3220 1200 Output Total 1000 1000 600 Balance 1000 1690 2220 600 Meds/Results Medications: Active Medications Generic Name Dose Route Start Last Admin Trade Name Freq PRN Reason Stop Dose Admin Acetaminophen 650 mg 01/20/21 11:26 01/23/21 00:13 Acetaminophen 325 Mg Tablet PO 650 mg Q4H PRN Administration Mild Pain (1-3) or Fever Hydrocodone Bitart/Acetaminophen 1 tab 01/20/21 17:29 Hydrocodone/Acetaminophen (*Crx) 5-325 Mg Tablet PO Q3H PRN Pain Rated 4-6 Hydrocodone Bitart/Acetaminophen 1 tab 01/20/21 18:15 Hydrocodone/Acetaminophen (*Crx) 5-325 Mg Tablet PO Q4H PRN Pain Rated 4-6 Amlodipine Besylate 5 mg 01/21/21 09:00 01/23/21 08:18 Amlodipine Besylate 5 Mg Tablet PO 5 mg QAM WARNER Administration Amoxicillin/Clavulanate Potassium 1 tablet 01/23/21 14:00 Amoxicillin/Clavulanate K 500-125 Mg Tab PO 02/17/21 13:59 Q8HR WARNER Carvedilol 12.5 mg 01/21/21 09:00 01/23/21 08:18 Carvedilol 12.5 Mg Tablet PO 12.5 mg DAILY WARNER Administration Dextrose 12.5 gm 01/20/21 11:26 Dextrose 50% 25 Gm/50 Ml Syringe IV PUSH PRN PRN Hypoglycemia Protocol Docosanol 1 applic 01/20/21 12:00 01/23/21 11:51 Docosanol 10% Cream 2 Gm TOPICAL 1 applic 5 TIMES DAILY WARNER Administration Docusate Sodium 100 mg 01/21/21 09:00 01/23/21 08:18 Docusate Sodium 100 Mg Capsule PO 100 mg BID WARNER Administration Donepezil HCl 10 mg 01/20/21 21:00 01/22/21 20:41 Donepezil Hcl 10 Mg Tablet PO 10 mg HS WARNER
[2021-01-23] MEDS: AMOXICILLIN/CLAVULANATE K 500-125 MG TAB 1 TABLET PO ×2 (14:04→20:25)
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
[2021-01-23 16:35] LABS: Glucose Point of Care 227 mg/dl (65-105)
[2021-01-23] MEDS: INSULIN ASPART (*BKC) 100 UNITS/ML 15 UNITS SUB-Q (17:19)
[2021-01-23 20:00] VITALS: O2SAT 99
[2021-01-23 20:01] VITALS: PULSE 74; RESP 18; O2SAT 98
[2021-01-23] MEDS: DONEPEZIL HCL 10 MG TABLET PO (20:23)
[2021-01-23] MEDS: DOXYCYCLINE HYCLATE 100 MG TABLET PO (20:25)
[2021-01-23] MEDS: INSULIN GLARGINE (*BKC) 100 UNITS/ML 30 UNITS SUB-Q (20:30)
[2021-01-23 20:42] LABS: Glucose Point of Care 228 mg/dl (65-105)
[2021-01-23 22:00] VITALS: BP 156/80; PULSE 80; RESP 18; TEMP 36.8; O2SAT 99
[2021-01-24] MEDS: KCL 20 MEQ/D5/0.45% SOD CHL 1,000 ML 80 ML IV CONT (01:41)
[2021-01-24 06:00] VITALS: BP 174/86; PULSE 81; RESP 18; TEMP 36.2; O2SAT 99
[2021-01-24 07:50] LABS: Glucose Point of Care 232 mg/dl (65-105)
[2021-01-24 08:03] LABS: Basophils Absolute Auto 0.1 K/mm3 (0.0-0.1); Basophils Percent Auto 0.7 % (0.2-1.2); Eosinophils Absolute Auto 0.3 K/mm3 (0-0.3); Eosinophils Percent Auto 3.5 % (0-4.4); Hematocrit 29.7 % (42.0-52.0); Hemoglobin 10.3 g/dL (14.0-18.0); Immature Granulocyte Absolute 0.03 K/mm3 (0.00-0.031); Immature Granulocyte Percent A 0.3 % (0-0.5); Lymphocytes Absolute Auto 1.64 K/mm3 (0.9-3.2); Mean Corpuscular HGB Conc 34.7 g/dl (32-36); Mean Corpuscular Hemoglobin 31.5 pg (26-34); Mean Corpuscular Volume 90.8 fl (80-100); Mean Platelet Volume 10.9 fl (7.4-10.4); Monocytes Absolute Auto 0.8 K/mm3 (0.1-0.6); Monocytes Percent Auto 8.1 % (2.6-8.5); Neutrophils Absolute Auto 6.8 K/mm3 (1.3-6.7); Neutrophils Percent Auto 70.4 % (45.5-73.1); Platelet Count Result 237 k/mm3 (150-375); Red Blood Count 3.27 M/mm3 (4.6-6.20); Red Cell Distribution Width 12.5 % (11.5-14.5); White Blood Count 9.7 K/mm3 (4.5-10.0)
[2021-01-24] MEDS: INSULIN ASPART (*BKC) 100 UNITS/ML SUB-Q ×2 (08:33→12:05)
[2021-01-24] MEDS: INSULIN ASPART (*BKC) 100 UNITS/ML 15 UNITS SUB-Q ×2 (08:34→12:06)
[2021-01-24] MEDS: DOCOSANOL 10% CREAM 2 GM 1 APPLIC TOPICAL ×2 (08:35→12:07)
[2021-01-24] MEDS: POTASSIUM CHLORIDE 20 MEQ TABLET PO (08:35)
[2021-01-24 08:36] VITALS: PULSE 81
[2021-01-24] MEDS: amLODIPine BESYLATE 5 MG TABLET PO (08:36)
[2021-01-24] MEDS: polyethylene glycoL 3350 17 GM POWD.PACK PO (08:36)
[2021-01-24] MEDS: MAGNESIUM OXIDE 400 MG TABLET PO (08:36)
[2021-01-24] MEDS: AMOXICILLIN/CLAVULANATE K 500-125 MG TAB 1 TABLET PO ×2 (08:36→13:01)
[2021-01-24] MEDS: carvediloL 12.5 MG TABLET PO (08:36)
[2021-01-24] MEDS: levETIRAcetam 500 MG TABLET PO (08:36)
[2021-01-24] MEDS: ROSUVASTATIN 10 MG TABLET 20 MG PO (08:36)
[2021-01-24] MEDS: FAMOTIDINE 20 MG TABLET PO (08:36)
[2021-01-24] MEDS: DOXYCYCLINE HYCLATE 100 MG TABLET PO (08:36)
[2021-01-24 08:37] LABS: Alanine Aminotransferase 23 U/L (4-50); Albumin Level 3.3 g/dL (3.5-5.1); Alkaline Phosphatase 76 U/L (38-126); Anion Gap 7 mmol/L (8-16); Aspartate Amino Transferase 36 U/L (17-59); Bilirubin,Total 0.6 mg/dL (0.2-1.3); Blood Urea Nitrogen 16 mg/dL (9-20); Calcium 8.6 mg/dL (8.4-10.2); Carbon Dioxide 24 mmol/L (22-30); Chloride 104 mmol/L (98-107); Estimated CRCL calculation 81 ml/min; Estimated Glomerular Filt Rate > 60; Glucose 250 mg/dL (65-110); Potassium 5.1 mmol/L (3.4-5.0); Sodium 135 mmol/L (137-145)
[2021-01-24] MEDS: DOCUSATE SODIUM 100 MG CAPSULE PO (08:37)
--- NOTE | 2021-01-24 09:56 | PM.PNORT ---
Progress Note: A&P Assessment and Plan (1) Diabetic infection of left foot: Onset Date: Unknown Code(s): E11.628 - Type 2 diabetes mellitus with other skin complications; L08.9 - Local infection of the skin and subcutaneous tissue, unspecified Status: Acute Assessment and Plan: POD #4 left foot debridement. Closure of wound at time of surgery. Incisional wound VAC in place. Wound VAC changed yesterday. Incision intact at that time. Mild skin edge maceration. Appreciate infectious disease recommendations. Nonweightbearing. Fracture boot in place. Dispo: Home with Home Health. Follow up to be arranged in outpatient wound clinic. Subjective Subjective Date/Time Seen: 01/24/21 09:56 Post Op day: 4 Principal diagnosis: Left DFU debridement Interval history: POD #4: Left DFU debridement Wound VAC in place. Functioning well. No new complaints. Plan for d/c home today. Review of Systems Constitutional: Constitutional: Reports no additional constitutional complaints, Denies excessive sweating, Denies fever(s) and Denies weight gain Eyes: Eyes: Reports no additional eye complaints and Denies change in vision ENT: Reports system reviewed and no additional complaints, except as documented and Reports Normal hearing present Cardiovascular: Cardiovascular: Denies chest pain, Denies diaphoresis, Denies leg ulcers and Denies dyspnea on exertion Respiratory: Respiratory: Reports no additional respiratory complaints, Denies cough and Denies dyspnea on exertion Gastrointestinal: Gastrointestinal: Reports no additional gastrointestinal complaints, Denies abdominal pain, Denies constipation, Denies nausea and Denies vomiting Genitourinary: Genitourinary: Denies hematuria and Denies urinary frequency Musculoskeletal: Musculoskeletal: Reports as per HPI Integumentary/Breasts: Skin/Breast: Reports as per HPI Neurologic: Reports Normal hearing present and Reports other ( Some history of dementia) Endocrine: Endocrine: Reports as per HPI Exam Const: General: cooperative, no acute distress, well developed and poor hygiene Nutritional Appearance: average body habitus Orientation/consciousness: oriented to person and oriented to place Limitations: no limitations Eyes: General: appearance normal, both eyes and all related structures Neck: Neck: supple and no JVD Resp: Effort & Inspection: normal respiratory effort Cardio: Rate: regular rate Rhythm: regular rhythm GI: Inspection: non-distended GI Palp: Yes Soft to palpation and No Tenderness to palpation present (GI) Neuro: Speech: normal speech Extrem: Left lower extremity: ankle ( redness, warmth and swelling to the medial aspect of the left ankle) and foot Details: abnormal to inspection (Previous 5th ray amputation. Wound VAC dressing in place), vascular exam (unable to palpate pedal pulses) Details: abnormal capillary refill ( sluggish) Location: of all toes; not of the 5th digit; dorsalis pedis pulse absent and posterior tivial pulse absent and motor-sensory exam ( insensate to mid jay) light-touch abnormal in all toes Other: Wound VAC dressing in place. Sanguinous drainage, minimal in canister. Psych: Mental Status: mental status grossly normal Affect: normal affect Objective Data Vital Signs Vital Signs: Vital Signs - 24 hr 01/23/21 20:00 01/23/21 20:01 01/23/21 22:00 Temperature 36.8 C Pulse Rate 74 80 Respiratory Rate 18 18 Blood Pressure 156/80 H Pulse Oximetry 99 98 99 01/24/21 06:00 01/24/21 08:36 Temperature 36.2 C L Pulse Rate 81 81 Respiratory Rate 18 Blood Pressure 174/86 H Pulse Oximetry 99 Intake/Output Intake/Output: Intake & Output 01/21/21 01/22/21 01/23/21 01/24/21 23:59 23:59 23:59 23:59 Intake Total 2690 3220 2540 1590 Output Total 1000 1000 2100 1999 Balance 1690 2220 440 -410 Meds/Results Medications: Active Medications Generic Name Dose Route Start Last Admin Trade Nam
[2021-01-24 12:11] LABS: Glucose Point of Care 283 mg/dl (65-105)
[2021-01-24 12:35] LABS: Anion Gap 6 mmol/L (8-16); Blood Urea Nitrogen 17 mg/dL (9-20); Calcium 8.6 mg/dL (8.4-10.2); Carbon Dioxide 27 mmol/L (22-30); Chloride 103 mmol/L (98-107); Estimated CRCL calculation 73 ml/min; Estimated Glomerular Filt Rate > 60; Glucose 294 mg/dL (65-110); Potassium 5.2 mmol/L (3.4-5.0); Sodium 136 mmol/L (137-145)
[2021-01-24] MEDS: FUROSEMIDE INJ 40 MG/4 ML VIAL 20 MG IV PUSH (12:59)
[2021-01-24 14:00] VITALS: BP 120/62; PULSE 72; RESP 20; TEMP 35.9; O2SAT 98
[2021-01-24 15:47] LABS: Anion Gap 7 mmol/L (8-16); Blood Urea Nitrogen 19 mg/dL (9-20); Calcium 8.9 mg/dL (8.4-10.2); Carbon Dioxide 28 mmol/L (22-30); Chloride 104 mmol/L (98-107); Estimated CRCL calculation 53 ml/min; Estimated Glomerular Filt Rate 49; Glucose 139 mg/dL (65-110); Potassium 4.5 mmol/L (3.4-5.0); Sodium 139 mmol/L (137-145)
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
== END 2021-01-24 17:15 | disposition home health service (06) | DRG 622 ==
PROVIDERS: Internal Medicine; Orthopaedic Surgery; Admitting Provider Internal Medicine; PCP Internal Medicine; Visit Provider Family Medicine
PROC: 0KBW0ZZ Excision of Left Foot Muscle, Open Approach (ICD-10-PCS; principal; 2021-01-20 15:30)
DX: E11.69 Type 2 diabetes mellitus with other specified complication (principal); S06.5X9A Traumatic subdural hemorrhage with loss of consciousness of unspecified duration, initial encounter; L97.528 Non-pressure chronic ulcer of other part of left foot with other specified severity; M65.172 Other infective (teno)synovitis, left ankle and foot; E11.621 Type 2 diabetes mellitus with foot ulcer; E11.65 Type 2 diabetes mellitus with hyperglycemia; E11.42 Type 2 diabetes mellitus with diabetic polyneuropathy; E11.319 Type 2 diabetes mellitus with unspecified diabetic retinopathy without macular edema; W19.XXXA Unspecified fall, initial encounter; L98.499 Non-pressure chronic ulcer of skin of other sites with unspecified severity; F03.90 Unspecified dementia, unspecified severity, without behavioral disturbance, psychotic disturbance, mood disturbance, and anxiety; I10 Essential (primary) hypertension; N40.0 Benign prostatic hyperplasia without lower urinary tract symptoms; I25.10 Atherosclerotic heart disease of native coronary artery without angina pectoris; E78.5 Hyperlipidemia, unspecified; E66.9 Obesity, unspecified; Z95.5 Presence of coronary angioplasty implant and graft; I25.2 Old myocardial infarction; Z89.422 Acquired absence of other left toe(s); Z85.828 Personal history of other malignant neoplasm of skin; Z79.4 Long term (current) use of insulin; Z95.1 Presence of aortocoronary bypass graft; Z68.33 Body mass index [BMI] 33.0-33.9, adult
CPT/HCPCS: 36415; 36569; 70450; 73630; 80048; 80053; 82607; 82746; 82948; 84443; 85025; 86140; 87040; 88304; 88309; 88311; 93971; 97116; 97163; 97166; 97530; 97535; 99213; A9270; C1751; G0463; J0743; J1815; J1940; J2704; J3370; J3480; J7120

== ENCOUNTER 2021-04-04 07:27 | Outpatient (RCR) | payer MEDICARE, SELFPAY ==
--- NOTE | 2021-01-06 09:22 | PM.PNORT ---
Progress Note: A&P Assessment and Plan (1) Diabetic infection of left foot: Onset Date: Unknown Code(s): E11.628 - Type 2 diabetes mellitus with other skin complications; L08.9 - Local infection of the skin and subcutaneous tissue, unspecified Status: Acute Assessment and Plan: POD #17: Left Foot Debridement. Wound VAC dressing removed today due to notable maceration on the medial aspect of the midfoot. Improvements in surrounding erythema and swelling noted. Incision remains well approximated aside from area of open wound. sutures removed. Aquacel rope placed into wound bed and dressing applied with dry gauze and Kerlix. Wound clinic nurses present. Daily dressing changes. Antifungal powder to be placed around the wound bed. Patient to continue fracture boot at this time with partial weight-bearing. may wash and change dressing. Follow-up in 2 weeks to re-evaluate whether to restart wound VAC or continue with dressing changes. Subjective Subjective Date/Time Seen: 01/06/21 09:22 Post Op day: 3.5 weeks Principal diagnosis: left diabetic foot ulcer Interval history: 3.5 weeks status post left debridement. Patient at home with wound VAC. Presents to the outpatient wound clinic for postoperative follow-up. No new complaints. Exam Const: General: cooperative, no acute distress, well developed and poor hygiene Nutritional Appearance: average body habitus Orientation/consciousness: oriented to person and oriented to place Limitations: no limitations Eyes: General: appearance normal, both eyes and all related structures Neck: Neck: supple and no JVD Resp: Effort & Inspection: normal respiratory effort Cardio: Rate: regular rate Rhythm: regular rhythm GI: Inspection: non-distended GI Palp: Yes Soft to palpation and No Tenderness to palpation present (GI) Neuro: Speech: normal speech Extrem: Left lower extremity: ankle ( redness, warmth and swelling to the medial aspect of the left ankle) and foot Details: 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ulses) Details: abnormal capillary refill ( sluggish) Location: of all toes; not of the 5th digit; dorsalis pedis pulse absent and posterior tivial pulse absent and motor-sensory exam ( insensate to mid jay) two point discrimination normal and light-touch abnormal Other: Redness, warmth and swelling to the medial aspect of the left ankle with continued improvement. Wound VAC removed today as there was notable maceration on the medial aspect of the midfoot. Wound VAC cord had been taped to the lateral aspect of the leg and showing indentation. No open wounds. No evidence of deep tissue injury. Wound VAC removed. Dry dressing placed. Adaptic placed over area of open wound bed. Wound with 1.2 cm depth Patient insensate to knee. Unable to palpate pedal pulses. Psych: Mental Status: mental status grossly normal Affect: normal affect Objective Data Meds/Results Medications: Active Medications Generic Name Dose Route Start Last Admin Trade Name Freq PRN Reason Stop Dose Admin Collagenase 1 applic 01/06/21 09:10 Collagenase Oint 30 Gm Tube TOPICAL 04/08/21 23:55 PRN PRN Wound Care Silver Nitrate 1 each 01/06/21 09:11 Aquacel Ag Advantage Bandage (*Bkc) TOPICAL 04/08/21 23:55 PRN PRN Wound Care Tolnaftate 1 applic 01/06/21 09:10 Tolnaftate 1% Powder 45 Gm Btl TOPICAL 04/08/21 23:55 PRN PRN Wound Care
--- NOTE | 2021-01-20 08:54 | PM.CNOR ---
Assessment and Plan Assessment and plan (1) Diabetic infection of left foot: Onset Date: Unknown Code(s): E11.628 - Type 2 diabetes mellitus with other skin complications; L08.9 - Local infection of the skin and subcutaneous tissue, unspecified Status: Acute Assessment and Plan: 5.5 weeks status post debridement left foot. Now with reinfection of the ulcer, purulent drainage and cellulitis. Agree with admit to hospital. IV antibiotics. Previously infected with Bacteroides. Will require debridement of the left foot. Discussed nonoperative and operative treatment options with the patient. Risks and benefits of each as well as alternatives were reviewed. All of the patient's questions were answered. The risks of surgery reviewed including but not limited to: Neurovascular damage, wound complication, infection, blood clot, pulmonary embolus, stroke, myocardial infarction, and anesthetic risks up to and including . Continued pain and possible dysfunction were explained. Specific risks of the procedure including later recurrence of deformity. No guarantees were offered. If hardware used, discussed risk of failure/ breakage and possible need for removal. If complications occur, the patient understands the need for further treatment, possible further surgery. Patient verbalizes understanding and wishes to proceed. 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 Patient and family noted increased drainage and foul odor over the past 3 days from the left foot. Denies fever or chills. Presented to [facility] with purulent drainage from the left foot. Patient being admitted for further medical care and workup. Review of Systems Constitutional: Constitutional: Reports no additional constitutional complaints, Denies excessive sweating, Denies fever(s) and Denies weight gain Eyes: Eyes: Reports no additional eye complaints and Denies change in vision ENT: Reports system reviewed and no additional complaints, except as documented and Reports Normal hearing present Cardiovascular: Cardiovascular: Denies chest pain, Denies diaphoresis, Denies leg ulcers and Denies dyspnea on exertion Respiratory: Respiratory: Reports no additional respiratory complaints, Denies cough and Denies dyspnea on exertion Gastrointestinal: Gastrointestinal: Reports no additional gastrointestinal complaints, Denies abdominal pain, Denies constipation, Denies nausea and Denies vomiting Genitourinary: Genitourinary: Denies hematuria and Denies urinary frequency Musculoskeletal: Musculoskeletal: Reports as per HPI Integumentary/Breasts: Skin/Breast: Reports as per HPI Neurologic: Reports Normal hearing present and Reports other ( Some history of dementia) Endocrine: Endocrine: Reports as per HPI FOR[facility]LY [facility], [facility] Past Medical History Medical History BPH (benign prostatic hyperplasia) C4 cervical fracture Coronary artery disease Dementia Diabetic peripheral neuropathy Diabetic retinopathy Diabetic ulcer of left ankle Dyslipidemia Essential hypertension (Unknown) Hypertriglyceridemia Insulin dependent diabetes mellitus Kidney stones Primary cancer of skin of shoulder Skin cancer of nos
[2021-01-20 12:22] VITALS: BP 118/78; PULSE 76; TEMP 37.3; O2SAT 96
--- NOTE | 2021-02-03 08:57 | PM.PNORT ---
Progress Note: A&P Assessment and Plan (1) Diabetic infection of left foot: Onset Date: Unknown Code(s): E11.628 - Type 2 diabetes mellitus with other skin complications; L08.9 - Local infection of the skin and subcutaneous tissue, unspecified Status: Acute Assessment and Plan: 2 weeks post op. Sutures removed from proximal/medial wound bed. Distal sutures intact. Continue wound VAC dressing changes three times weekly. Add silver gel prior to wound VAC application. Continue oral antibiotics. Follow up in 1 week. Subjective Subjective Date/Time Seen: 02/03/21 08:57 Interval history: 2 weeks s/p Debridement left foot , application of graft, closure of wound. Patient is currently on oral antibiotics. Concern regarding wound by HH RN. Wound VAC dressing changes three times weekly. No fever, chills, night sweats, nausea, vomiting or diarrhea. Well maintained blood glucose levels. Review of Systems Constitutional: Constitutional: Reports no additional constitutional complaints, Denies excessive sweating, Denies fever(s) and Denies weight gain Eyes: Eyes: Reports no additional eye complaints and Denies change in vision ENT: Reports system reviewed and no additional complaints, except as documented and Reports Normal hearing present Cardiovascular: Cardiovascular: Denies chest pain, Denies diaphoresis, Denies leg ulcers and Denies dyspnea on exertion Respiratory: Respiratory: Reports no additional respiratory complaints, Denies cough and Denies dyspnea on exertion Gastrointestinal: Gastrointestinal: Reports no additional gastrointestinal complaints, Denies abdominal pain, Denies constipation, Denies nausea and Denies vomiting Genitourinary: Genitourinary: Denies hematuria and Denies urinary frequency Musculoskeletal: Musculoskeletal: Reports as per HPI Integumentary/Breasts: Skin/Breast: Reports as per HPI Neurologic: Reports Normal hearing present and Reports other ( Some history of dementia) Endocrine: Endocrine: Reports as per HPI Exam Const: General: cooperative, no acute distress, well developed and poor hygiene Nutritional Appearance: average body habitus Orientation/consciousness: oriented to person and oriented to place Limitations: no limitations Eyes: General: appearance normal, both eyes and all related structures Neck: Neck: supple and no JVD Resp: Effort & Inspection: normal respiratory effort Cardio: Rate: regular rate Rhythm: regular rhythm GI: Inspection: non-distended GI Palp: Yes Soft to palpation and No Tenderness to palpation present (GI) Neuro: Speech: normal speech Extrem: Left lower extremity: ankle ( redness, warmth and swelling to the medial aspect of the left ankle) and foot Details: 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 Sutures removed from proximal/medial aspect of the incision today. Distal sutures remain intact. Wound bed in the medial aspect of the incision with 10% granulation and 90% slough. Scant serosanguineous drainage. No surrounding redness/warmth. Mild swelling. Psych: Mental Status: mental status grossly normal Affect: normal affect Objective Data Meds/Results Medications: Active Medications Generic Name Dose Route Start Last Admin Trade Name Freq PRN Reason Stop Dose Admin Collagenase 1 applic 01/06/21 09:10 Collagenase Oint 30 Gm Tube TOPICAL 04/08/21 23:55 PRN PRN Wound Care Silver Nitrate 1 applic 01/20/21 12:23 Silvergel (Elta) 45 Ml TOPICAL 04/22/21 23:55 PRN PRN Wound Care Silver Nitrate
--- NOTE | 2021-02-10 11:55 | PM.PNORT ---
Progress Note: A&P Assessment and Plan (1) Diabetic infection of left foot: Onset Date: Unknown Code(s): E11.628 - Type 2 diabetes mellitus with other skin complications; L08.9 - Local infection of the skin and subcutaneous tissue, unspecified Status: Acute Assessment and Plan: 3 weeks status post debridement and graft application to left medial diabetic foot ulcer. Patient has undergoing wound VAC dressing changes 3 times weekly. Silver gel was added prior to wound VAC application last week. Remaining sutures removed today. Small incisional dehiscence measuring 0.2 x 1.8 x 0.1 cm at the more distal aspect of the left medial incision. Patient with marked improvement in wound appearance and granulation today. Surrounding tissue with some irritation maceration from wound VAC. Recommend wound VAC holiday at this time. Patient has now been indicated for outpatient graft application to expedite healing. Amnioexcel graft application performed under sterile conditions to the left medial wound. Mepitel ONE dressing placed over graft application. Transfer dressing applied. Wound then wrapped with Kerlix and taped in place. Patient to continue fracture boot. Minimal weight-bearing. Dressing should remain in place times 48 hours and then resume dressing changes with silver gel and Evi and transfer daily. Patient will follow-up in 1 week for re-evaluation of wound bed and potential re-application of wound VAC at that time. Reviewed signs and symptoms of infection to report to the emergency room immediately. Subjective Subjective Date/Time Seen: 02/10/21 11:55 Interval history: 3 weeks s/p Debridement left foot , application of graft, closure of wound. Patient is currently on oral antibiotics. Patient is currently undergoing home health wound VAC dressing changes 3 times weekly. He is suffering form some macerations surrounding the wound VAC. No fevers, chills, night sweats, nausea, vomiting or diarrhea. To maintain blood glucose levels. Review of Systems Constitutional: Constitutional: Reports no additional constitutional complaints, Denies excessive sweating, Denies fever(s) and Denies weight gain Eyes: Eyes: Reports no additional eye complaints and Denies change in vision ENT: Reports system reviewed and no additional complaints, except as documented and Reports Normal hearing present Cardiovascular: Cardiovascular: Denies chest pain, Denies diaphoresis, Denies leg ulcers and Denies dyspnea on exertion Respiratory: Respiratory: Reports no additional respiratory complaints, Denies cough and Denies dyspnea on exertion Gastrointestinal: Gastrointestinal: Reports no additional gastrointestinal complaints, Denies abdominal pain, Denies constipation, Denies nausea and Denies vomiting Genitourinary: Genitourinary: Denies hematuria and Denies urinary frequency Musculoskeletal: Musculoskeletal: Reports as per HPI Integumentary/Breasts: Skin/Breast: Reports as per HPI Neurologic: Reports Normal hearing present and Reports other ( Some history of dementia) Endocrine: Endocrine: Reports as per HPI Exam Const: General: cooperative, no acute distress, well developed and poor hygiene Nutritional Appearance: average body habitus Orientation/consciousness: oriented to person and oriented to place Limitations: no limitations Eyes: General: appearance normal, both eyes and all related structures Neck: Neck: supple and no JVD Resp: Effort & Inspection: normal respiratory effort Cardio: Rate: regular rate Rhythm: regular rhythm GI: Inspection: non-distended GI Palp: Yes Soft to palpation and No Tenderness to palpation present (GI) Neuro: Speech: normal speech Extrem: Left lower extremity: ankle ( redness, warmth and swelling to the medial aspect of the left ankle) and foot Details: 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
--- NOTE | 2021-02-17 09:40 | PM.PNORT ---
Progress Note: A&P Assessment and Plan (1) Diabetic infection of left foot: Onset Date: Unknown Code(s): E11.628 - Type 2 diabetes mellitus with other skin complications; L08.9 - Local infection of the skin and subcutaneous tissue, unspecified Status: Acute Assessment and Plan: 4 weeks status post debridement and graft application to left medial diabetic foot ulcer. 1 week s/p graft application to medial wound bed. Wound VAC holiday. Improvement in wound bed and surrounding tissue. Discontinue wound VAC at this time. Continue daily dressing changes with silver gel/autumn. Follow up next week for repeat graft application. Continue fracture boot. Monitor for signs of infection. Reinforced need for PWB and diabetic diet for optimal healing and swelling reduction. Reviewed signs and symptoms of infection to report to the emergency room immediately. Time Spent With Patient Time with patient: 15 - 25 minutes Subjective Subjective Date/Time Seen: 02/17/21 09:40 Interval history: 4 weeks s/p Debridement left foot , application of graft, closure of wound. 1 week s/p graft application in the outpatient wound clinic. Patient is still on oral antibiotics. Wound VAC holiday. No new signs of infection per patient/. Tolerating home dressing changes daily without difficulty. Post op shoe, tolerating well. Review of Systems Constitutional: Constitutional: Reports no additional constitutional complaints, Denies excessive sweating, Denies fever(s) and Denies weight gain Eyes: Eyes: Reports no additional eye complaints and Denies change in vision ENT: Reports system reviewed and no additional complaints, except as documented and Reports Normal hearing present Cardiovascular: Cardiovascular: Denies chest pain, Denies diaphoresis, Denies leg ulcers and Denies dyspnea on exertion Respiratory: Respiratory: Reports no additional respiratory complaints, Denies cough and Denies dyspnea on exertion Gastrointestinal: Gastrointestinal: Reports no additional gastrointestinal complaints, Denies abdominal pain, Denies constipation, Denies nausea and Denies vomiting Genitourinary: Genitourinary: Denies hematuria and Denies urinary frequency Musculoskeletal: Musculoskeletal: Reports as per HPI Integumentary/Breasts: Skin/Breast: Reports as per HPI Neurologic: Reports Normal hearing present and Reports other ( Some history of dementia) Endocrine: Endocrine: Reports as per HPI Exam Const: General: cooperative, no acute distress, well developed and poor hygiene Nutritional Appearance: average body habitus Orientation/consciousness: oriented to person and oriented to place Limitations: no limitations Eyes: General: appearance normal, both eyes and all related structures Neck: Neck: supple and no JVD Resp: Effort & Inspection: normal respiratory effort Cardio: Rate: regular rate Rhythm: regular rhythm GI: Inspection: non-distended GI Palp: Yes Soft to palpation and No Tenderness to palpation present (GI) Neuro: Speech: normal speech Extrem: Left lower extremity: ankle ( redness, warmth and swelling to the medial aspect of the left ankle) and foot Details: 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 Small wound dehiscence on the more distal aspect of this incision line measures 0.4x0.1x0.1 cm. 100% red/pink. Scant serosanguineous drainage. No surrounding redness/warmth. Mild swelling. Psych: Mental Status: mental status grossly normal Affect: normal affect Objective Data Meds/Result
--- NOTE | 2021-02-21 08:53 | PM.PNORT ---
Progress Note: A&P Assessment and Plan (1) Diabetic infection of left foot: Onset Date: Unknown Code(s): E11.628 - Type 2 diabetes mellitus with other skin complications; L08.9 - Local infection of the skin and subcutaneous tissue, unspecified Status: Acute Assessment and Plan: 4 weeks, 4 days status post debridement and graft application to left medial diabetic foot ulcer. 2 week s/p graft application to medial wound bed. Discontinued wound VAC. Continued improvement in wound bed and surrounding tissue. Recommended repeat graft application at this time given good efficacy of wound bed improvement s/p last graft. Graft applied under sterile conditions. Dressing in place. Patient to keep in place x48-72 hours and then resume daily dressing changes with silver gel/autumn. Follow up next week for reevaluation. Continue fracture boot. Monitor for signs of infection. Reinforced need for PWB and diabetic diet for optimal healing and swelling reduction. Reviewed signs and symptoms of infection to report to the emergency room immediately. Subjective Subjective Date/Time Seen: 02/21/21 08:53 Interval history: 4 weeks, 4 days s/p Debridement left foot , application of graft, closure of wound. 2 week s/p graft application in the outpatient wound clinic. Patient is still on oral antibiotics. No new signs of infection per patient/. Tolerating home dressing changes daily without difficulty. Post op shoe, tolerating well. Review of Systems Constitutional: Constitutional: Reports no additional constitutional complaints, Denies excessive sweating, Denies fever(s) and Denies weight gain Eyes: Eyes: Reports no additional eye complaints and Denies change in vision ENT: Reports system reviewed and no additional complaints, except as documented and Reports Normal hearing present Cardiovascular: Cardiovascular: Denies chest pain, Denies diaphoresis, Denies leg ulcers and Denies dyspnea on exertion Respiratory: Respiratory: Reports no additional respiratory complaints, Denies cough and Denies dyspnea on exertion Gastrointestinal: Gastrointestinal: Reports no additional gastrointestinal complaints, Denies abdominal pain, Denies constipation, Denies nausea and Denies vomiting Genitourinary: Genitourinary: Denies hematuria and Denies urinary frequency Musculoskeletal: Musculoskeletal: Reports as per HPI Integumentary/Breasts: Skin/Breast: Reports as per HPI Neurologic: Reports Normal hearing present and Reports other ( Some history of dementia) Endocrine: Endocrine: Reports as per HPI Exam Const: General: cooperative, no acute distress, well developed and poor hygiene Nutritional Appearance: average body habitus Orientation/consciousness: oriented to person and oriented to place Limitations: no limitations Eyes: General: appearance normal, both eyes and all related structures Neck: Neck: supple and no JVD Resp: Effort & Inspection: normal respiratory effort Cardio: Rate: regular rate Rhythm: regular rhythm GI: Inspection: non-distended GI Palp: Yes Soft to palpation and No Tenderness to palpation present (GI) Neuro: Speech: normal speech Extrem: Left lower extremity: ankle ( redness, warmth and swelling to the medial aspect of the left ankle) and foot Details: 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 90% red/pink, 10% slough. Small wound dehiscence on the more distal aspect of this incision line closed. 100% red/pink. Scant serosanguineous drainage. No marina
--- NOTE | 2021-02-28 08:49 | PM.PNORT ---
Progress Note: A&P Assessment and Plan (1) Diabetic infection of left foot: Onset Date: Unknown Code(s): E11.628 - Type 2 diabetes mellitus with other skin complications; L08.9 - Local infection of the skin and subcutaneous tissue, unspecified Status: Acute Assessment and Plan: 5 weeks, 4 days status post debridement and graft application to left medial diabetic foot ulcer. 1 week s/p graft application to medial wound bed. Continued improvement in wound bed appearance and dimensions today. Patient to continue daily antibiotics until completion (24 day total of Doxycycline). Continue daily dressing changes with silver gel/autumn and cover dry. Reinforced need for PWB and diabetic diet for optimal healing and swelling reduction. Reviewed signs and symptoms of infection to report to the emergency room immediately. Follow up in 1 week for repeat graft application. Subjective Subjective Date/Time Seen: 02/28/21 08:49 Interval history: Patient is 5 weeks, 4 days status post debridement and graft application. He is now 1 week status post graft application in the outpatient orthopedic clinic. He denies fever, chills, night sweats, nausea, vomiting or diarrhea. Patient reports well-maintained blood glucose well. Patient reports diabetic compliant diet. Patient and are performing home dressing changes without difficulties. No new signs of infection today. Review of Systems Constitutional: Constitutional: Reports no additional constitutional complaints, Denies excessive sweating, Denies fever(s) and Denies weight gain Eyes: Eyes: Reports no additional eye complaints and Denies change in vision ENT: Reports system reviewed and no additional complaints, except as documented and Reports Normal hearing present Cardiovascular: Cardiovascular: Denies chest pain, Denies diaphoresis, Denies leg ulcers and Denies dyspnea on exertion Respiratory: Respiratory: Reports no additional respiratory complaints, Denies cough and Denies dyspnea on exertion Gastrointestinal: Gastrointestinal: Reports no additional gastrointestinal complaints, Denies abdominal pain, Denies constipation, Denies nausea and Denies vomiting Genitourinary: Genitourinary: Denies hematuria and Denies urinary frequency Musculoskeletal: Musculoskeletal: Reports as per HPI Integumentary/Breasts: Skin/Breast: Reports as per HPI Neurologic: Reports Normal hearing present and Reports other ( Some history of dementia) Endocrine: Endocrine: Reports as per HPI Exam Const: General: cooperative, no acute distress, well developed and poor hygiene Nutritional Appearance: average body habitus Orientation/consciousness: oriented to person and oriented to place Limitations: no limitations Eyes: General: appearance normal, both eyes and all related structures Neck: Neck: supple and no JVD Resp: Effort & Inspection: normal respiratory effort GI: Inspection: non-distended GI Palp: Yes Soft to palpation and No Tenderness to palpation present (GI) Skin: Wounds: wounds noted Neuro: Speech: normal speech Extrem: Left lower extremity: ankle ( redness, warmth and swelling to the medial aspect of the left ankle) and foot Details: 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 100% red/pink. Small wound dehiscence on the more distal aspect of this incision line closed. Mild serosanguineous drainage. No surrounding redness/warmth. Mild swelling. Psych: Mental Status: mental status grossly normal Affect: normal aff
--- NOTE | 2021-03-07 09:13 | PM.PNORT ---
Progress Note: A&P Assessment and Plan (1) Diabetic infection of left foot: Onset Date: Unknown Code(s): E11.628 - Type 2 diabetes mellitus with other skin complications; L08.9 - Local infection of the skin and subcutaneous tissue, unspecified Status: Acute Assessment and Plan: 6 weeks, 4 days status post debridement and graft application to left medial diabetic foot ulcer. 2 weeks s/p graft application to medial wound bed. Continued improvement in wound bed appearance, graft incorporated well. Significant improvement in depth/tunneling. Given good efficacy of improvement in wound bed with graft applications, recommend repeat graft application today. Grafts applied under sterile conditions. See procedure note for details. Patient to continue oral antibiotics. Patient to keep dressing in place times 48 hours and then resume daily dressing changes with Evi, silver gel and covering dry. Patient to continue fracture boot. Will decrease home health at this time. Patient follow-up in 1 week for re-evaluation. Subjective Subjective Date/Time Seen: 03/07/21 09:13 Interval history: Patient is 6 weeks, 4 days status post debridement and graft application. He is now 2 week status post graft application in the outpatient orthopedic clinic. He denies fever, chills, night sweats, nausea, vomiting or diarrhea. Patient reports well-maintained blood glucose well. Patient reports diabetic compliant diet. Patient and are performing home dressing changes without difficulties. Home health is still assisting 2x weekly. Patient/ feel they can decrease home health visits. No new signs of infection today. Review of Systems Constitutional: Constitutional: Reports no additional constitutional complaints, Denies excessive sweating, Denies fever(s) and Denies weight gain Eyes: Eyes: Reports no additional eye complaints and Denies change in vision ENT: Reports system reviewed and no additional complaints, except as documented and Reports Normal hearing present Cardiovascular: Cardiovascular: Denies chest pain, Denies diaphoresis, Denies leg ulcers and Denies dyspnea on exertion Respiratory: Respiratory: Reports no additional respiratory complaints, Denies cough and Denies dyspnea on exertion Gastrointestinal: Gastrointestinal: Reports no additional gastrointestinal complaints, Denies abdominal pain, Denies constipation, Denies nausea and Denies vomiting Genitourinary: Genitourinary: Denies hematuria and Denies urinary frequency Musculoskeletal: Musculoskeletal: Reports as per HPI Integumentary/Breasts: Skin/Breast: Reports as per HPI Neurologic: Reports Normal hearing present and Reports other ( Some history of dementia) Endocrine: Endocrine: Reports as per HPI Exam Const: General: cooperative, no acute distress, well developed and poor hygiene Nutritional Appearance: average body habitus Orientation/consciousness: oriented to person and oriented to place Limitations: no limitations Eyes: General: appearance normal, both eyes and all related structures Neck: Neck: supple and no JVD Resp: Effort & Inspection: normal respiratory effort GI: Inspection: non-distended GI Palp: Yes Soft to palpation and No Tenderness to palpation present (GI) Skin: Wounds: wounds noted Neuro: Speech: normal speech Extrem: Left lower extremity: ankle Details: swelling Details: medially, normal ROM and other (wound, see below ); no tenderness, no warmth and no ecchymosis and foot Details: abnormal to inspection (5th ray amp), edema (mild, entire foot ), vascular exam (unable to palpate pedal pulses) Details: abnormal capillary refill ( sluggish) Location: of all toes; not of the 5th digit; dorsalis pedis pulse absent and posterior tivial pulse absent and motor-sensory exam ( insensate to mid jay) two point discrimination normal and light-touch abnormal Other: Wound on the medial aspect of the left foot measures 3.2x1.0x1.1 cm,
--- NOTE | 2021-03-14 09:11 | PM.PNORT ---
Progress Note: A&P Assessment and Plan (1) Diabetic infection of left foot: Onset Date: Unknown Code(s): E11.628 - Type 2 diabetes mellitus with other skin complications; L08.9 - Local infection of the skin and subcutaneous tissue, unspecified Status: Acute Assessment and Plan: 7 weeks, 4 days status post debridement and graft application to left medial diabetic foot ulcer. 1 weeks s/p graft application to medial wound bed. Continued improvement in wound bed appearance, graft incorporated well. Evi, silver gel and covering dry. Patient to continue fracture boot. Will decrease home health at this time. Patient follow-up in 1 week for re-evaluation and graft application. Subjective Subjective Date/Time Seen: 03/14/21 09:11 Post Op day: 7.5wks Principal diagnosis: Left ankle ulcer Interval history: 7.5 weeks status post debridement application of graft with removal of Tendon left foot and ankle ulcer. Evi and silver Gel dressing in the interim. No other complaints. 1 week status post application graft Exam Const: General: cooperative, no acute distress, well developed and poor hygiene Nutritional Appearance: average body habitus Orientation/consciousness: oriented to person and oriented to place Limitations: no limitations Eyes: General: appearance normal, both eyes and all related structures Neck: Neck: supple and no JVD Resp: Effort & Inspection: normal respiratory effort GI: Inspection: non-distended GI Palp: Yes Soft to palpation and No Tenderness to palpation present (GI) Skin: Wounds: wounds noted Neuro: Speech: normal speech Extrem: Left lower extremity: ankle Details: swelling Details: medially, normal ROM and other (wound, see below ); no tenderness, no warmth and no ecchymosis and foot Details: abnormal to inspection (5th ray amp), edema (mild, entire foot ), vascular exam (unable to palpate pedal pulses) Details: abnormal capillary refill ( sluggish) Location: of all toes; not of the 5th digit; dorsalis pedis pulse absent and posterior tivial pulse absent and motor-sensory exam ( insensate to mid jay) two point discrimination normal and light-touch abnormal Other: Wound on the medial aspect of the left foot measures 3.5x1.2x1.2 cm, tunneling at 5 o'clock position 1 cm. 100% red/pink. Mild serosanguineous drainage. No surrounding redness/warmth. Mild swelling. Psych: Mental Status: mental status grossly normal Affect: normal affect Thought content: Yes Normal thought content present Objective Data Meds/Results Medications: Active Medications Generic Name Dose Route Start Last Admin Trade Name Freq PRN Reason Stop Dose Admin Silver Nitrate 1 applic 01/20/21 12:23 Silvergel (Elta) 45 Ml TOPICAL 04/22/21 23:55 PRN PRN Wound Care Tolnaftate 1 applic 01/06/21 09:10 Tolnaftate 1% Powder 45 Gm Btl TOPICAL 04/08/21 23:55 PRN PRN Wound Care Wound Care/Dressing Products 1 patch 02/10/21 10:20 Mepilex Transfer Drsg 6x8 TOPICAL 05/13/21 23:55 PRN PRN Wound Care [facility] Follow-up Billing Inpatient Follow-up [id number] Post-op Follow Up
--- NOTE | 2021-03-21 10:18 | PM.IMHP ---
H&P: [facility] History of Present Illness Date/Time: 03/21/21 0815 Chief Complaint: Left medial diabetic foot ulcer Narrative: 80-year-old male follows up in [place] wound clinic today 8 weeks, 4 days status post left diabetic foot debridement and graft application. He is 14 weeks status post initial surgical intervention. He has been undergoing graft application in the outpatient wound clinic every other week. His has been performing daily dressing changes in the interim. No new concerns today. No new signs of infection. 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 Jackson History of tonsillectomy Family History Family History Mother Diabetes mellitus Father , during World War 2 when the patient was a infant War inj:expl bomb-cease Social History Social History Social History: He lives in [place] with his of 60 years. Their daughter and son are healthy. He is a lifelong nonsmoker. Denies drug or alcohol use. Have cats at home. Primary care physician: Dr. Rodney Vila Code status: Full code Surrogate decision maker: Smoking status: Never smoker Second hand tobacco smoke exposure: No Alcohol intake: never Substance use: never Gender identity (if verbalized by the patient): Male Spiritual care concerns: No Meds Home Medications and Allergies Home Medications Medication Instructions Recorded Confirmed Type donepezil 10 mg PO HS 09/30/20 01/20/21 History rosuvastatin 20 mg PO DAILY 09/30/20 01/20/21 History Tresiba FlexTouch U-200 44 unit SUBCUT QPM 12/09/20 01/20/21 History carvedilol 12.5 mg PO DAILY 12/09/20 01/20/21 History insulin lispro 30 unit SUBCUT AC 12/09/20 01/20/21 History amlodipine [Norvasc] 5 mg PO QAM #30 tablet 12/16/20 01/20/21 Rx hydrocodone-acetaminophen 1 tablet PO Q4H PRN #12 tablet 12/16/20 01/20/21 Rx levetiracetam [Keppra] 500 mg PO BID #60 tablet 12/16/20 01/20/21 Rx polyethylene glycol 3350 [Miralax] 17 g PO QAM #30 ea 12/16/20 01/20/21 Rx tolnaftate 1 applic TOPICAL PRN PRN #45 g 12/16/20 01/20/21 Rx cholecalciferol (vitamin D3) 125 mcg PO EVERY OTHER DAY 01/20/21 01/20/21 History [Vitamin D3] magnesium oxide 500 mg PO EVERY OTHER DAY 01/20/21 01/20/21 History potassium chloride 15 meq PO EVERY OTHER DAY 01/20/21 01/20/21 History vitamin B complex 1 cap PO EVERY OTHER DAY 01/20/21 01/20/21 History vitamin B complex [B 1 tablet PO DAILY 01/20/21 01/20/21 History Complex-Vitamin B12] amoxicillin-pot clavulanate 1 tablet PO Q8HR #72 tablet 01/24/21 Rx [Augmentin] docosanol [Abreva] 1 applic TOPICAL 5 TIMES DAILY #6 g 01/24/21 Rx doxycycline hyclate 100 mg PO Q12HR #48 tablet 01/24/21 Rx famotidi
--- NOTE | 2021-03-28 08:49 | PM.IMHP ---
H&P: HPI History of Present Illness Date/Time: 03/28/21 08:49 Chief Complaint: Left medial DFU Narrative: 80-year-old male follows up in [place] wound clinic today 9 weeks, 4 days status post left diabetic foot debridement and graft application. He is 14 weeks status post initial surgical intervention. He has been undergoing graft application in the outpatient wound clinic every other week. His has been performing daily dressing changes in the interim. No new concerns today. No new signs of infection. 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 Jackson History of tonsillectomy Family History Family History Mother Diabetes mellitus Father , during World War 2 when the patient was a infant War inj:expl bomb-cease Social History Social History Social History: He lives in [place] with his of 60 years. Their daughter and son are healthy. He is a lifelong nonsmoker. Denies drug or alcohol use. Have cats at home. Primary care physician: Dr. Rodney Vila Code status: Full code Surrogate decision maker: Smoking status: Never smoker Second hand tobacco smoke exposure: No Alcohol intake: never Substance use: never Gender identity (if verbalized by the patient): Male Spiritual care concerns: No Meds Home Medications and Allergies Home Medications Medication Instructions Recorded Confirmed Type donepezil 10 mg PO HS 09/30/20 01/20/21 History rosuvastatin 20 mg PO DAILY 09/30/20 01/20/21 History Tresiba FlexTouch U-200 44 unit SUBCUT QPM 12/09/20 01/20/21 History carvedilol 12.5 mg PO DAILY 12/09/20 01/20/21 History insulin lispro 30 unit SUBCUT AC 12/09/20 01/20/21 History amlodipine [Norvasc] 5 mg PO QAM #30 tablet 12/16/20 01/20/21 Rx hydrocodone-acetaminophen 1 tablet PO Q4H PRN #12 tablet 12/16/20 01/20/21 Rx levetiracetam [Keppra] 500 mg PO BID #60 tablet 12/16/20 01/20/21 Rx polyethylene glycol 3350 [Miralax] 17 g PO QAM #30 ea 12/16/20 01/20/21 Rx tolnaftate 1 applic TOPICAL PRN PRN #45 g 12/16/20 01/20/21 Rx cholecalciferol (vitamin D3) 125 mcg PO EVERY OTHER DAY 01/20/21 01/20/21 History [Vitamin D3] magnesium oxide 500 mg PO EVERY OTHER DAY 01/20/21 01/20/21 History potassium chloride 15 meq PO EVERY OTHER DAY 01/20/21 01/20/21 History vitamin B complex 1 cap PO EVERY OTHER DAY 01/20/21 01/20/21 History vitamin B complex [B 1 tablet PO DAILY 01/20/21 01/20/21 History Complex-Vitamin B12] amoxicillin-pot clavulanate 1 tablet PO Q8HR #72 tablet 01/24/21 Rx [Augmentin] docosanol [Abreva] 1 applic TOPICAL 5 TIMES DAILY #6 g 01/24/21 Rx doxycycline hyclate 100 mg PO Q12HR #48 tablet 01/24/21 Rx famotidine 20 mg PO Q1
--- NOTE | 2021-04-04 09:55 | PM.IMHP ---
H&P: HPI History of Present Illness Date/Time: 04/04/21 09:55 Chief Complaint: Left medial DFU Narrative: 80-year-old male follows up in [place] wound clinic today 10 weeks, 4 days status post left diabetic foot debridement and graft application. He is 3 months status post initial surgical intervention. He has been undergoing graft application in the outpatient wound clinic every other week. His has been performing daily dressing changes in the interim. No new concerns today. No new signs of infection. 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 Jackson History of tonsillectomy Family History Family History Mother Diabetes mellitus Father , during World War 2 when the patient was a infant War inj:expl bomb-cease Social History Social History Social History: He lives in [place] with his of 60 years. Their daughter and son are healthy. He is a lifelong nonsmoker. Denies drug or alcohol use. Have cats at home. Primary care physician: Dr. Rodney Vila Code status: Full code Surrogate decision maker: Smoking status: Never smoker Second hand tobacco smoke exposure: No Alcohol intake: never Substance use: never Gender identity (if verbalized by the patient): Male Spiritual care concerns: No Meds Home Medications and Allergies Home Medications Medication Instructions Recorded Confirmed Type donepezil 10 mg PO HS 09/30/20 01/20/21 History rosuvastatin 20 mg PO DAILY 09/30/20 01/20/21 History Tresiba FlexTouch U-200 44 unit SUBCUT QPM 12/09/20 01/20/21 History carvedilol 12.5 mg PO DAILY 12/09/20 01/20/21 History insulin lispro 30 unit SUBCUT AC 12/09/20 01/20/21 History amlodipine [Norvasc] 5 mg PO QAM #30 tablet 12/16/20 01/20/21 Rx hydrocodone-acetaminophen 1 tablet PO Q4H PRN #12 tablet 12/16/20 01/20/21 Rx levetiracetam [Keppra] 500 mg PO BID #60 tablet 12/16/20 01/20/21 Rx polyethylene glycol 3350 [Miralax] 17 g PO QAM #30 ea 12/16/20 01/20/21 Rx tolnaftate 1 applic TOPICAL PRN PRN #45 g 12/16/20 01/20/21 Rx cholecalciferol (vitamin D3) 125 mcg PO EVERY OTHER DAY 01/20/21 01/20/21 History [Vitamin D3] magnesium oxide 500 mg PO EVERY OTHER DAY 01/20/21 01/20/21 History potassium chloride 15 meq PO EVERY OTHER DAY 01/20/21 01/20/21 History vitamin B complex 1 cap PO EVERY OTHER DAY 01/20/21 01/20/21 History vitamin B complex [B 1 tablet PO DAILY 01/20/21 01/20/21 History Complex-Vitamin B12] amoxicillin-pot clavulanate 1 tablet PO Q8HR #72 tablet 01/24/21 Rx [Augmentin] docosanol [Abreva] 1 applic TOPICAL 5 TIMES DAILY #6 g 01/24/21 Rx doxycycline hyclate 100 mg PO Q12HR #48 tablet 01/24/21 Rx famotidine 20 mg PO Q12
== END 2021-04-06 23:59 | disposition home or self-care (01) ==
LOC: ANHWOC 07:27
PROVIDERS: PCP Internal Medicine; Visit Provider Nurse Practitioner Family
DX: Z48.00 Encounter for change or removal of nonsurgical wound dressing (principal); E11.621 Type 2 diabetes mellitus with foot ulcer; L97.529 Non-pressure chronic ulcer of other part of left foot with unspecified severity
CPT/HCPCS: 15275; 97605; 99212; 99213; A9270; G0463; Q4137

== ENCOUNTER 2021-07-04 07:57 | Outpatient (RCR) | payer MEDICARE, SELFPAY ==
[2021-04-07 00:03] VITALS: BP 118/78; PULSE 76; TEMP 37.3; O2SAT 96
--- NOTE | 2021-04-18 09:53 | PM.IMHP ---
H&P: HPI History of Present Illness Date/Time: 04/18/21 09:53 Chief Complaint: Left Medial DFU Narrative: 80-year-old male follows up in [facility] wound clinic today 12 weeks, 4 days status post left diabetic foot debridement and graft application. He has been undergoing graft application in the outpatient wound clinic every other week. His has been performing daily dressing changes in the interim. No new concerns today. No new signs of infection. 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 Jackson History of tonsillectomy Family History Family History Mother Diabetes mellitus Father , during World War 2 when the patient was a War inj:expl bomb-cease Social History Social History Social History: He lives in [place] with his of 60 years. Their daughter and son are healthy. He is a lifelong nonsmoker. Denies drug or alcohol use. Have cats at home. Primary care physician: Dr. Rodney Vila Code status: Full code Surrogate decision maker: Smoking status: Never smoker Second hand tobacco smoke exposure: No Alcohol intake: never Substance use: never Gender identity (if verbalized by the patient): Male Spiritual care concerns: No Meds Home Medications and Allergies Home Medications Medication Instructions Recorded Confirmed Type donepezil 10 mg PO HS 09/30/20 01/20/21 History rosuvastatin 20 mg PO DAILY 09/30/20 01/20/21 History Tresiba FlexTouch U-200 44 unit SUBCUT QPM 12/09/20 01/20/21 History carvedilol 12.5 mg PO DAILY 12/09/20 01/20/21 History insulin lispro 30 unit SUBCUT AC 12/09/20 01/20/21 History amlodipine [Norvasc] 5 mg PO QAM #30 tablet 12/16/20 01/20/21 Rx hydrocodone-acetaminophen 1 tablet PO Q4H PRN #12 tablet 12/16/20 01/20/21 Rx levetiracetam [Keppra] 500 mg PO BID #60 tablet 12/16/20 01/20/21 Rx polyethylene glycol 3350 [Miralax] 17 g PO QAM #30 ea 12/16/20 01/20/21 Rx tolnaftate 1 applic TOPICAL PRN PRN #45 g 12/16/20 01/20/21 Rx cholecalciferol (vitamin D3) 125 mcg PO EVERY OTHER DAY 01/20/21 01/20/21 History [Vitamin D3] magnesium oxide 500 mg PO EVERY OTHER DAY 01/20/21 01/20/21 History potassium chloride 15 meq PO EVERY OTHER DAY 01/20/21 01/20/21 History vitamin B complex 1 cap PO EVERY OTHER DAY 01/20/21 01/20/21 History vitamin B complex [B 1 tablet PO DAILY 01/20/21 01/20/21 History Complex-Vitamin B12] amoxicillin-pot clavulanate 1 tablet PO Q8HR #72 tablet 01/24/21 Rx [Augmentin] docosanol [Abreva] 1 applic TOPICAL 5 TIMES DAILY #6 g 01/24/21 Rx doxycycline hyclate 100 mg PO Q12HR #48 tablet 01/24/21 Rx famotidine 20 mg PO Q12HR #60 tablet 01/24/21 Rx hydrocodone-acetaminophen 1 tabl
--- NOTE | 2021-05-02 10:08 | PM.IMHP ---
H&P: HPI History of Present Illness Date/Time: 05/02/21 10:08 Chief Complaint: left diabetic foot ulcer Narrative: 80-year-old male follows up in [facility] wound clinic today 14 weeks, 4 days status post left diabetic foot debridement and graft application. He has been undergoing graft application in the outpatient wound clinic every other week. His has been performing daily dressing changes in the interim. No new concerns today. No new signs of infection. Review of Systems Review of Systems: All systems reviewed & are unremarkable except as noted in HPI and below Constitutional: Constitutional: Reports as per HPI COUNTS INCLUDE 234 BEDS AT THE [facility] Past Medical History Medical History BPH (benign prostatic hyperplasia) C4 cervical fracture Coronary artery disease Dementia Diabetic peripheral neuropathy Diabetic retinopathy Diabetic ulcer of left ankle Dyslipidemia Essential hypertension (Unknown) Hypertriglyceridemia Insulin dependent diabetes mellitus Kidney stones Primary cancer of skin of shoulder Skin cancer of nose Surgical History Surgical History 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 Jackson History of tonsillectomy Family History Family History Mother Diabetes mellitus Father , during World War 2 when the patient was a War inj:expl bomb-cease Social History Social History Social History: He lives in [place] with his of 60 years. Their daughter and son are healthy. He is a lifelong nonsmoker. Denies drug or alcohol use. Have cats at home. Primary care physician: Dr. Rodney Vila Code status: Full code Surrogate decision maker: Smoking status: Never smoker Second hand tobacco smoke exposure: No Alcohol intake: never Substance use: never Gender identity (if verbalized by the patient): Male Spiritual care concerns: No Meds Home Medications and Allergies Home Medications Medication Instructions Recorded Confirmed Type donepezil 10 mg PO HS 09/30/20 01/20/21 History rosuvastatin 20 mg PO DAILY 09/30/20 01/20/21 History Tresiba FlexTouch U-200 44 unit SUBCUT QPM 12/09/20 01/20/21 History carvedilol 12.5 mg PO DAILY 12/09/20 01/20/21 History insulin lispro 30 unit SUBCUT AC 12/09/20 01/20/21 History amlodipine [Norvasc] 5 mg PO QAM #30 tablet 12/16/20 01/20/21 Rx hydrocodone-acetaminophen 1 tablet PO Q4H PRN #12 tablet 12/16/20 01/20/21 Rx levetiracetam [Keppra] 500 mg PO BID #60 tablet 12/16/20 01/20/21 Rx polyethylene glycol 3350 [Miralax] 17 g PO QAM #30 ea 12/16/20 01/20/21 Rx tolnaftate 1 applic TOPICAL PRN PRN #45 g 12/16/20 01/20/21 Rx cholecalciferol (vitamin D3) 125 mcg PO EVERY OTHER DAY 01/20/21 01/20/21 History [Vitamin D3] magnesium oxide 500 mg PO EVERY OTHER DAY 01/20/21 01/20/21 History potassium chloride 15 meq PO EVERY OTHER DAY 01/20/21 01/20/21 History vitamin B complex 1 cap PO EVERY OTHER DAY 01/20/21 01/20/21 History vitamin B complex [B 1 tablet PO DAILY 01/20/21 01/20/21 History Complex-Vitamin B12] amoxicillin-pot clavulanate 1 tablet PO Q8HR #72 tablet 01/24/21 Rx [Augmentin] docosanol [Abreva] 1 applic TOPICAL 5 TIMES DAILY #6 g 01/24/21 Rx doxycycline hyclate 100 mg PO Q12HR #48 tablet 01/24/21 Rx famotidine 20 mg P
--- NOTE | 2021-05-16 08:43 | PM.IMHP ---
H&P: HPI History of Present Illness Date/Time: 05/16/21 08:43 Chief Complaint: Left DFU Narrative: 80-year-old male follows up in [facility] today 3.5 months status post left diabetic foot debridement and graft application. He has been undergoing graft application in the outpatient wound clinic every other week. His has been performing daily dressing changes in the interim. No new concerns today. No new signs of infection. Tolerating PO shoe well. Review of Systems Review of Systems: All systems reviewed & are unremarkable except as noted in HPI and below Constitutional: Constitutional: Reports as per HPI [facility] Past Medical History Medical History BPH (benign prostatic hyperplasia) C4 cervical fracture Coronary artery disease Dementia Diabetic peripheral neuropathy Diabetic retinopathy Diabetic ulcer of left ankle Dyslipidemia Essential hypertension (Unknown) Hypertriglyceridemia Insulin dependent diabetes mellitus Kidney stones Primary cancer of skin of shoulder Skin cancer of nose Surgical History Surgical History 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 Jackson History of tonsillectomy Family History Family History Mother Diabetes mellitus Father , during World War 2 when the patient was a War inj:expl bomb-cease Social History Social History Social History: He lives in [place] with his of 60 years. Their daughter and son are healthy. He is a lifelong nonsmoker. Denies drug or alcohol use. Have cats at home. Primary care physician: Dr. Rodney Vila Code status: Full code Surrogate decision maker: Smoking status: Never smoker Second hand tobacco smoke exposure: No Alcohol intake: never Substance use: never Gender identity (if verbalized by the patient): Male Spiritual care concerns: No Meds Home Medications and Allergies Home Medications Medication Instructions Recorded Confirmed Type donepezil 10 mg PO HS 09/30/20 01/20/21 History rosuvastatin 20 mg PO DAILY 09/30/20 01/20/21 History Tresiba FlexTouch U-200 44 unit SUBCUT QPM 12/09/20 01/20/21 History carvedilol 12.5 mg PO DAILY 12/09/20 01/20/21 History insulin lispro 30 unit SUBCUT AC 12/09/20 01/20/21 History amlodipine [Norvasc] 5 mg PO QAM #30 tablet 12/16/20 01/20/21 Rx hydrocodone-acetaminophen 1 tablet PO Q4H PRN #12 tablet 12/16/20 01/20/21 Rx levetiracetam [Keppra] 500 mg PO BID #60 tablet 12/16/20 01/20/21 Rx polyethylene glycol 3350 [Miralax] 17 g PO QAM #30 ea 12/16/20 01/20/21 Rx tolnaftate 1 applic TOPICAL PRN PRN #45 g 12/16/20 01/20/21 Rx cholecalciferol (vitamin D3) 125 mcg PO EVERY OTHER DAY 01/20/21 01/20/21 History [Vitamin D3] magnesium oxide 500 mg PO EVERY OTHER DAY 01/20/21 01/20/21 History potassium chloride 15 meq PO EVERY OTHER DAY 01/20/21 01/20/21 History vitamin B complex 1 cap PO EVERY OTHER DAY 01/20/21 01/20/21 History vitamin B complex [B 1 tablet PO DAILY 01/20/21 01/20/21 History Complex-Vitamin B12] amoxicillin-pot clavulanate 1 tablet PO Q8HR #72 tablet 01/24/21 Rx [Augmentin] docosanol [Abreva] 1 applic TOPICAL 5 TIMES DAILY #6 g 01/24/21 Rx doxycycline hyclate 100 mg PO Q12HR #48 tablet 01/24/21 Rx famotidine 20 mg
--- NOTE | 2021-05-30 13:00 | PM.IMHP ---
H&P: HPI History of Present Illness Date/Time: 05/30/21 13:01 Chief Complaint: Left DFU Narrative: 80-year-old male follows up in [facility] today 4 months status post left diabetic foot debridement and graft application. He has been undergoing graft application in the outpatient wound clinic every other week. His has been performing daily dressing changes in the interim. No new concerns today. No new signs of infection. Tolerating PO shoe well. Review of Systems Review of Systems: All systems reviewed & are unremarkable except as noted in HPI and below Constitutional: Constitutional: Reports as per HPI [facility] Past Medical History Medical History BPH (benign prostatic hyperplasia) C4 cervical fracture Coronary artery disease Dementia Diabetic peripheral neuropathy Diabetic retinopathy Diabetic ulcer of left ankle Dyslipidemia Essential hypertension (Unknown) Hypertriglyceridemia Insulin dependent diabetes mellitus Kidney stones Primary cancer of skin of shoulder Skin cancer of nose Surgical History Surgical History 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 Jackson History of tonsillectomy Family History Family History Mother Diabetes mellitus Father , during World War 2 when the patient was a infant War inj:expl bomb-cease Social History Social History Social History: He lives in [place] with his of 60 years. Their daughter and son are healthy. He is a lifelong nonsmoker. Denies drug or alcohol use. Have cats at home. Primary care physician: Dr. Rodney Vila Code status: Full code Surrogate decision maker: Smoking status: Never smoker Second hand tobacco smoke exposure: No Alcohol intake: never Substance use: never Gender identity (if verbalized by the patient): Male Spiritual care concerns: No Meds Home Medications and Allergies Home Medications Medication Instructions Recorded Confirmed Type donepezil 10 mg PO HS 09/30/20 01/20/21 History rosuvastatin 20 mg PO DAILY 09/30/20 01/20/21 History Tresiba FlexTouch U-200 44 unit SUBCUT QPM 12/09/20 01/20/21 History carvedilol 12.5 mg PO DAILY 12/09/20 01/20/21 History insulin lispro 30 unit SUBCUT AC 12/09/20 01/20/21 History amlodipine [Norvasc] 5 mg PO QAM #30 tablet 12/16/20 01/20/21 Rx hydrocodone-acetaminophen 1 tablet PO Q4H PRN #12 tablet 12/16/20 01/20/21 Rx levetiracetam [Keppra] 500 mg PO BID #60 tablet 12/16/20 01/20/21 Rx polyethylene glycol 3350 [Miralax] 17 g PO QAM #30 ea 12/16/20 01/20/21 Rx tolnaftate 1 applic TOPICAL PRN PRN #45 g 12/16/20 01/20/21 Rx cholecalciferol (vitamin D3) 125 mcg PO EVERY OTHER DAY 01/20/21 01/20/21 History [Vitamin D3] magnesium oxide 500 mg PO EVERY OTHER DAY 01/20/21 01/20/21 History potassium chloride 15 meq PO EVERY OTHER DAY 01/20/21 01/20/21 History vitamin B complex 1 cap PO EVERY OTHER DAY 01/20/21 01/20/21 History vitamin B complex [B 1 tablet PO DAILY 01/20/21 01/20/21 History Complex-Vitamin B12] amoxicillin-pot clavulanate 1 tablet PO Q8HR #72 tablet 01/24/21 Rx [Augmentin] docosanol [Abreva] 1 applic TOPICAL 5 TIMES DAILY #6 g 01/24/21 Rx doxycycline hyclate 100 mg PO Q12HR #48 tablet 01/24/21 Rx famotidine 20 mg PO
--- NOTE | 2021-06-16 09:11 | PM.IMHP ---
H&P: HPI History of Present Illness Date/Time: 06/16/21 09:11 Chief Complaint: Left DFU Narrative: 80-year-old male follows up in [facility] today 4 months status post left diabetic foot debridement and graft application. He has completed a course of Amnioexcel grafting. His has been performing daily dressing changes in the interim. No new concerns today. No new signs of infection. Awaiting custom orthotics/depth shoes currently. 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 Jackson History of tonsillectomy Family History Family History Mother Diabetes mellitus Father , during World War 2 when the patient was a War inj:expl bomb-cease Social History Social History Social History: He lives in [place] with his of 60 years. Their daughter and son are healthy. He is a lifelong nonsmoker. Denies drug or alcohol use. Have cats at home. Primary care physician: Dr. Rodney Vila Code status: Full code Surrogate decision maker: Smoking status: Never smoker Second hand tobacco smoke exposure: No Alcohol intake: never Substance use: never Gender identity (if verbalized by the patient): Male Spiritual care concerns: No Meds Home Medications and Allergies Home Medications Medication Instructions Recorded Confirmed Type donepezil 10 mg PO HS 09/30/20 01/20/21 History rosuvastatin 20 mg PO DAILY 09/30/20 01/20/21 History Tresiba FlexTouch U-200 44 unit SUBCUT QPM 12/09/20 01/20/21 History carvedilol 12.5 mg PO DAILY 12/09/20 01/20/21 History insulin lispro 30 unit SUBCUT AC 12/09/20 01/20/21 History amlodipine [Norvasc] 5 mg PO QAM #30 tablet 12/16/20 01/20/21 Rx hydrocodone-acetaminophen 1 tablet PO Q4H PRN #12 tablet 12/16/20 01/20/21 Rx levetiracetam [Keppra] 500 mg PO BID #60 tablet 12/16/20 01/20/21 Rx polyethylene glycol 3350 [Miralax] 17 g PO QAM #30 ea 12/16/20 01/20/21 Rx tolnaftate 1 applic TOPICAL PRN PRN #45 g 12/16/20 01/20/21 Rx cholecalciferol (vitamin D3) 125 mcg PO EVERY OTHER DAY 01/20/21 01/20/21 History [Vitamin D3] magnesium oxide 500 mg PO EVERY OTHER DAY 01/20/21 01/20/21 History potassium chloride 15 meq PO EVERY OTHER DAY 01/20/21 01/20/21 History vitamin B complex 1 cap PO EVERY OTHER DAY 01/20/21 01/20/21 History vitamin B complex [B 1 tablet PO DAILY 01/20/21 01/20/21 History Complex-Vitamin B12] amoxicillin-pot clavulanate 1 tablet PO Q8HR #72 tablet 01/24/21 Rx [Augmentin] docosanol [Abreva] 1 applic TOPICAL 5 TIMES DAILY #6 g 01/24/21 Rx doxycycline hyclate 100 mg PO Q12HR #48 tablet 01/24/21 Rx famotidine 20 mg PO Q12HR #60 tabl
--- NOTE | 2021-07-04 09:34 | PM.IMHP ---
H&P: [facility] History of Present Illness Date/Time: 07/04/21 09:34 Chief Complaint: Left diabetic foot ulcer Narrative: 81-year-old male follows up in [facility] today 5 months status post left diabetic foot debridement and graft application. He has completed a course of Amnioexcel grafting. His has been performing daily dressing changes in the interim. No new concerns today. No new signs of infection. Currently wearing custom orthotics and shoes. 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 Jackson History of tonsillectomy Family History Family History Mother Diabetes mellitus Father , during World War 2 when the patient was a infant War inj:expl bomb-cease Social History Social History Social History: He lives in [place] with his of 60 years. Their daughter and son are healthy. He is a lifelong nonsmoker. Denies drug or alcohol use. Have cats at home. Primary care physician: Dr. Rodney Vila Code status: Full code Surrogate decision maker: Smoking status: Never smoker Second hand tobacco smoke exposure: No Alcohol intake: never Substance use: never Gender identity (if verbalized by the patient): Male Spiritual care concerns: No Meds Home Medications and Allergies Home Medications Medication Instructions Recorded Confirmed Type donepezil 10 mg PO HS 09/30/20 01/20/21 History rosuvastatin 20 mg PO DAILY 09/30/20 01/20/21 History Tresiba FlexTouch U-200 44 unit SUBCUT QPM 12/09/20 01/20/21 History carvedilol 12.5 mg PO DAILY 12/09/20 01/20/21 History insulin lispro 30 unit SUBCUT AC 12/09/20 01/20/21 History amlodipine [Norvasc] 5 mg PO QAM #30 tablet 12/16/20 01/20/21 Rx hydrocodone-acetaminophen 1 tablet PO Q4H PRN #12 tablet 12/16/20 01/20/21 Rx levetiracetam [Keppra] 500 mg PO BID #60 tablet 12/16/20 01/20/21 Rx polyethylene glycol 3350 [Miralax] 17 g PO QAM #30 ea 12/16/20 01/20/21 Rx tolnaftate 1 applic TOPICAL PRN PRN #45 g 12/16/20 01/20/21 Rx cholecalciferol (vitamin D3) 125 mcg PO EVERY OTHER DAY 01/20/21 01/20/21 History [Vitamin D3] magnesium oxide 500 mg PO EVERY OTHER DAY 01/20/21 01/20/21 History potassium chloride 15 meq PO EVERY OTHER DAY 01/20/21 01/20/21 History vitamin B complex 1 cap PO EVERY OTHER DAY 01/20/21 01/20/21 History vitamin B complex [B 1 tablet PO DAILY 01/20/21 01/20/21 History Complex-Vitamin B12] amoxicillin-pot clavulanate 1 tablet PO Q8HR #72 tablet 01/24/21 Rx [Augmentin] docosanol [Abreva] 1 applic TOPICAL 5 TIMES DAILY #6 g 01/24/21 Rx doxycycline hyclate 100 mg PO Q12HR #48 tablet 01/24/21 Rx famotidine 20 mg PO Q1
== END 2021-07-17 23:59 | disposition home or self-care (01) ==
LOC: ANHWOC 07:57
PROVIDERS: PCP Internal Medicine; Visit Provider Nurse Practitioner Family
DX: Z48.00 Encounter for change or removal of nonsurgical wound dressing (principal); E11.621 Type 2 diabetes mellitus with foot ulcer; L97.529 Non-pressure chronic ulcer of other part of left foot with unspecified severity
CPT/HCPCS: 15275; 99212; 99213; G0463; Q4137

== ENCOUNTER 2021-07-12 03:49 | Inpatient (IN) | payer MEDICARE, SELFPAY ==
[2021-07-12] VITALS (42 sets, daily range): BP systolic 134–195; BP diastolic 71–105; PULSE 74–98; RESP 16–30; TEMP 36.4–36.9; O2SAT 95–100; BMI 34.2
--- NOTE | 2021-07-12 | ECHO_ITS ---
Patient Info Name: Nikita Cordova Age: 81 years : 1940 Gender: Male Ht: 74 in Wt: 266 lbs BSA: 2.55 m2 HR: 93 bpm BP: 167 / 74 mmHg Heart Rhythm: Sinus Rhythm Technical Quality: Fair Exam Date: 07/12/2021 1:51 PM Exam Location: [facility] Patient Status: Inpatient Admit Date: 07/12/2021 Staff Ordering Physician: Ehsan Tam MD Senior Environmental Consultant: Heather Bonilla RDCS Attending Provider: Blanche Samano MD Exam Type: CA echo dop color flow w con Study Info Indications - new onset CHF, Elevated troponin Complete two-dimensional, color flow and Doppler transthoracic echocardiogram is performed with contrast to opacify the left ventricle and to improve the deliniation of the left ventricle endocardial borders. Contrast/Agitated Saline Contrast/Ag. Saline: Definity Amount: 2.00 ml Administered By: Heather Bonilla RDCS Existing IV Access: Yes IV Access Condition: patent with no signs of infiltration Summary 1. Left ventricular chamber dimension is mildly enlarged. 2. Left ventricular systolic function is moderately reduced, estimated at 40-45%. 3. There is mildly increased left ventricular wall thickness. 4. The left ventricular diastolic function is grade I diastolic dysfunction. 5. The apex, inferior wall, anterior wall, mid anterolateral wall, and mid anteroseptal are hypokinetic. 6. Left atrial chamber dimension is mildly enlarged. 7. There is mild mitral valve regurgitation. 8. There is mild tricuspid valve regurgitation. 9. The mitral valve has thickened leaflets and calcified leaflets. Left Ventricle Left ventricular chamber dimension is mildly enlarged. Left ventricular systolic function is moderately reduced, estimated at 40-45%. There is mildly increased left ventricular wall thickness. The left ventricular diastolic function is grade I diastolic dysfunction. The apex, inferior wall, anterior wall, mid anterolateral wall, and mid anteroseptal are hypokinetic. All other holm appear normal. Right Ventricle Right ventricular chamber dimension is normal. Right ventricular systolic function is normal. Left Atria Left atrial chamber dimension is mildly enlarged. Right Atria Right atrial chamber dimension is normal. Atrial Septum Intact interatrial septum visualized by color flow imaging. Aortic Valve The aortic valve is trileaflet. There is mild aortic valve sclerosis. There is no aortic valve stenosis. There is trace aortic valve regurgitation. Pulmonic Valve The pulmonic valve is normal. There is no pulmonic valve stenosis. There is trace pulmonic regurgitation. Mitral Valve The mitral valve has thickened leaflets and calcified leaflets. There is no mitral valve stenosis. There is mild mitral valve regurgitation. Tricuspid Valve The tricuspid valve leaflets are normal. There is no significant tricuspid valve stenosis. There is mild tricuspid valve regurgitation. No pulmonary hypertension, estimated pulmonary arterial systolic pressure is 24 mmHg. Pericardium/Pleural The pericardium appears normal. There is no pericardial effusion. Inferior Vena Cava Normal inferior vena cava with >50% collapse upon inspiration consistent with normal right atrial pressure, 10 mmHg. Aorta The aortic root size at the sinus of Valsalva is mildly dilated. Left Ventricular Outflow Tract
--- NOTE | ~2021-07-12 | CT_ITS ---
EXAMINATION:CT diagnostic chest wo con DATE: 07/15/2021 10:27 INDICATION: Respiratory failure. TECHNIQUE: Computed tomography (CT) of the chest was performed without intravenous contrast. Automate d exposure control and iterative reconstruction technique were employed. The dose-length product (DLP ) was 1039.76 mGy-cm. COMPARISON: Chest CT 06/30/2007, CT abdomen and pelvis 09/23/2020, thyroid ultrasound 07/17/2007 FINDINGS: There is smooth septal thickening in the lungs, consistent with mild pulmonary edema. There are small pleural effusions. There is dependent atelectasis bilaterally. There are reticular calcifi cations in the lower lobes, consistent with chronic interstitial lung disease. Calcified pulmonary no dules and calcified hilar and mediastinal lymph nodes are consistent with old granulomatous disease. There is a chronic 3.1 cm nodule in left thyroid lobe, likely not clinically significant. The heart s ize is normal. There are coronary artery calcifications. No pericardial effusion. A right upper extre mity peripherally inserted central venous catheter (PICC) is seen with tip in the proximal right atri um. The endotracheal tube tip is in expected position above the zohaib. The nasogastric tube tip is i n the stomach. Calcifications in the spleen are consistent with old granulomatous disease. There are acute fractures of anterior right second-fifth ribs. There are acute fractures of anterior left secon d-fourth ribs. There is severe thoracic spondylosis. IMPRESSION: 1. Mild pulmonary edema. 2. Small pleural effusions. 3. Mild chronic interstitial lung disease. 4. Acute bilateral rib fractures. Reviewed, dictated and finalized at location A.
--- NOTE | ~2021-07-12 | XR_ITS ---
EXAMINATION: XR chest 1V portable INDICATION: Shortness of breath TECHNIQUE: Portable AP chest at 0409 hours COMPARISON: 01/22/2021 FINDINGS: There are minimal opacities of the mid and lower lung zones. No definite pleural effusion o r pneumothorax is identified. The cardiomediastinal silhouette is normal. Osteoarthritis is noted in the shoulders. IMPRESSION: 1. Opacities of the mid and lower lung zones, consistent with atelectasis versus pneumonia versus pul monary edema. Reviewed, dictated and finalized at location A. IMPRESSION: 1. Opacities of the mid and lower lung zones, consistent with atelectasis versu s pneumonia versus pulmonary edema.
--- NOTE | ~2021-07-12 | CT_ITS ---
EXAMINATION: CT cervical spine wo con DATE: 07/13/2021 18:49 INDICATION: Fall. TECHNIQUE: Computed tomography (CT) of the cervical spine was performed without intravenous contrast. Automated exposure control and iterative reconstruction technique were employed. Exam dose: 630.02 mGy-cm total exam DLP. COMPARISON: None FINDINGS: The examination is limited due to motion. Fracture, dislocation or locked facet. No prevertebral soft tissue swelling. There are 3.5 mm retrolisthesis and severe degenerative disease at C3-4. There is 2.4 mm retrolisthesis and severe degenerative disease at C4-5. There is fusion at the C6-7 interspace. Degenerative changes at the apophyseal joints. There is uncovertebral joint spurring at multiple leve ls, particularly severe on the left at C3-4 and on the right at C3 C4-5.. ET and NG tubes are noted. IMPRESSION: Limited examination due to motion Severe cervical spondylosis No apparent fracture, dislocation or locked facet Reviewed, dictated and finalized at Location A. Reviewed, dictated and finalized at location A.
--- NOTE | ~2021-07-12 | US_ITS ---
EXAMINATION: US venous doppler [facility] DATE: 07/14/2021 11:29 INDICATION: Left lower limb swelling TECHNIQUE: Morin scale images without and with compression and Doppler images of the left lower extrem ity veins were obtained. COMPARISON: 01/21/2021 FINDINGS: The left common femoral vein, profunda femoral vein, femoral vein, popliteal vein, peroneal trunk, posterior tibial veins, and greater saphenous vein are patent. IMPRESSION: 1. Patent left lower extremity veins. No evidence of deep venous thrombosis. Reviewed, dictated and finalized at location A.
--- NOTE | ~2021-07-12 | XR_ITS ---
XR abdomen NG/feed tube insert DATE: 07/13/2021 17:10 INDICATION: Orogastric tube placement TECHNIQUE: Portable AP view on 07/13/2021 at 1704 hours COMPARISON: None FINDINGS: NG tube is present in the gastric fundus, the proximal side-port 9 cm distal to the diaphra gmatic hiatus. IMPRESSION: Orogastric tube in gastric fundus Reviewed, dictated and finalized at Location A. Reviewed, dictated and finalized at location A.
--- NOTE | ~2021-07-12 | XR_ITS ---
EXAMINATION: XR chest 1V portable DATE: 07/15/2021 05:47 INDICATION: Cardiac arrest. TECHNIQUE: A single frontal view of the chest was obtained. COMPARISON: Chest single view 07/14/2021, CT abdomen and pelvis 09/23/2020 FINDINGS: The lung volumes are small. There are airspace opacities in right perihilar region and at l eft lung base. No pleural effusion or pneumothorax. The heart size is normal. Calcified mediastinal l ymph nodes are consistent with old granulomatous disease. The endotracheal tube tip is 4.8 cm above t he zohaib. The nasogastric tube tip is beyond the inferior margin of the radiograph, but at least to the stomach. A right upper extremity peripherally inserted central venous catheter (PICC) is seen wit h tip at the superior cavoatrial junction. IMPRESSION: 1. Small lung volumes with stable airspace opacities in right perihilar region and left lung base, co nsistent with atelectasis versus pneumonia. Reviewed, dictated and finalized at location A. IMPRESSION: 1. Small lung volumes with stable airspace opacities in right perihilar region and left lung base, consistent with atelectasis versus pneumonia.
--- NOTE | ~2021-07-12 | CT_ITS ---
EXAMINATION: CT brain wo con DATE: 07/13/2021 18:48 INDICATION: Fall. Cardiopulmonary arrest. Involuntary muscle spasms. TECHNIQUE: Computed tomography (CT) of the head was performed without intravenous contrast. The mA wa s adjusted according to patient size. Iterative reconstruction technique was employed. Exam dose: 75 6.67 mGy-cm total exam DLP. COMPARISON: 01/20/2021 CT brain FINDINGS: Examination is very limited due to prominent motion artifact. Repeat examination is recomme nded when the patient's condition permits. No obvious intracranial mass lesion or hemorrhage, midline shift or mass effect is noted. Very promin ent atherosclerotic calcification of the carotid siphon internal carotid arteries and some vertebral artery calcification. No obvious subdural or epidural hematoma. No apparent skull fracture. IMPRESSION: Very limited examination due to motion artifact, without obvious acute significant intra cranial finding or skull fracture Reviewed, dictated and finalized at Location A. Reviewed, dictated and finalized at location A. IMPRESSION: Very limited examination due to motion artifact, without obvious a cute significant intracranial finding or skull fracture
--- NOTE | ~2021-07-12 | XR_ITS ---
EXAMINATION: XR chest 1V portable INDICATION: Cardiac arrest TECHNIQUE: Portable AP chest at 0542 hours COMPARISON: 07/13/2021 FINDINGS: The endotracheal tube ends approximately 4.3 cm above the zohaib. The nasogastric tube is f ollowed as far as the stomach. Its tip is beyond the inferior margin of the radiograph. There is a sm all left pleural effusion. Minimal airspace opacities are present in the left lung base. There is no pneumothorax. The cardiomediastinal silhouette is normal for technique. IMPRESSION: 1. Small left pleural effusion. 2. Left basilar airspace opacity, consistent with atelectasis versus pneumonia. Reviewed, dictated and finalized at location A.
--- NOTE | ~2021-07-12 | XR_ITS ---
XR chest ET placement DATE: 07/13/2021 17:10 INDICATION: Endotracheal tube placement TECHNIQUE: Portable AP chest on 07/13/2021 at 1703 hours COMPARISON: 07/12/2021 portable AP chest FINDINGS: ET tube in satisfactory position 5 cm above zohaib. NG tube in stomach. The lungs appear clear of infiltrate or consolidation. Pulmonary vascular and interstitial prominence appear resolved since 07/12/2021. No pleural effusion or pneumothorax is evident. Heart size appears within normal limits. Aortic arch calcification. Osteoarthritis at included right glenohumeral joint. Osteopenia. IMPRESSION: ET and NG tubes in satisfactory position No active cardiopulmonary disease is evident Reviewed, dictated and finalized at Location A. Reviewed, dictated and finalized at location A.
--- NOTE | 2021-07-12 03:59 | ECG_ITS ---
Measurements Intervals [place] Rate: 93 P: 45 RI: 201 QRS: 54 QRSD: 105 T: 32 QT: 371 QTc: 462 Interpretive Statements SINUS RHYTHM WITH FREQUENT VENTRICULAR PREMATURE COMPLEXES POSSIBLE ANTERIOR MYOCARDIAL INFARCTION , PROBABLY OLD [30 ms Q WAVE IN V3/V4, OR R < 0.2 mV IN V4] NONSPECIFIC ST ABNORMALITY ABNORMAL ECG COMPARED TO ECG 12/15/2020 09:48:35 NO SIGNIFICANT CHANGES Electronically Signed On 07-12-2021 15:48:54 CDT by Chico Trevino M.D.
--- NOTE | 2021-07-12 04:07 | ED.SOB ---
HPI - SOB/Dyspnea General Chief Complaint: Shortness of Breath/Dyspnea Stated Complaint: SOB Time Seen by Provider: 07/12/21 03:54 Source: patient, family and EMS Mode of arrival: EMS Limitations: no limitations History of Present Illness HPI Narrative: 81-year-old male presents emergency room by EMS secondary to shortness of breath. He states he been feeling short of breath for the last day or so but got progressively worse tonight with his finally convinced him that he need to come to the hospital to get assistance. On EMS arrival the patient was noted to be dyspneic. They gave him a nebulizer treatment and he did state he felt somewhat better afterwards. Patient denies any chest pain. Denies any cough or congestion. No chills or fevers. He denies any prior history of congestive heart failure. He does have a history of hypertension and states lately been having some palpitations from time to time. At this time he is also get swelling to his lower extremities which she states is never had before. Patient is having dyspnea over the last day or so with just walking around his own house. Also noted that when he tries to lay down to sleep he feels short of breath and we were so tonight. Related Data Home Medications Medication Instructions Recorded Confirmed amlodipine 5 mg PO DAILY 07/12/21 07/12/21 carvedilol 12.5 mg PO DAILY 07/12/21 07/12/21 rosuvastatin 20 mg PO HS 07/12/21 07/12/21 Allergies Allergy/AdvReac Type Severity Reaction Status Date / Time No Known Allergies Allergy Verified 07/12/21 03:54 Review of Systems Review of Systems: CONSTITUTIONAL: Denies fever, chills, or sweats. EYES: Denies visual changes, redness, or discharge. ENT: Denies rhinorrhea, congestion, sore throat, or otalgia. CARDIOVASCULAR: Denies any chest pain but does have some occasional palpitations and having some edema in his lower extremities RESPIRATORY: Complaining of being short of breath. No cough. GASTROINTESTINAL: Denies abdominal pain, nausea, vomiting, or diarrhea. GENITOURINARY: Denies dysuria or hematuria. SKIN: Denies rash or itching. MUSCULOSKELETAL: Denies back pain, joint pain, or myalgia. NEUROLOGIC: Denies headache, numbness, or weakness. PSYCHIATRIC: Denies anxiety or depression. 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 Jackson History of tonsillectomy Family History Family History Mother Diabetes mellitus Father , during World War 2 when the patient was a infant War inj:expl bomb-cease Social History Social History Social History: He lives in [place] with his of 60 years. Their daughter and son are healthy. He is a lifelong nonsmoker. Denies drug or alcohol use. Have cats at home. Primary care physician: Dr. Rodney Vila Code status: Full code Surrogate
[2021-07-12] MEDS: LABETALOL HCL INJ 100 MG/20 ML VIAL 10 MG IV PUSH (04:15)
[2021-07-12] MEDS: FUROSEMIDE INJ 40 MG/4 ML VIAL IV PUSH (04:16)
[2021-07-12 04:35] LABS: Basophils Absolute Auto 0.1 K/mm3 (0.0-0.1); Basophils Percent Auto 0.6 % (0.2-1.2); Eosinophils Absolute Auto 0.3 K/mm3 (0-0.3); Eosinophils Percent Auto 2.2 % (0-4.4); Hematocrit 37.9 % (42.0-52.0); Hemoglobin 12.2 g/dL (14.0-18.0); Immature Granulocyte Absolute 0.06 K/mm3 (0.00-0.031); Immature Granulocyte Percent A 0.4 % (0-0.5); Lymphocytes Absolute Auto 2.17 K/mm3 (0.9-3.2); Lymphocytes Percent Auto 16.1 % (18.3-44.2); Mean Corpuscular HGB Conc 32.2 g/dl (32-36); Mean Corpuscular Hemoglobin 31.7 pg (26-34); Mean Corpuscular Volume 98.4 fl (80-100); Mean Platelet Volume 11.8 fl (7.4-10.4); Monocytes Percent Auto 7.2 % (2.6-8.5); Neutrophils Absolute Auto 9.9 K/mm3 (1.3-6.7); Neutrophils Percent Auto 73.5 % (45.5-73.1); Platelet Count Result 207 k/mm3 (150-375); Red Blood Count 3.85 M/mm3 (4.6-6.20); White Blood Count 13.5 K/mm3 (4.5-10.0)
[2021-07-12 04:52] LABS: Alanine Aminotransferase 21 U/L (4-50); Albumin Level 3.9 g/dL (3.5-5.1); Alkaline Phosphatase 89 U/L (38-126); Anion Gap 9 mmol/L (8-16); Aspartate Amino Transferase 38 U/L (17-59); Bilirubin,Total 0.6 mg/dL (0.2-1.3); Blood Urea Nitrogen 23 mg/dL (9-20); Calcium 8.1 mg/dL (8.4-10.2); Carbon Dioxide 23 mmol/L (22-30); Chloride 106 mmol/L (98-107); Estimated CRCL calculation 72 ml/min; Estimated Glomerular Filt Rate > 60; Glucose 238 mg/dL (65-110); NT Pro B Type Natriuretic Pept 1060 pg/mL (5-100); Potassium 4.6 mmol/L (3.4-5.0); Sodium 138 mmol/L (137-145); Troponin I 0.545 ng/mL (0.000-0.034)
[2021-07-12] MEDS: ASPIRIN 81 MG CHEWABLE TABLET 324 MG PO (05:03)
[2021-07-12] MEDS: ENOXAPARIN 100 MG/ML SYRINGE SUB-Q (05:24)
[2021-07-12 06:00] LABS: SARS-CoV-2 RNA PCR Negative
--- NOTE | 2021-07-12 06:37 | ADMGEN ---
This patient, Nikita Cordova, was admitted to IMU Room 205-02 at 0635. Patient/family oriented to hospital policies and general routines including ID bracelet, bed and alarms, visiting hours, pain management, procedures, bathroom and other care routines, personal items, smoking policy, room service/diet, and visiting hours. Information on how to activate the Rapid Response Team has been discussed. Patient/Family are encouraged to report perceived risks to care and to ask questions if they do not understand what they are told or what they should do.
[2021-07-12 08:24] LABS: Glucose Point of Care 279 mg/dl (65-105)
[2021-07-12 10:25] LABS: Troponin I 0.494 ng/mL (0.000-0.034)
--- NOTE | 2021-07-12 10:37 | PC.NURSE ---
[facility] flyer was given to patient.
[2021-07-12 12:13] LABS: Glucose Point of Care 309 mg/dl (65-105)
[2021-07-12] MEDS: amLODIPine BESYLATE 5 MG TABLET PO (12:15)
[2021-07-12] MEDS: INSULIN ASPART (*BKC) 100 UNITS/ML SUB-Q ×2 (12:15→17:38)
[2021-07-12] MEDS: carvediloL 12.5 MG TABLET PO ×2 (12:15→20:54)
[2021-07-12 12:33] LABS: Troponin I 0.453 ng/mL (0.000-0.034)
[2021-07-12] MEDS: IPRATROPIUM BR 0.02% INH SOLN 0.5 MG/2.5 ML VIAL INHALATION ×2 (13:07→20:53)
[2021-07-12] MEDS: ALBUTEROL SULFATE NEB 2.5 MG/0.5 ML INH INHALATION ×2 (13:07→20:53)
--- NOTE | 2021-07-12 13:35 | PM.CNCAR ---
Assessment and Plan Assessment and plan (1) Essential hypertension: Onset Date: Unknown Code(s): I10 - Essential (primary) hypertension Status: Acute Assessment and Plan: Uncontrolled. Will increase his carvedilol to 12.5 mg p.o. b.i.d.. Continue amlodipine. He is not on Michael or an Arb and I am uncertain as to why. His medications in general are not reconciled properly. Will need to clarify his home medications and resume. (2) Dementia: Code(s): F03.90 - Unspecified dementia without behavioral disturbance Status: Acute (3) CHF (congestive heart failure): Qualifiers: Heart failure chronicity: acute Heart failure type: unspecified Qualified Code(s): I50.9 - Heart failure, unspecified Code(s): I50.9 - Heart failure, unspecified Status: Acute Assessment and Plan: As detailed below, echocardiogram, low-salt diet, furosemide 40 mg IV daily. He does have shortness of breath which may be related underlying pneumonia also. Recommend antibiotics but will defer to hospitalist. CHF is probably systolic in etiology. Await echo results. (4) Hypertension: Qualifiers: Hypertension type: primary hypertension Qualified Code(s): I10 - Essential (primary) hypertension Code(s): I10 - Essential (primary) hypertension Status: Acute (5) Coronary artery disease: Code(s): I25.10 - Atherosclerotic heart disease of [place] coronary artery without angina pectoris Status: Acute Assessment and Plan: He does have known coronary disease and elevated troponins. Possibly recent non-STEMI versus heart failure versus both. 2D echocardiogram Doppler reorder an viewed. Intake and output and daily weights. Will clarify medications. Will start isosorbide mononitrate 30 mg p.o. daily. Unless contraindicated he should be on aspirin 81 mg p.o. daily at minimum but he does have a recent fall history and possible subdural hematoma. This needs to be clarified before resuming. I did try to talk to his without answer. History of Present Illness History of Present Illness Consult date/time: 07/12/21 13:35 Requesting physician: Ehsan Tam MD Consult reason: chest pain and congestive heart failure Reason For Visit: CHF/Non STEMI/Hypertension Narrative: Date of service 07/12/2021 Reason consultation: CHF, CAD, on non-STEMI Requesting provider: Dr. Tam History patient is a 81-year-old male who has a history of CAD. He is a patient of Dr. Jackson. He underwent a coronary angiogram last July and transfer to [facility] for multivessel PCI versus CABG. Patient did undergo multivessel PCI. He does have other confounding variables including dementia, peripheral vascular disease, slowly healing foot ulcers. Patient states that he has been short of breath more recently. There is no chest pain at but he does describe a ?ache? in his chest at times but does not have it currently. Yesterday though he states that he had the ache in his chest as well as the dyspnea and at the insistence of his , came to hospital for further evaluation. EMS arrived he was noted to be short of breath. He was given nebulizer treatment with some improvement reportedly. BNP is elevated his troponin was elevated at presentation. It has been down trending. He currently states that he feels okay and has no chest pain at present. No syncope, presyncope, paroxysmal nocturnal dyspnea, orthopnea, edema or palpitations. Review of Systems Review of Systems: All systems reviewed & are unremarkable except as noted in HPI and below Constitutional: Constitutional: Denies weakness Eyes: Eyes: Denies blurry vision ENT: Reports Normal hearing present Cardiovascular: Cardiovascular: Reports chest pain Respiratory: Respiratory: Reports dyspnea Gastrointestinal: Gastrointestinal: Denies abdominal pain Genitourinary: Genitourinary: Denies dysuria Musculoskeletal:
[2021-07-12] MEDS: PERFLUTREN LIPID MICROSPHERES 1.5 ML VIAL DILUTED TO 10 ML TOTAL VOLUME IV PUSH (15:47)
--- NOTE | 2021-07-12 15:48 | IVDEFINITY ---
Prior to administration of IV Definity the patient was educated on the risks and benefits of the imaging enhancing agent including potential adverse side effects. The patient verbalized understanding. Allergies were verified. No exclusion criteria were identified and at least one of the following inclusion criteria were met: 1) physician request, 2) patient technically difficult to image (per the [place] [employer] guidelines of two or more segments not discernable within the apical view), or 3) questionable left ventricular function. ?
[2021-07-12 15:54] LABS: Glucose Point of Care 237 mg/dl (65-105)
[2021-07-12] MEDS: ASPIRIN 81 MG CHEWABLE TABLET PO (17:37)
--- NOTE | 2021-07-12 17:37 | PM.IMHP ---
H&P: HPI History of Present Illness Date/Time: 07/12/21 17:37 ED-HPI Narrative: 81-year-old male presents emergency room by EMS secondary to shortness of breath. He states he been feeling short of breath for the last day or so but got progressively worse tonight with his finally convinced him that he need to come to the hospital to get assistance. On EMS arrival the patient was noted to be dyspneic. They gave him a nebulizer treatment and he did state he felt somewhat better afterwards. Patient denies any chest pain. Denies any cough or congestion. No chills or fevers. He denies any prior history of congestive heart failure. He does have a history of hypertension and states lately been having some palpitations from time to time. At this time he is also get swelling to his lower extremities which she states is never had before. Patient is having dyspnea over the last day or so with just walking around his own house. Also noted that when he tries to lay down to sleep he feels short of breath and we were so tonight. 07/12/2021 interval history: patient is 81-year-old male presented with a complaint of shortness of breath swelling of lower extremities, his BNP is elevated on 1060 patient was started on IV Lasix, will do the cardiac echo to further evaluate, will be seen finish carpenter and further recommendation to follow, the PT OT evaluate the patient. Chief Complaint: shortness of breath Review of Systems Review of Systems: All systems reviewed & are unremarkable except as noted in HPI and below PMFSH Past Medical History Medical History (Updated 07/13/21 @ 10:59 by Chico Trevino MD) BPH (benign prostatic hyperplasia) C4 cervical fracture Coronary artery disease Dementia Diabetic peripheral neuropathy Diabetic retinopathy Diabetic ulcer of left ankle Dyslipidemia Essential hypertension (Unknown) Hypertriglyceridemia Insulin dependent diabetes mellitus Kidney stones Primary cancer of skin of shoulder Skin cancer of nose Surgical History Surgical History 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 Jackson History of tonsillectomy Family History Family History Mother Diabetes mellitus Father , during World War 2 when the patient was a infant War inj:expl bomb-cease Social History Social History Social History: He lives in [place] with his of 60 years. Their daughter and son are healthy. He is a lifelong nonsmoker. Denies drug or alcohol use. Have cats at home. Primary care physician: Dr. Rodney Vila Code status: Full code Surrogate decision maker: Smoking status: Never smoker Second hand tobacco smoke exposure: No Alcohol intake: never Substance use: never Gender identity (if verbalized by the patient): Male Spiritual care concerns: No Meds Home Medications and Allergies Home Medications Medication Instructions Recorded Confirmed Type amlodipine 5 mg PO DAILY 07/12/21 07/12/21 History aspirin [Adult Aspirin] 81 mg PO DAILY 07/12/21 07/12/21 History carvedilol 12.5 mg PO DAILY 07/12/21 07/12/21 History insulin degludec [Tresiba 44 unit SUBCUT HS 07/12/21 07/12/21 History FlexTouch U-200] insulin lispro See Rx Instructions .ROUTE .COMPLEX 07/12/21 07/12/21 History rosuvastatin 20
[2021-07-12] MEDS: ROSUVASTATIN 10 MG TABLET 20 MG PO (20:55)
[2021-07-13] VITALS (29 sets, daily range): BP systolic 98–170; BP diastolic 58–106; PULSE 44–104; RESP 16–24; TEMP 36.6–37.6; O2SAT 97–100
[2021-07-13 00:15] LABS: Glucose Point of Care 273 mg/dl (65-105)
[2021-07-13] MEDS: ALBUTEROL SULFATE NEB 2.5 MG/0.5 ML INH INHALATION ×3 (02:01→19:59)
[2021-07-13] MEDS: IPRATROPIUM BR 0.02% INH SOLN 0.5 MG/2.5 ML VIAL INHALATION ×3 (02:02→19:59)
[2021-07-13 05:00] LABS: Hematocrit 32.4 % (42.0-52.0); Hemoglobin 11.3 g/dL (14.0-18.0); Mean Corpuscular HGB Conc 34.9 g/dl (32-36); Mean Corpuscular Hemoglobin 31.9 pg (26-34); Mean Corpuscular Volume 91.5 fl (80-100); Mean Platelet Volume 11.4 fl (7.4-10.4); Platelet Count Result 207 k/mm3 (150-375); Red Blood Count 3.54 M/mm3 (4.6-6.20); Red Cell Distribution Width 12.4 % (11.5-14.5); White Blood Count 9.7 K/mm3 (4.5-10.0)
[2021-07-13 05:20] LABS: Anion Gap 7 mmol/L (8-16); Blood Urea Nitrogen 25 mg/dL (9-20); Calcium 8.2 mg/dL (8.4-10.2); Carbon Dioxide 25 mmol/L (22-30); Chloride 103 mmol/L (98-107); Estimated CRCL calculation 67 ml/min; Estimated Glomerular Filt Rate > 60; Glucose 269 mg/dL (65-110); Sodium 135 mmol/L (137-145)
[2021-07-13 08:22] LABS: Glucose Point of Care 276 mg/dl (65-105)
[2021-07-13] MEDS: amLODIPine BESYLATE 5 MG TABLET PO (08:55)
[2021-07-13] MEDS: ASPIRIN 81 MG CHEWABLE TABLET PO (08:55)
[2021-07-13] MEDS: carvediloL 12.5 MG TABLET PO (08:55)
--- NOTE | 2021-07-13 10:57 | PM.PNCARD ---
Progress Note: A&P Assessment and Plan (1) Essential hypertension: Onset Date: Unknown Code(s): I10 - Essential (primary) hypertension Status: Acute Assessment and Plan: Uncontrolled. Will further increase his carvedilol 25 mg p.o. b.i.d.. Continue amlodipine. Will add losartan 25 mg p.o. daily. (2) Dementia: Code(s): F03.90 - Unspecified dementia without behavioral disturbance Status: Acute (3) CHF (congestive heart failure): Qualifiers: Heart failure chronicity: acute Heart failure type: unspecified Qualified Code(s): I50.9 - Heart failure, unspecified Code(s): I50.9 - Heart failure, unspecified Status: Acute Assessment and Plan: As detailed below, echocardiogram, low-salt diet, DC IV furosemide He does have shortness of breath which may be related underlying pneumonia also. Recommend antibiotics but will defer to hospitalist. CHF is probably systolic in etiology. Increase carvedilol and added losartan as detailed above (4) Hypertension: Qualifiers: Hypertension type: primary hypertension Qualified Code(s): I10 - Essential (primary) hypertension Code(s): I10 - Essential (primary) hypertension Status: Acute (5) Coronary artery disease: Code(s): I25.10 - Atherosclerotic heart disease of [place] coronary artery without angina pectoris Status: Acute Assessment and Plan: He does have known coronary disease and elevated troponins. Possibly recent non-STEMI versus heart failure versus both. 2D echocardiogram Doppler reorder an viewed. Intake and output and daily weights. Will clarify medications. Will start isosorbide mononitrate 30 mg p.o. daily. Continue aspirin. This needs to be clarified before resuming. I did try to talk to his without answer. (6) Cardiomyopathy: Code(s): I42.9 - Cardiomyopathy, unspecified Status: Acute Assessment and Plan: [id number] cardiomyopathy. Subjective Date/time seen: 07/13/21 10:57 Interval history: 81-year-old admitted with shortness of breath Date of service 07/13/2021: Feels about at baseline today. Does not have any shortness of breath or chest pain Review of Systems Review of Systems: All systems reviewed & are unremarkable except as noted in HPI and below Constitutional: Constitutional: Denies fatigue, Denies headache(s) and Denies weakness Eyes: Eyes: Denies blurry vision ENT: Reports Normal hearing present, Denies headache(s) and Denies neck pain Cardiovascular: Cardiovascular: Reports chest pain and Reports dyspnea Respiratory: Respiratory: Reports dyspnea Gastrointestinal: Gastrointestinal: Denies abdominal pain Genitourinary: Genitourinary: Denies dysuria Musculoskeletal: Musculoskeletal: Denies neck pain Integumentary/Breasts: Skin/Breast: Denies dry skin and Reports wounds Neurologic: Reports Normal hearing present, Denies headache(s) and Denies weakness Psychiatric: Psychiatric: Denies anxiety Endocrine: Endocrine: Denies fatigue Hematologic/Lymphatic: Hematologic/Lymphatic: Denies easy bleeding Allergic/Immunologic: Allergic/Immunologic: Denies GI upset with certain foods Exam Narrative: Patient awake alert. Appears stated age Const: General: comfortable and no acute distress HENMT: General nose exam: Normal nares present Eyes: Sclera: sclerae normal Neck: Neck: supple and no JVD Chest: Other: No reproducible chest wall pain to palpation Resp: Auscultation: clear to auscultation bilaterally Cardio: Rate: regular rate Rhythm: regular rhythm GI: Inspection: non-distended Auscultation: normal bowel sounds Skin: General skin exam: normal color Neuro: Cranial nerves: Yes Normal hearing present Cognition (Neuro): normal cognition Speech: normal speech Extrem: General: edema (Trivial bilateral lower extremity edema) Psych: Mental Status: mental status grossly normal Objective
[2021-07-13 11:30] LABS: Glucose Point of Care 266 mg/dl (65-105)
[2021-07-13] MEDS: ISOSORBIDE MONONITRATE 30 MG TAB.ER.24H PO (11:46)
[2021-07-13] MEDS: INSULIN ASPART (*BKC) 100 UNITS/ML SUB-Q ×3 (11:46→23:52)
--- NOTE | 2021-07-13 12:38 | PC.NURSE ---
This patient, Nikita Cordova, was transferred to [facility] on 07/13/21 at 1238. Personal belongings sent with patient. Report given to Myesha DIAZ. Appropriate documentation sent with patient.
--- NOTE | 2021-07-13 12:40 | PC.NURSE ---
This patient, Nikita Cordova, was received from [facility] on 07/13/21 at 1240. Patient/family oriented to unit policies and routines
--- NOTE | 2021-07-13 14:54 | PM.IMPN ---
Progress Note: A&P Assessment and Plan (1) CHF (congestive heart failure): Qualifiers: Heart failure chronicity: acute Heart failure type: unspecified Qualified Code(s): I50.9 - Heart failure, unspecified Code(s): I50.9 - Heart failure, unspecified Status: Acute Assessment and Plan: ED-HPI Narrative: 81-year-old male presents emergency room by EMS secondary to shortness of breath. He states he been feeling short of breath for the last day or so but got progressively worse tonight with his finally convinced him that he need to come to the hospital to get assistance. On EMS arrival the patient was noted to be dyspneic. They gave him a nebulizer treatment and he did state he felt somewhat better afterwards. Patient denies any chest pain. Denies any cough or congestion. No chills or fevers. He denies any prior history of congestive heart failure. He does have a history of hypertension and states lately been having some palpitations from time to time. At this time he is also get swelling to his lower extremities which she states is never had before. Patient is having dyspnea over the last day or so with just walking around his own house. Also noted that when he tries to lay down to sleep he feels short of breath and we were so tonight. 07/12/2021 interval history: patient is 81-year-old male presented with a complaint of shortness of breath swelling of lower extremities, his BNP is elevated on 1060 patient was started on IV Lasix, will do the cardiac echo to further evaluate, will be seen forge operator helper and further recommendation to follow, the PT OT evaluate the patient. patient is admitted as observation status. (2) Hypertension: Qualifiers: Hypertension type: primary hypertension Qualified Code(s): I10 - Essential (primary) hypertension Code(s): I10 - Essential (primary) hypertension Status: Acute Assessment and Plan: continue home regimen and monitor (3) Type 2 diabetes mellitus with hyperglycemia, with long-term current use of insulin: Onset Date: Unknown Code(s): E11.65 - Type 2 diabetes mellitus with hyperglycemia; Z79.4 - exterminator (current) use of insulin Status: Chronic Assessment and Plan: will continue home regimen and monitor with sliding scale and adjust insulin as needed Subjective Date/time seen: 07/13/21 14:54 ED-HPI Narrative: 81-year-old male presents emergency room by EMS secondary to shortness of breath. He states he been feeling short of breath for the last day or so but got progressively worse tonight with his finally convinced him that he need to come to the hospital to get assistance. On EMS arrival the patient was noted to be dyspneic. They gave him a nebulizer treatment and he did state he felt somewhat better afterwards. Patient denies any chest pain. Denies any cough or congestion. No chills or fevers. He denies any prior history of congestive heart failure. He does have a history of hypertension and states lately been having some palpitations from time to time. At this time he is also get swelling to his lower extremities which she states is never had before. Patient is having dyspnea over the last day or so with just walking around his own house. Also noted that when he tries to lay down to sleep he feels short of breath and we were so tonight. 07/12/2021 interval history: patient is 81-year-old male presented with a complaint of shortness of breath swelling of lower extremities, his BNP is elevated on 1060 patient was started on IV Lasix, will do the cardiac echo to further evaluate, will be seen forge operator helper and further recommendation to follow, the PT OT evaluate the patient. 07/13/2021 interval history: patient presented with shortness of breath with elevated BNP of 1060, cardiac echo showed moderate reduced ejection fraction 40-45% and left ventricular diastolic dysfunction grade 1, forge operator helper lauro
[2021-07-13] MEDS: cefTRIAXone 2 GM in SODIUM CHLORIDE 0.9% IV 100 ML 200 ML IVPB (15:33)
[2021-07-13] MEDS: ENOXAPARIN 40 MG/0.4 ML SYRINGE SUB-Q (15:34)
[2021-07-13 16:43] LABS: Glucose Point of Care 309 mg/dl (65-105)
--- NOTE | 2021-07-13 16:51 | ECG_ITS ---
Measurements Intervals [place] Rate: 94 P: AR: 0 QRS: 87 QRSD: 101 T: 120 QT: 375 QTc: 471 Interpretive Statements ATRIAL FIBRILLATION SEPTAL MYOCARDIAL INFARCTION , OF INDETERMINATE AGE [40+ ms Q WAVE IN V1/V2] COMPARED TO ECG 07/12/2021 03:54:38 LATERAL T-WAVE ABNORMALITY, CONSIDER ISCHEMIA ABNORMAL ECG ATRIAL FIBRILLATION NOW PRESENT Electronically Signed On 07-13-2021 17:07:34 CDT by [place] Trevino M.D.
[2021-07-13 17:13] LABS: Arterial Blood Gas Vent Mode CMV; Arterial Blood Gas Ventilator rate 20 /MIN; Base Excess ABG -0.7 mEq/l (+/-2.0); Carboxyhemoglobin 0.2 % THb (0-2.0); Device VENTILATOR; Fractional Inspired Oxygen 100 %; HCO3 ABG 23.9 mEq/l (22.0-26.0); Methemoglobin ABG 0.4 %THb (0-1.5); Modified Allen's Test Pass; Oxygen Content ABG 17.2 %vol (16.0-22.0); Oxygen Saturation ABG 99.7 % (95.0-100.0); Oxyhemoglobin 97.9 % THb (90.0-100.0); PO2 FiO2 Ratio Arterial Blood 3.11 %; Reduced Hemoglobin 1.5 %THb (0-5.0); Site Drawn RIGHT RADIAL; Total Hemoglobin 11.9 g/dL (12.0-18.0); pH ABG 7.405 (7.350-7.450)
[2021-07-13 17:14] LABS: Arterial Blood Gas PEEP 5 cmH2O; Arterial Blood Gas Tidal Volume 450 ml
[2021-07-13] MEDS: FENTANYL 2,500MCG/NS250ML(*CRX 2,500 MCG/250 ML BAG 10 MCG (17:24)
[2021-07-13] MEDS: MIDAZOLAM 100MG/NS 100ML(*CRX) 100 MG/100 ML BAG (17:26)
[2021-07-13] MEDS: FENTANYL 2,500MCG/NS250ML(*CRX 2,500 MCG/250 ML BAG 10 MCG IV CONT (17:30)
[2021-07-13] MEDS: MIDAZOLAM 100MG/NS 100ML(*CRX) 100 MG/100 ML BAG IV CONT (17:30)
[2021-07-13] MEDS: AMIODARONE 150 MG/D5W 100 ML 150 MG/100 ML BAG 600 MG IV CONT (17:42)
[2021-07-13] MEDS: AMIODARONE 360 MG/D5W 200 ML 360 MG/200 ML BAG 33.33 MG IV CONT (17:43)
[2021-07-13] MEDS: ENOXAPARIN 80 MG/0.8 ML SYRINGE SUB-Q (17:46)
[2021-07-13 18:07] LABS: Alanine Aminotransferase 119 U/L (4-50); Albumin Level 3.7 g/dL (3.5-5.1); Alkaline Phosphatase 106 U/L (38-126); Anion Gap 8 mmol/L (8-16); Aspartate Amino Transferase 170 U/L (17-59); Bilirubin,Total 0.5 mg/dL (0.2-1.3); Blood Urea Nitrogen 32 mg/dL (9-20); Calcium 8.2 mg/dL (8.4-10.2); Carbon Dioxide 26 mmol/L (22-30); Chloride 101 mmol/L (98-107); Estimated CRCL calculation 53 ml/min; Estimated Glomerular Filt Rate 49; Glucose 395 mg/dL (65-110); INR 1.3; Phosphorus 4.3 mg/dL (2.5-4.5); Potassium 4.3 mmol/L (3.4-5.0); Prothrombin Time 15.7 Seconds (11.1-14.7); Sodium 135 mmol/L (137-145)
[2021-07-13 18:08] LABS: Partial Thromboplastin Time 34.6 SECONDS (22.3-36.8)
[2021-07-13 18:08] LABS: Magnesium 2.2 mg/dL (1.6-2.3)
--- NOTE | 2021-07-13 18:18 | ED.PROCEDURE ---
Procedures Intubation Intubation Date: 07/13/21 Intubation Time: 16:45 A pre-procedural Time-Out was completed immediately before starting the procedure and confirmed: Patient Identification, Site, Procedure, Patient Position and the Availability of Requisite Equipment: Yes Sedative: etomidate Mg given: 4 Paralytic: succinylcholine Mg given: 100 ET tube size: cuffed Tube secured depth (cm): 26 Tube secured location: lips Tube placement confirmation: visualized tube passing through cords, equal breath sounds bilaterally, no breath sounds over epigastrium and confirmation by capnometry Patient tolerated procedure: well Intubation complications: none
--- NOTE | 2021-07-13 18:21 | ED.PROCEDURE ---
Procedures Other Procedures Procedure 1: Other Procedure: Responded to CODE CLARISA called on the third floor. The patient had been using the restroom when he became lightheaded and diaphoretic and fell forward he was caught and lay down on the ground the patient was then noted to lose his pulse and CPR was started when I arrived the patient is laying on the floor with half his body in the bathroom half in the hallway with CPR being performed with BVM at that time CPR was continued and please see full code sheet for medications given the patient was found to be in V. tach on rhythm check him had to attempted defibrillation with return of sinus tachycardia. At that time the patient was moved up onto a bed using a slide board and then taken to the ICU where he was intubated please see my procedure note for full intubation note that time I did contact Dr. Wade as well as Dr. Zhou patient be given amiodarone [address] Zhou then gave orders to nursing staff for continued cardiac medications at that time care is turned back over to the ICU physician Dr. Tam was present at the code and did discuss with the patient's and EKG postcode showed the patient to be in A. fib but no signs of ST elevation
[2021-07-13 18:26] LABS: Troponin I 0.223 ng/mL (0.000-0.034)
[2021-07-13 18:57] LABS: Basophils Absolute Auto 0.1 K/mm3 (0.0-0.1); Basophils Percent Auto 0.7 % (0.2-1.2); Eosinophils Absolute Auto 0.2 K/mm3 (0-0.3); Eosinophils Percent Auto 1.9 % (0-4.4); Hematocrit 33.2 % (42.0-52.0); Hemoglobin 11.3 g/dL (14.0-18.0); Immature Granulocyte Absolute 0.11 K/mm3 (0.00-0.031); Immature Granulocyte Percent A 1.3 % (0-0.5); Lymphocytes Absolute Auto 2.24 K/mm3 (0.9-3.2); Lymphocytes Percent Auto 26.3 % (18.3-44.2); Mean Corpuscular Hemoglobin 32.1 pg (26-34); Mean Corpuscular Volume 94.3 fl (80-100); Mean Platelet Volume 12.2 fl (7.4-10.4); Monocytes Absolute Auto 0.8 K/mm3 (0.1-0.6); Monocytes Percent Auto 9.4 % (2.6-8.5); Neutrophils Absolute Auto 5.1 K/mm3 (1.3-6.7); Neutrophils Percent Auto 60.4 % (45.5-73.1); Platelet Count Result 210 k/mm3 (150-375); Red Blood Count 3.52 M/mm3 (4.6-6.20); Red Cell Distribution Width 12.5 % (11.5-14.5); White Blood Count 8.5 K/mm3 (4.5-10.0)
[2021-07-13] MEDS: SODIUM CHLORIDE 0.9% IV 1,000 ML 999 ML IV CONT (19:23)
[2021-07-13] MEDS: AMIODARONE 360 MG/D5W 200 ML 360 MG/200 ML BAG 16.67 MG IV CONT (19:44)
[2021-07-13] MEDS: SODIUM CHLORIDE 0.9% IV 1,000 ML 100 ML IV CONT (19:55)
[2021-07-13 20:11] LABS: Glucose Point of Care 384 mg/dl (65-105)
[2021-07-13] MEDS: INSULIN GLARGINE (*BKC) 100 UNITS/ML 30 UNITS SUB-Q (20:17)
[2021-07-13] MEDS: MINERAL OIL/WHITE PETROLATUM OINTMENT 1 APPLIC EACH EYE (20:19)
[2021-07-13] MEDS: DOXYCYCLINE 100 MG/NS 100 ML 100 MG/100 ML BAG IVPB (20:19)
[2021-07-13] MEDS: ROSUVASTATIN 10 MG TABLET 20 MG PO (20:20)
[2021-07-13 23:47] LABS: Glucose Point of Care 370 mg/dl (65-105)
[2021-07-14] VITALS (42 sets, daily range): BP systolic 116–145; BP diastolic 59–76; PULSE 48–108; RESP 12–24; TEMP 36.7–37.6; O2SAT 92–100; BMI 34.1
[2021-07-14] MEDS: AMIODARONE 360 MG/D5W 200 ML 360 MG/200 ML BAG 16.67 MG IV CONT (01:31)
[2021-07-14] MEDS: IPRATROPIUM BR 0.02% INH SOLN 0.5 MG/2.5 ML VIAL INHALATION ×4 (02:15→19:11)
[2021-07-14] MEDS: ALBUTEROL SULFATE NEB 2.5 MG/0.5 ML INH INHALATION ×4 (02:15→19:11)
[2021-07-14 05:45] LABS: Anion Gap 9 mmol/L (8-16); Blood Urea Nitrogen 38 mg/dL (9-20); Calcium 7.8 mg/dL (8.4-10.2); Carbon Dioxide 24 mmol/L (22-30); Chloride 103 mmol/L (98-107); Estimated CRCL calculation 53 ml/min; Estimated Glomerular Filt Rate 49; Glucose 354 mg/dL (65-110); Potassium 4.1 mmol/L (3.4-5.0); Sodium 136 mmol/L (137-145)
[2021-07-14 05:57] LABS: Troponin I 0.193 ng/mL (0.000-0.034)
[2021-07-14 05:59] LABS: Alveolar/Arterial O2 Gradient 111.7 mmHg; Base Excess ABG -1.2 mEq/l (+/-2.0); Carboxyhemoglobin 0.2 % THb (0-2.0); Fractional Inspired Oxygen 35 %; HCO3 ABG 22.3 mEq/l (22.0-26.0); Methemoglobin ABG 0.2 %THb (0-1.5); Oxygen Content ABG 15.3 %vol (16.0-22.0); Oxygen Saturation ABG 97.8 % (95.0-100.0); Oxyhemoglobin 96.4 % THb (90.0-100.0); PCO2 ABG 33.3 mmHg (35.0-45.0); PO2 ABG 99.1 mmHg (80.0-100.0); PO2 FiO2 Ratio Arterial Blood 2.83 %; Reduced Hemoglobin 3.2 %THb (0-5.0); Total Hemoglobin 11.2 g/dL (12.0-18.0); pH ABG 7.444 (7.350-7.450)
[2021-07-14 06:01] LABS: Device VENTILATOR; Modified Allen's Test Unable to perform; Site Drawn RIGHT RADIAL
[2021-07-14 06:02] LABS: Arterial Blood Gas PEEP 5 cmH2O; Arterial Blood Gas Tidal Volume 450 ml; Arterial Blood Gas Vent Mode CMV; Arterial Blood Gas Ventilator rate 20 /MIN
[2021-07-14] MEDS: SODIUM CHLORIDE 0.9% IV 1,000 ML 100 ML IV CONT (06:04)
[2021-07-14 06:05] LABS: Hematocrit 32.9 % (42.0-52.0); Hemoglobin 11.4 g/dL (14.0-18.0); Mean Corpuscular HGB Conc 34.7 g/dl (32-36); Mean Corpuscular Hemoglobin 32.7 pg (26-34); Mean Corpuscular Volume 94.3 fl (80-100); Mean Platelet Volume 11.9 fl (7.4-10.4); Platelet Count Result 192 k/mm3 (150-375); Red Blood Count 3.49 M/mm3 (4.6-6.20); Red Cell Distribution Width 12.7 % (11.5-14.5); White Blood Count 9.2 K/mm3 (4.5-10.0)
[2021-07-14] MEDS: INSULIN ASPART (*BKC) 100 UNITS/ML SUB-Q ×5 (06:11→20:55)
[2021-07-14] MEDS: DOXYCYCLINE 100 MG/NS 100 ML 100 MG/100 ML BAG IVPB ×2 (06:13→18:50)
[2021-07-14 06:17] LABS: Glucose Point of Care 348 mg/dl (65-105)
[2021-07-14] MEDS: ASPIRIN 81 MG CHEWABLE TABLET PO (08:00)
[2021-07-14] MEDS: ISOSORBIDE MONONITRATE 30 MG TAB.ER.24H PO (08:00)
[2021-07-14] MEDS: amLODIPine BESYLATE 5 MG TABLET PO (08:00)
[2021-07-14] MEDS: LOSARTAN POTASSIUM 25 MG TABLET PO (08:00)
[2021-07-14] MEDS: MINERAL OIL/WHITE PETROLATUM OINTMENT 1 APPLIC EACH EYE ×2 (08:01→20:02)
[2021-07-14 08:36] LABS: Glucose Point of Care 312 mg/dl (65-105)
--- NOTE | 2021-07-14 10:28 | WPDCNINT ---
Assessment and Plan Assessment and plan (1) Acute respiratory failure: Code(s): J96.00 - Acute respiratory failure, unspecified whether with hypoxia or hypercapnia Status: Acute Assessment and Plan: Acute Respiratory failure secondary to cardiac arrest Continue full mechanical ventilation support to prevent hypoxemia/hypercarbia and end organ damage. ABG and PCXR reviewed Decrease tidal volume to 420 Low tidal volume ventilation strategy to prevent volutrauma Patient on Versed and fentanyl for sedation He was started on empiric antibiotics in the form of Rocephin and doxycycline for suspected pneumonia He is afebrile and WBCs normal. I will check procalcitonin Post catheterization of check CT chest to further evaluate his lung parenchyma (2) Cardiac arrest: Code(s): I46.9 - Cardiac arrest, cause unspecified Status: Acute Assessment and Plan: Patient has a baseline history of CAD status post multivessel PCI in July of last year. Now presented with shortness of breath and was diagnosed with congestive heart failure Yesterday he had episode where he was in V-tach and was defibrillated and received CPR. He was down for approximately 5 minute Today on sedation holiday he is following commands. Continue aspirin He is on amiodarone infusion Beta-claudia on hold due to bradycardia Cozaar held due to soft blood pressure on sedation now His LFTs elevated likely from cardiac arrest. I will repeat levels now and if they are further increased, will hold statin Hemodynamically stable and not requiring any vasopressor this time On therapeutic dose Lovenox Cardiology plans to take him to cardiac catheterization lab today Echo done 1. Left ventricular chamber dimension is mildly enlarged. 2. Left ventricular systolic function is moderately reduced, estimated at 40-45%. 3. There is mildly increased left ventricular wall thickness. 4. The left ventricular diastolic function is grade I diastolic dysfunction. 5. The apex, inferior wall, anterior wall, mid anterolateral wall, and mid anteroseptal are hypokinetic. 6. Left atrial chamber dimension is mildly enlarged. 7. There is mild mitral valve regurgitation. 8. There is mild tricuspid valve regurgitation. 9. The mitral valve has thickened leaflets and calcified leaflets. (3) Cardiomyopathy: Code(s): I42.9 - Cardiomyopathy, unspecified Status: Acute Assessment and Plan: See above (4) Coronary artery disease: Code(s): I25.10 - Atherosclerotic heart disease of resighini coronary artery without angina pectoris Status: Acute Assessment and Plan: See above (5) Ventricular tachycardia: Code(s): I47.2 - Ventricular tachycardia Status: Acute (6) Atrial fibrillation: Code(s): I48.91 - Unspecified atrial fibrillation Status: Acute (7) Type 2 diabetes mellitus with hyperglycemia, with long-term current use of insulin: Onset Date: Unknown Code(s): E11.65 - Type 2 diabetes mellitus with hyperglycemia; Z79.4 - exterminator (current) use of insulin Status: Chronic Assessment and Plan: Continue Lantus and sliding scale (8) Acute kidney injury: Onset Date: Unknown Code(s): N17.9 - Acute kidney failure, unspecified Status: Acute Assessment and Plan: Hold further Lasix Patient is on IV fluids Check CK level Monitor urine output creatinine electrolytes (9) Hypertension: Qualifiers: Hypertension type: primary hypertension Qualified Code(s): I10 - Essential (primary) hypertension Code(s): I10 - Essential (primary) hypertension Status: Acute Assessment and Plan: Since blood pressure is in controlled range patient is sedated will hold Cozaar and amlodipine at this time Beta-claudia also on hold due to bradycardia (10) Lower extremity edema: Code(s): R60.0 - Localized edema Status: Acute Assessment and P
[2021-07-14 11:20] LABS: Alanine Aminotransferase 105 U/L (4-50); Albumin Level 3.5 g/dL (3.5-5.1); Alkaline Phosphatase 93 U/L (38-126); Aspartate Amino Transferase 71 U/L (17-59); Bilirubin,Total 0.2 mg/dL (0.2-1.3)
[2021-07-14 11:22] LABS: Creatine Kinase 150 U/L (55-170)
--- NOTE | 2021-07-14 11:23 | PM.PNCARD ---
Subjective Date/time seen: 07/14/21 11:23 Interval history: 81-year-old admitted with shortness of breath Date of service 07/13/2021: Feels about at baseline today. Does not have any shortness of breath or chest pain Exam Narrative: Patient awake alert. Appears stated age Const: General: comfortable and no acute distress HENMT: General nose exam: Normal nares present Eyes: Sclera: sclerae normal Neck: Neck: supple and no JVD Chest: Other: No reproducible chest wall pain to palpation Resp: Auscultation: clear to auscultation bilaterally Cardio: Rate: regular rate Rhythm: regular rhythm GI: Inspection: non-distended Auscultation: normal bowel sounds Skin: General skin exam: normal color Neuro: Cranial nerves: Yes Normal hearing present Cognition (Neuro): normal cognition Speech: normal speech Extrem: General: edema (Trivial bilateral lower extremity edema) Psych: Mental Status: mental status grossly normal Objective Data Vital Signs Vital Signs: Vital Signs - 24 hr 07/13/21 12:00 07/13/21 12:50 07/13/21 16:00 Temperature 36.6 C 37.6 C H Pulse Rate 74 78 89 Respiratory Rate 19 20 Blood Pressure 103/58 L 113/76 Pulse Oximetry 97 100 07/13/21 17:22 07/13/21 17:24 07/13/21 17:26 Temperature Pulse Rate 104 H 89 89 Respiratory Rate 20 20 Blood Pressure Pulse Oximetry 100 07/13/21 17:30 07/13/21 17:42 07/13/21 17:43 Temperature Pulse Rate 56 L 89 89 Respiratory Rate 20 Blood Pressure 143/106 H 143/106 H Pulse Oximetry 07/13/21 18:00 07/13/21 19:44 07/13/21 20:00 Temperature 37.6 C 36.6 C Pulse Rate 59 L 49 L 48 L Respiratory Rate 20 20 Blood Pressure 98/63 L 110/69 99/60 L Pulse Oximetry 100 100 07/13/21 20:08 07/13/21 20:19 07/13/21 20:30 Temperature Pulse Rate 47 L 48 L 49 L Respiratory Rate 20 20 Blood Pressure Pulse Oximetry 100 07/13/21 21:00 07/13/21 22:00 07/13/21 22:11 Temperature 36.6 C 36.6 C Pulse Rate 49 L 62 62 Respiratory Rate 20 20 16 Blood Pressure 120/71 135/80 Pulse Oximetry 100 100 07/13/21 23:11 07/14/21 00:00 07/14/21 01:30 Temperature 36.7 C Pulse Rate 57 L 59 L 61 Respiratory Rate 20 20 Blood Pressure 128/72 Pulse Oximetry 100 99 07/14/21 01:31 07/14/21 02:00 07/14/21 02:15 Temperature 36.7 C Pulse Rate 61 62 62 Respiratory Rate 20 20 Blood Pressure 131/71 Pulse Oximetry 100 100 07/14/21 02:25 07/14/21 04:00 07/14/21 05:42 Temperature 36.8 C Pulse Rate 48 L 61 61 Respiratory Rate 20 19 Blood Pressure 127/76 Pulse Oximetry 99 98 07/14/21 06:00 07/14/21 07:50 07/14/21 07:54 Temperature 36.8 C Pulse Rate 61 64 65 Respiratory Rate 20 20 Blood Pressure 121/66 Pulse Oximetry 99 98 07/14/21 07:55 07/14/21 08:00 07/14/21 08:15 Temperature 36.9 C Pulse Rate 65 65 65 Respiratory Rate 20 20 20 Blood Pressure 120/70 Pulse Oximetry 97 07/14/21 08:25 07/14/21 09:57 07/14/21 10:00 Temperature 37.2 C Pulse Rate 68 65 65 Respiratory Rate 20 24 H 20 Blood Pressure 126/66 Pulse Oximetry 96 07/14/21 10:53 Temperature Pulse Rate 68 Respiratory Rate Blood Pressure Pulse Oximetry 96 Intake/Output Intake/Output: Intake & Output 07/11/21 07/12/21 07/13/21 07/14/21 23:59 23:59 23:59 23:59 Intake Total 200 1790 1300 Output Total 1025 1450 500 Balance -825 340 800 Meds/Results Medications: Active Medications Generic Name Dose Route Start Last Admin Trade Name Freq PRN Reason Stop Dose Admin Acetaminophen 650 mg 07/13/21 18:15 Acetaminophen Elixir 325 Mg/10.15 Ml Udc PO Q4H PRN Fever > 100.4 Albuterol 2.5 mg 07/12/21 14:00 07/14/21 07:31 Albuterol Sulfate Neb 2.5 Mg/0.5 Ml Inh INHALATION Not Given Q6HRT COUNT INCLUDES THE [facility] Amlodipine Besylate 5 mg 07/12/21 09:00 07/14/21 08:00 Amlodipine Besylate 5 Mg Tablet PO 5 mg DAILY WARNER Administration Aspirin 81 mg 07/12/21 16:13 07/14/21 0
--- NOTE | 2021-07-14 11:34 | PM.PNCARD ---
Progress Note: A&P Additional Plan 81-year-old man with: Multivessel coronary artery disease status post PCI of the OM and right coronary artery about 11 months ago. Had been doing well and following up in the office last seen in March of 2021 at which time he had no cardiovascular complaints. Patient presents now with about 48 hours of increasing shortness of breath and some evidence of CHF. Yesterday evening had an abrupt VT arrest from which he was resuscitated. In this setting plans are made for follow-up angiography which will be done later today. Rodney Jackson MD [facility] Subjective Date/time seen: Date of service:07/14/21 11:34 Interval history: Follow-up visit in this 81-year-old man with: Multivessel coronary artery disease with ischemic cardiomyopathy treated with percutaneous revascularization at another hospital in 2020. Patient underwent stenting of the obtuse marginal circumflex as well as the RCA. Mid LAD is a disease was felt to be treated medically. Patient has mild LV systolic dysfunction and admitted to the hospital with some shortness of breath. Yesterday had an abrupt VT arrest from which he was resuscitated and is now in the ICU on mechanical ventilator support and is sedated. Patient's reports that there has been no recent chest pain. She indicates that shortness of breath have been bothering him for about 48 hours before coming into the hospital. Exam Const: Other: Elderly white male sedated on mechanical ventilator support HENMT: Mouth: Yes moist mucous membranes Eyes: Sclera: sclerae normal Neck: Neck: supple and no JVD Resp: Effort & Inspection: normal respiratory effort Other: scattered coarse rhonchi are noted Cardio: Rate: regular rate Rhythm: regular rhythm GI: GI Palp: Yes Soft to palpation Auscultation: normal bowel sounds Skin: General skin exam: normal color Neuro: Other: sedated on mechanical ventilator Extrem: Other: minimal edema Objective Data Vital Signs Vital Signs: Vital Signs - 24 hr 07/13/21 12:00 07/13/21 12:50 07/13/21 16:00 Temperature 36.6 C 37.6 C H Pulse Rate 74 78 89 Respiratory Rate 19 20 Blood Pressure 103/58 L 113/76 Pulse Oximetry 97 100 07/13/21 17:22 07/13/21 17:24 07/13/21 17:26 Temperature Pulse Rate 104 H 89 89 Respiratory Rate 20 20 Blood Pressure Pulse Oximetry 100 07/13/21 17:30 07/13/21 17:42 07/13/21 17:43 Temperature Pulse Rate 56 L 89 89 Respiratory Rate 20 Blood Pressure 143/106 H 143/106 H Pulse Oximetry 07/13/21 18:00 07/13/21 19:44 07/13/21 20:00 Temperature 37.6 C 36.6 C Pulse Rate 59 L 49 L 48 L Respiratory Rate 20 20 Blood Pressure 98/63 L 110/69 99/60 L Pulse Oximetry 100 100 07/13/21 20:08 07/13/21 20:19 07/13/21 20:30 Temperature Pulse Rate 47 L 48 L 49 L Respiratory Rate 20 20 Blood Pressure Pulse Oximetry 100 07/13/21 21:00 07/13/21 22:00 07/13/21 22:11 Temperature 36.6 C 36.6 C Pulse Rate 49 L 62 62 Respiratory Rate 20 20 16 Blood Pressure 120/71 135/80 Pulse Oximetry 100 100 07/13/21 23:11 07/14/21 00:00 07/14/21 01:30 Temperature 36.7 C Pulse Rate 57 L 59 L 61 Respiratory Rate 20 20 Blood Pressure 128/72 Pulse Oximetry 100 99 07/14/21 01:31 07/14/21 02:00 07/14/21 02:15 Temperature 36.7 C Pulse Rate 61 62 62 Respiratory Rate 20 20 Blood Pressure 131/71 Pulse Oximetry 100 100 07/14/21 02:25 07/14/21 04:00 07/14/21 05:42 Temperature 36.8 C Pulse Rate 48 L 61 61 Respiratory Rate 20 19 Blood Pressure 127/76 Pulse Oximetry 99 98 07/14/21 06:00 07/14/21 07:50 07/14/21 07:54 Temperature 36.8 C Pulse Rate 61 64 65 Respiratory Rate 20 20 Blood Pressure 121/66 Pulse Oximetry 99 98 07/14/21 07:55 07/14/21 08:00 07/14/21 08:15 Temperature 36.9 C Pulse Rate 65 65 65 Respiratory Rate 20 20 20 Blood Pressure 120/70 Pulse Oximetry 97 07/14/21 08:25 07/14/21
[2021-07-14] MEDS: LIDOCAINE HCL 1% PF INJ 5 ML VIAL INFILTRATE (11:40)
--- NOTE | 2021-07-14 11:40 | WPDMODSED ---
Moderate Sedation Note-Pt Data Patient Data Diagnosis: ischemic cardiomyopathy ventricular tachycardia Present Complaint: patient sedated and on the ventilator obviously no complaints Procedure to be performed/Plan: follow-up left heart catheterization Allergies Allergy/AdvReac Type Severity Reaction Status Date / Time No Known Allergies Allergy Verified 07/12/21 03:54 Home Medications Medication Instructions Recorded Confirmed Type amlodipine 5 mg PO DAILY 07/12/21 07/12/21 History aspirin [Adult Aspirin] 81 mg PO DAILY 07/12/21 07/12/21 History carvedilol 12.5 mg PO DAILY 07/12/21 07/12/21 History insulin degludec [Tresiba 44 unit SUBCUT HS 07/12/21 07/12/21 History FlexTouch U-200] insulin lispro See Rx Instructions .ROUTE .COMPLEX 07/12/21 07/12/21 History rosuvastatin 20 mg PO HS 07/12/21 07/12/21 History Current Medications: Active Medications Acetaminophen (Acetaminophen Elixir 325 Mg/10.15 Ml Udc) 650 mg PO Q4H PRN PRN Reason: Fever > 100.4 Albuterol (Albuterol Sulfate Neb 2.5 Mg/0.5 Ml Inh) 2.5 mg INHALATION Q6HRT [facility] Last Admin: 07/14/21 07:31 Dose: Not Given Documented by: Amlodipine Besylate (Amlodipine Besylate 5 Mg Tablet) 5 mg PO DAILY [facility] Last Admin: 07/14/21 08:00 Dose: 5 mg Documented by: Aspirin (Aspirin 81 Mg Chewable Tablet) 81 mg PO DAILY@0800 [facility] Last Admin: 07/14/21 08:00 Dose: 81 mg Documented by: Carvedilol (Carvedilol 25 Mg Tablet) 25 mg PO Q12HR [facility] Dextrose (Dextrose 50% 25 Gm/50 Ml Syringe) 12.5 gm IV PUSH PRN PRN; Protocol PRN Reason: Hypoglycemia Glucagon (Glucagon For Inj 1 Mg Vial) 1 mg IM PRN PRN; Protocol PRN Reason: Hypoglycemia Glucose (Glucose Oral Gel 15 Gm Of Glucse In 37.5 Gm Tube) 15 gm PO PRN PRN; Protocol PRN Reason: Hypoglycemia Hydralazine HCl (Hydralazine Hcl 20 Mg/Ml Vial) 10 mg IV PUSH Q8H PRN PRN Reason: Blood Pressure - High Dextrose (Dextrose 5% 1,000 Ml) 1,000 mls @ 100 mls/hr IVPB PRN PRN; Protocol PRN Reason: Hypoglycemia Ceftriaxone Sodium 2 gm/ (Sodium Chloride) 100 mls @ 200 mls/hr IVPB Q24H [facility] Last Infusion: 07/13/21 19:56 Dose: Infused Documented by: Amiodarone HCl/Dextrose (Nexterone 360 Mg/D5w 200 Ml) 360 mg in 200 mls @ 16.667 mls/hr IV CONT .Q12H WARNER; Protocol Stop: 07/14/21 23:29 Last Admin: 07/14/21 01:31 Dose: 0.5 mg/min, 16.67 mls/hr Documented by: Fentanyl Citrate (Fentanyl 2,500 Mcg/Ns 250 Ml) 2,500 mcg in 250 mls @ 10 mls/hr IV CONT .Q25H [facility]; Protocol Last Titration: 07/14/21 09:57 Dose: 100 mcg/hr, 10 mls/hr Documented by: Midazolam HCl (Versed 100 Mg/Ns 100 Ml) 100 mg in 100 mls @ 3 mls/hr IV CONT .[id number] [facility]; Protocol Last Titration: 07/14/21 09:57 Dose: 3 mg/hr, 3 mls/hr Documented by: Doxycycline Hyclate (Vibramycin 100 Mg/Ns 100 Ml) 100 mg in 100 mls @ 100 mls/hr IVPB Q12H [facility] Last Infusion: 07/14/21 07:23 Dose: Infused Documented by: Sodium Chloride (Normal Saline Iv) 1,000 mls @ 100 mls/hr IV CONT .Q10H [facility] Last Admin: 07/14/21 06:04 Dose: 100 mls/hr Documented by: Insulin Aspart (Insulin Aspart (*Bkc) 100 Units/Ml) 4 - 8 units SUB-Q Q4H [facility]; Protocol Last Admin: 07/14/21 08:35 Dose: 6 units Documented by: Insulin Glargine (Insulin Glargine (*Bkc) 100 Units/Ml) 30 units SUB-Q HS [facility] Last Admin: 07/13/21 20:17 Dose: 30 units Documented by: Ipratropium [place] (Ipratropium Br 0.02% Inh Soln 0.5 Mg/2.5 Ml Vial) 0.5 mg INHALATION Q6HRT [facility] Last Admin: 07/14/21 07:31 Dose: Not Given Documented by: Isosorbide Mononitrate (Isosorbide Mononitrate 30 Mg Tab.Er.24h) 30 mg PO QAM [facility] Last Admin: 07/14/21 08:00 Dose: 30 mg Documented by: Losartan Potassium (Losartan Potassium 25 Mg Tablet) 25 mg PO DAILY [facility] Last Admin: 07/14/21 08:00 Dose: 25 mg Documented by: Multi-Ingred Cream/Lotion/Oil/Oint (Mineral Oil/White Petrolatum Ointment) 1 applic EACH EYE Q12HR [facility] Last Admin: 07/14/21 08:01 Dose: 1 applic Documented by: Pantoprazole Sodium (Pantoprazole Sodium Iv 40
[2021-07-14 12:06] LABS: Procalcitonin 0.5 ng/mL
[2021-07-14 12:31] LABS: Glucose Point of Care 263 mg/dl (65-105)
--- NOTE | 2021-07-14 13:19 | ECG_ITS ---
Measurements Intervals [place] Rate: 74 P: [place]: 0 QRS: 90 QRSD: 102 T: 120 QT: 409 QTc: 455 Interpretive Statements NORMAL SINUS RHYTHM NONSPECIFIC T-WAVE ABNORMALITY ABNORMAL ECG COMPARED TO ECG 07/13/2021 16:59:42 SUPRAVENTRICULAR RHYTHM NOW PRESENT T-WAVE ABNORMALITY NOW PRESENT Electronically Signed On 07-15-2021 11:40:25 CDT by Chico Trevino M.D.
--- NOTE | 2021-07-14 13:26 | PDCODEBLUE ---
Code Blue Note Code Blue Note Time Arrived at Code Blue: 1315 Initial Rhythm on Arrival: Torsades Airway Management: Pt being bagged on arrival Chest Compressions: No compressions given Result of Code Blue: ICU Cardiac Rhythm Post Code: AFib Code Blue Summary: Patient was already intubated and on mechanical ventilation. He was on amiodarone infusion. He went into torsades. 2 g of Mag sulfate was given. Patient was DC cardioverted with 200 joules. Pulse was felt but was weak. Patient was in junctional bradycardia, with hypotension and impending PEA. 1 mg of epinephrine was given which led to improvement in blood pressure heart rate and strong pulse. Junctional bradycardia converted to interventricular conduction delay then patient went to AFib. Currently in AFib with controlled ventricular rate. Amiodarone is on hold I would be resumed if patient goes into RVR after discussion with Cardiology Check BMP and EKG. Patient's was updated at bedside. Cardiology aware and plans to take patient to cardiac catheterization lab as soon as possible
[2021-07-14 13:39] LABS: Anion Gap 10 mmol/L (8-16); Blood Urea Nitrogen 35 mg/dL (9-20); Calcium 7.8 mg/dL (8.4-10.2); Carbon Dioxide 23 mmol/L (22-30); Chloride 106 mmol/L (98-107); Estimated CRCL calculation 53 ml/min; Estimated Glomerular Filt Rate 49; Glucose 284 mg/dL (65-110); Potassium 2.9 mmol/L (3.4-5.0); Sodium 139 mmol/L (137-145)
[2021-07-14] MEDS: CENTRAL LINE FLUSH 10 ML IV PUSH ×2 (13:47→20:02)
--- NOTE | 2021-07-14 14:00 | PCPTNOTE ---
Patient discharged from therapy at this time due to a code blue called on 07/13/21. Pt was transferred to ICU and nurse states pt is not eligible for therapy at this time. Please reorder when medically appropriate.
[2021-07-14] MEDS: POTASSIUM CHLORIDE 20 MEQ PACKET (FOR LIQUID) 40 MEQ FEED TUBE (14:01)
[2021-07-14] MEDS: KCL 40 MEQ/WATER 100 ML 100 ML 25 ML IVPB (14:06)
[2021-07-14] MEDS: CALCIUM GLUC 2,000 MG/NS 100ML 2,000 MG/100 ML BAG 100 MG IVPB (14:09)
--- NOTE | 2021-07-14 15:40 | ECG_ITS ---
Measurements Intervals [place] Rate: 100 P: [place]: 0 QRS: 84 QRSD: 105 T: 211 QT: 379 QTc: 489 Interpretive Statements ATRIAL FIBRILLATION WITH RAPID VENTRICULAR RESPONSE NONSPECIFIC ST & T-WAVE ABNORMALITY ABNORMAL ECG COMPARED TO ECG 07/13/2021 16:59:42 T-WAVE ABNORMALITY NOW PRESENT Electronically Signed On 07-15-2021 11:40:01 CDT by [place] Trevino M.D.
--- NOTE | 2021-07-14 15:44 | WPDCARDPROC ---
Cardiac Cath Procedure Note Date of procedure:: 07/14/21 Performing physician:: Rodney Jackson MD Indication:: coronary artery disease with previous PCI polymorphic ventricular tachycardia Brief clinical history:: this is a 81-year-old man known to have coronary disease underwent percutaneous revascularization of a major OM branch of the circumflex as well as of the right coronary artery in July of 2020. He has done well since then. He is known to have some ualf-jn-twfjyiip mid to distal LAD disease that is been treated medically. He entered the hospital with dyspnea and last evening and earlier today developed polymorphic ventricular tachycardia that required electrical termination. He presents for follow-up angiography for that reason. Following the original arrest last evening he has been to be stated placed on ventilator support. Procedure Procedure performed:: Coronary angiography PCI(KATHYA) to the major diagonal branch of the LAD Sedation/Medication given:: patient presented with Versed drip running from the ICU no additional sedation given case start time 3:02 p.m. case end time 3:36 p.m. Access site:: right femoral artery Estimated blood loss:: 50 cc Procedure note:: patient was brought to the cardiac catheterization sedated on a mechanical ventilator and placed in the supine position. The right femoral triangle was prepared and draped the usual fashion. Anesthesia was provided with 1% lidocaine infiltrated locally. Using the modified Seldinger technique the right common femoral artery was punctured and a 5 Indonesian vascular sheath was placed. After this I used a 5 [place] FL4 catheter to engage and inject the left coronary artery in multiple projections. After this I used a 5 Indonesian JR4 catheter to engage and inject the right coronary artery in multiple projections. Following this the cine angiograms were reviewed. PCI of the diagonal branch of the LAD was recommended and carried out as detailed below. Prior to PCI the patient was started on bolus and infusion of Angiomax for procedural anticoagulation and he was given 600 mg of clopidogrel down his OG tube. Prior to PCI the 5 Indonesian sheath was exchanged over a guidewire for a 6 Indonesian sheath. Following successful PCI as detailed below the angiogram was done of the femoral artery through the sheath and a Angio-Seal device was deployed with a good hemostatic result. Patient was taken back to the ICU for post PCI recovery and further management of his arrhythmias. Findings:: Hemodynamics: Central aortic pressure is 138/78. No LV pressure was obtained during this procedure the left main coronary artery is medium in caliber and nicely patent the left anterior descending is a moderate to large caliber artery extending down to around the apex supplying a significant portion of the inferior wall as well. There is mild plaquing and irregularity throughout the LAD. There is a moderate stenosis of about 60% in the mid to distal portion of the vessel at the site of a 70-80% lesion of last year. There was JONATHAN 3 flow in the LAD. The major diagonal branch which in this patient is D2 has a 95% stenosis in its proximal portion. This is a medium-sized diagonal. The 1st diagonal is very small and has proximal 70-80% stenosis this is not suitable for PCI. The circumflex is a medium caliber vessel giving rise to 1 significant large and long obtuse marginal branch. This vessel has no significant stenosis. The visible stent from previous intervention in the midportion of this obtuse marginal branch remains widely patent with no loss of lumen. The right coronary artery is moderate to large caliber and dominant to the posterior circulation. They trunk of the right coronary artery has visible stent material from the proximal portion down to the junction between the 2nd and 3rd portion. This entire area remains nicely patent with no significant loss of lumen. Distal to the stented area
[2021-07-14] MEDS: FENTANYL 2,500MCG/NS250ML(*CRX 2,500 MCG/250 ML BAG 10 MCG IV CONT (16:00)
[2021-07-14 16:26] LABS: Glucose Point of Care 213 mg/dl (65-105)
[2021-07-14] MEDS: SODIUM CHLORIDE 0.9% IV 1,000 ML 125 ML IV CONT (16:33)
[2021-07-14] MEDS: cefTRIAXone 2 GM in SODIUM CHLORIDE 0.9% IV 100 ML 200 ML IVPB (17:09)
--- NOTE | 2021-07-14 18:39 | PC.NURSE ---
At 1307 pt noted to go into torsades heart rhythm, no pulse felt. Physician called to bedside. crash cart brought to bedside. 1309 2g mag given IV push, 1310 one shocked delivered, pulse felt by physician. Junctional bradycardia noted on monitor. 1311 1 mg epinephrine given, patient then went into sinus tach, increase in Blood Pressure, strong pulse felt. 1 L bolus started. 1313 patient afib, rate controlled.
[2021-07-14] MEDS: AMIODARONE 150 MG/D5W 100 ML 150 MG/100 ML BAG 600 MG IV CONT (19:28)
[2021-07-14 19:31] LABS: Alveolar/Arterial O2 Gradient 471.1 mmHg; Base Excess ABG -3.2 mEq/l (+/-2.0); Fractional Inspired Oxygen 100 %; HCO3 ABG 21.7 mEq/l (22.0-26.0); Oxygen Content ABG 16.2 %vol (16.0-22.0); Oxygen Saturation ABG 99.4 % (95.0-100.0); Oxyhemoglobin 97.9 % THb (90.0-100.0); PCO2 ABG 38.5 mmHg (35.0-45.0); PO2 ABG 203.4 mmHg (80.0-100.0); PO2 FiO2 Ratio Arterial Blood 2.03 %; Total Hemoglobin 11.4 g/dL (12.0-18.0); pH ABG 7.369 (7.350-7.450)
[2021-07-14 19:32] LABS: Arterial Blood Gas PEEP 5 cmH2O; Arterial Blood Gas Tidal Volume 450 ml; Arterial Blood Gas Vent Mode CMV; Arterial Blood Gas Ventilator rate 20 /MIN; Device VENTILATOR; Modified Allen's Test Pass; Site Drawn LEFT RADIAL
--- NOTE | 2021-07-14 19:35 | PC.NURSE ---
185 pt noted to go into torsades. No pulse noted. code called, crash cart to bedside. 185 shock given, pt went into junctional bracycardia, Weak pulse felt. 185 1 mg epinephrine given. pt into sinus tach following epinephrine. strong pulse noted, increased blood pressure. Dr. Blakely called for further instructions. Instructed to draw stat ABG, mag, and BMP. And restart amio gtt with bolus first. Pt currently NSR at 77, BP 120/58, 91% on vent. Remains on ventilation and sedation
[2021-07-14 19:45] LABS: Anion Gap 6 mmol/L (8-16); Blood Urea Nitrogen 34 mg/dL (9-20); Carbon Dioxide 23 mmol/L (22-30); Chloride 109 mmol/L (98-107); Estimated CRCL calculation 57 ml/min; Estimated Glomerular Filt Rate 53; Glucose 233 mg/dL (65-110); Magnesium 2.4 mg/dL (1.6-2.3); Potassium 3.8 mmol/L (3.4-5.0); Sodium 138 mmol/L (137-145)
[2021-07-14] MEDS: AMIODARONE 360 MG/D5W 200 ML 360 MG/200 ML BAG 33.33 MG IV CONT (20:01)
[2021-07-14] MEDS: POTASSIUM CHLORIDE 20 MEQ PACKET (FOR LIQUID) FEED TUBE (20:55)
[2021-07-14] MEDS: ROSUVASTATIN 10 MG TABLET 20 MG PO (20:55)
[2021-07-14] MEDS: INSULIN GLARGINE (*BKC) 100 UNITS/ML 30 UNITS SUB-Q (20:56)
[2021-07-14 21:12] LABS: Glucose Point of Care 224 mg/dl (65-105)
--- NOTE | 2021-07-14 21:37 | ECG_ITS ---
Measurements Intervals [place] Rate: 69 P: SD: 0 QRS: 77 QRSD: 101 T: 114 QT: 416 QTc: 447 Interpretive Statements NORMAL SINUS RHYTHM NONSPECIFIC T-WAVE ABNORMALITY POOR R-WAVE PROGRESSION ABNORMAL ECG Electronically Signed On 07-15-2021 11:47:05 CDT by Chico Trevino M.D.
[2021-07-15] VITALS (15 sets, daily range): BP systolic 118–143; BP diastolic 58–70; PULSE 64–78; RESP 20–22; TEMP 37.2–37.4; O2SAT 93–98
[2021-07-15] MEDS: INSULIN ASPART (*BKC) 100 UNITS/ML SUB-Q ×3 (00:49→09:18)
[2021-07-15] MEDS: MIDAZOLAM 100MG/NS 100ML(*CRX) 100 MG/100 ML BAG IV CONT (00:50)
[2021-07-15] MEDS: AMIODARONE 360 MG/D5W 200 ML 360 MG/200 ML BAG 16.67 MG IV CONT (00:53)
[2021-07-15 00:54] LABS: Glucose Point of Care 220 mg/dl (65-105)
[2021-07-15] MEDS: IPRATROPIUM BR 0.02% INH SOLN 0.5 MG/2.5 ML VIAL INHALATION ×2 (02:49→08:21)
[2021-07-15] MEDS: ALBUTEROL SULFATE NEB 2.5 MG/0.5 ML INH INHALATION ×2 (02:49→08:21)
[2021-07-15] MEDS: SODIUM CHLORIDE 0.9% IV 1,000 ML 100 ML IV CONT (04:08)
[2021-07-15] MEDS: CENTRAL LINE FLUSH 10 ML IV PUSH (04:09)
[2021-07-15 05:22] LABS: Alveolar/Arterial O2 Gradient 153.1 mmHg; Base Excess ABG -1.6 mEq/l (+/-2.0); Carboxyhemoglobin 0.3 % THb (0-2.0); Device VENTILATOR; Fractional Inspired Oxygen 40 %; HCO3 ABG 23.3 mEq/l (22.0-26.0); Methemoglobin ABG 0.2 %THb (0-1.5); Modified Allen's Test Pass; Oxygen Content ABG 16.3 %vol (16.0-22.0); Oxygen Saturation ABG 96.4 % (95.0-100.0); Oxyhemoglobin 94.8 % THb (90.0-100.0); PCO2 ABG 40.1 mmHg (35.0-45.0); PO2 FiO2 Ratio Arterial Blood 2.15 %; Reduced Hemoglobin 4.7 %THb (0-5.0); Site Drawn LEFT RADIAL; Total Hemoglobin 12.2 g/dL (12.0-18.0); pH ABG 7.382 (7.350-7.450)
[2021-07-15 05:23] LABS: Arterial Blood Gas PEEP 5 cmH2O; Arterial Blood Gas Tidal Volume 450 ml; Arterial Blood Gas Vent Mode CMV; Arterial Blood Gas Ventilator rate 20 /MIN
[2021-07-15 05:44] LABS: Hematocrit 31.2 % (42.0-52.0); Hemoglobin 10.3 g/dL (14.0-18.0); Mean Corpuscular Hemoglobin 32.8 pg (26-34); Mean Corpuscular Volume 99.4 fl (80-100); Mean Platelet Volume 11.6 fl (7.4-10.4); Platelet Count Result 181 k/mm3 (150-375); Red Blood Count 3.14 M/mm3 (4.6-6.20); White Blood Count 11.6 K/mm3 (4.5-10.0)
[2021-07-15 05:56] LABS: Alanine Aminotransferase 88 U/L (4-50); Albumin Level 3.3 g/dL (3.5-5.1); Alkaline Phosphatase 82 U/L (38-126); Anion Gap 7 mmol/L (8-16); Aspartate Amino Transferase 43 U/L (17-59); Bilirubin,Total 0.2 mg/dL (0.2-1.3); Blood Urea Nitrogen 34 mg/dL (9-20); Calcium 7.8 mg/dL (8.4-10.2); Carbon Dioxide 21 mmol/L (22-30); Chloride 110 mmol/L (98-107); Estimated CRCL calculation 57 ml/min; Estimated Glomerular Filt Rate 53; Glucose 236 mg/dL (65-110); Magnesium 2.4 mg/dL (1.6-2.3); Potassium 4.1 mmol/L (3.4-5.0); Sodium 138 mmol/L (137-145)
[2021-07-15] MEDS: DOXYCYCLINE 100 MG/NS 100 ML 100 MG/100 ML BAG IVPB (05:56)
--- NOTE | 2021-07-15 08:19 | PM.PNCARD ---
Progress Note: A&P Assessment and Plan (1) Essential hypertension: Onset Date: Unknown Code(s): I10 - Essential (primary) hypertension Status: Acute Assessment and Plan: Uncontrolled. Agree with restarting lower dose carvedilol. Will discontinue amlodipine completely. Add back low-dose losartan as BP will tolerate. (2) Dementia: Code(s): F03.90 - Unspecified dementia without behavioral disturbance Status: Acute (3) CHF (congestive heart failure): Qualifiers: Heart failure chronicity: acute Heart failure type: unspecified Qualified Code(s): I50.9 - Heart failure, unspecified Code(s): I50.9 - Heart failure, unspecified Status: Acute Assessment and Plan: As detailed below, echocardiogram, low-salt diet, systolic in etiology. (4) Hypertension: Qualifiers: Hypertension type: primary hypertension Qualified Code(s): I10 - Essential (primary) hypertension Code(s): I10 - Essential (primary) hypertension Status: Acute (5) Coronary artery disease: Code(s): I25.10 - Atherosclerotic heart disease of [place] coronary artery without angina pectoris Status: Acute Assessment and Plan: He does have known coronary disease and elevated troponins. Possibly recent non-STEMI versus heart failure versus both. 2D echocardiogram Doppler reorder an viewed. Intake and output and daily weights. Will clarify medications. Will start isosorbide mononitrate 30 mg p.o. daily. Continue aspirin. This needs to be clarified before resuming. I did try to talk to his without answer. (6) Cardiomyopathy: Code(s): I42.9 - Cardiomyopathy, unspecified Status: Acute Assessment and Plan: Mywb-ip-zmqfvkmf cardiomyopathy. (7) Ventricular tachycardia: Code(s): I47.2 - Ventricular tachycardia Status: Acute Assessment and Plan: Episode yesterday appears to be polymorphic VT. QTC though is not significantly prolonged. He did undergo a PCI to the diagonal branch but uncertain if this is going to improve his arrhythmia. Rhythm has been stable on amiodarone despite polymorphic VT and he went back into VT when amiodarone was stopped. Will likely need electrophysiology eval before discharge plus-minus ICD which means transfer to another facility Subjective Date/time seen: 07/15/21 08:19 Interval history: Follow-up visit in this 81-year-old man with: Multivessel coronary artery disease with ischemic cardiomyopathy treated with percutaneous revascularization at another hospital in 2020. Patient underwent stenting of the obtuse marginal circumflex as well as the RCA. Mid LAD is a disease was felt to be treated medically. Patient has mild LV systolic dysfunction and admitted to the hospital with some shortness of breath. Cardiac catheterization 07/14/2021 . Coronary artery disease with previously treated OM and right coronary disease that remains successfully revascularize following PCI last year. 2. Progressive high-grade stenosis of 95% in the major diagonal branch as described above 3. moderate mid to distal LAD disease angiographically certainly not any different or possibly even less significant than study from last year. 4. Successful PCI of the target lesion in the diagonal using 2.25 x 15 mm drug-eluting stent described above with a good angiographic result. Date of service 07/15/2021: He did have a another brief episode of torsade requiring cardioversion yesterday evening but rhythm has been quiescent since. Still ventilated. Status post PCI as detailed above. No bleeding problems. Withdraws to pain Review of Systems Review of Systems: All systems reviewed & are unremarkable except as noted in HPI and below Constitutional: Constitutional: Denies fatigue, Denies headache(s) and Denies weakness Eyes: Eyes: Denies blurry vision ENT: Denies headache(s) and Denies neck pain Cardiovascular:
--- NOTE | 2021-07-15 08:55 | WPDINTPN ---
Progress Note: A&P Assessment and Plan (1) Acute respiratory failure: Code(s): J96.00 - Acute respiratory failure, unspecified whether with hypoxia or hypercapnia Status: Acute Assessment and Plan: Acute Respiratory failure secondary to cardiac arrest Continue full mechanical ventilation support to prevent hypoxemia/hypercarbia and end organ damage. ABG and PCXR reviewed Vent settings reviewed Low tidal volume ventilation strategy to prevent volutrauma Patient on Versed and fentanyl for sedation He was started on empiric antibiotics in the form of Rocephin and doxycycline for suspected pneumonia He is afebrile and WBCs normal. Procalcitonin was 0.5 suggestive of low risk of infection CT chest is ordered and pending Vent weaning will depend hemodynamics stability (2) Cardiac arrest: Code(s): I46.9 - Cardiac arrest, cause unspecified Status: Acute Assessment and Plan: Patient has a baseline history of CAD status post multivessel PCI in July of last year. Now presented with shortness of breath and was diagnosed with congestive heart failure 07/13 he had episode where he was in V-tach and was defibrillated and received CPR. He was down for approximately 5 minute 07/14 on sedation holiday he is following commands. In ICU patient had another episodes of torsades requiring magnesium and DC shock. Cardiac catheterization 07/14/2021 1. Coronary artery disease with previously treated OM and right coronary disease that remains successfully revascularize following PCI last year. 2. Progressive high-grade stenosis of 95% in the major diagonal branch as described above 3. moderate mid to distal LAD disease angiographically certainly not any different or possibly even less significant than study from last year. 4. Successful PCI of the target lesion in the diagonal using 2.25 x 15 mm drug-eluting stent described above with a good angiographic result. Echo 07/13 1. Left ventricular chamber dimension is mildly enlarged. 2. Left ventricular systolic function is moderately reduced, estimated at 40-45%. 3. There is mildly increased left ventricular wall thickness. 4. The left ventricular diastolic function is grade I diastolic dysfunction. 5. The apex, inferior wall, anterior wall, mid anterolateral wall, and mid anteroseptal are hypokinetic. 6. Left atrial chamber dimension is mildly enlarged. 7. There is mild mitral valve regurgitation. 8. There is mild tricuspid valve regurgitation. 9. The mitral valve has thickened leaflets and calcified leaflets. Continue aspirin, Plavix, statin Amiodarone infusion was started as after cardioversion patient was in AFib. It will be continued for now Low-dose Coreg has been resumed Cozaar held due to soft blood pressure on sedation now Hemodynamically stable and not requiring any vasopressor this time Continue therapeutic dose Lovenox Discussed with Dr. Trevino. Try to transfer patient to [facility] for EP consultation and AICD placement (3) Cardiomyopathy: Code(s): I42.9 - Cardiomyopathy, unspecified Status: Acute Assessment and Plan: See above (4) Coronary artery disease: Code(s): I25.10 - Atherosclerotic heart disease of [place] coronary artery without angina pectoris Status: Acute Assessment and Plan: See above (5) Ventricular tachycardia: Code(s): I47.2 - Ventricular tachycardia Status: Acute Assessment and Plan: See above (6) Atrial fibrillation: Code(s): I48.91 - Unspecified atrial fibrillation Status: Acute Assessment and Plan: Currently in sinus rhythm (7) Type 2 diabetes mellitus with hyperglycemia, with long-term current use of insulin: Onset Date: Unknown Code(s): E11.65 - Type 2 diabetes mellitus with hyperglycemia; Z79.4 - long term care social worker (current) use of insulin Status: Chronic Assessment and Plan: Continue Lantus and sliding scale (8) Acute kidney
[2021-07-15] MEDS: CALCIUM GLUC 2,000 MG/NS 100ML 2,000 MG/100 ML BAG 100 MG IVPB (09:10)
[2021-07-15] MEDS: ASPIRIN 81 MG CHEWABLE TABLET PO (09:10)
[2021-07-15] MEDS: ENOXAPARIN 120 MG/0.8 ML SYRINGE SUB-Q (09:11)
[2021-07-15] MEDS: MINERAL OIL/WHITE PETROLATUM OINTMENT 1 APPLIC EACH EYE (09:11)
[2021-07-15] MEDS: CLOPIDOGREL BISULFATE 75 MG TABLET PO (09:11)
[2021-07-15] MEDS: PANTOPRAZOLE SODIUM IV 40 MG VIAL IV PUSH (09:11)
[2021-07-15] MEDS: ISOSORBIDE MONONITRATE 30 MG TAB.ER.24H PO (09:11)
[2021-07-15] MEDS: INSULIN GLARGINE (*BKC) 100 UNITS/ML 15 UNITS SUB-Q (09:18)
[2021-07-15 09:33] LABS: Glucose Point of Care 222 mg/dl (65-105)
--- NOTE | 2021-07-15 09:49 | PM.EVENT ---
Event Note Event Note Event Note: Spoke to Dr. Cortez with Cardiology at [facility] discussed case with him. They will accept patient for transfer. Transfer center will call once they have a bed available. I have spoken to patient's and updated her with plan to transfer and she is agreeable.
--- NOTE | 2021-07-15 09:56 | PC.NURSE ---
Spoke with Daisy at [facility] transfer center. Gave vital signs, ventilator settings, and what drips were currently hanging. Awaiting bed placement call.
--- NOTE | 2021-07-15 10:07 | PC.NURSE ---
Spoke to Blanca at [facility] transfer center. Bed available room [id number], accepting Dr. Del Rosario. Report to be called at [phone].
--- NOTE | 2021-07-15 10:10 | PM.TDS ---
Transfer Discharge Sum: Prov Provider Date of admission: 07/12/21 05:22 Primary care physician: Rodney Vila, Admitting clinician: Blanche Samano MD Consults: 07/12/21 11:56 Consult to Physician Routine Comment: Called office notified them of consult Consulting Provider: Chico Trevino call center director/MD group to consult: Weight And Balance Control Agent Reason for consultation: new onset CHF, elevated trops Has provider been notified: Yes 07/14/21 15:40 Cardiopulmonary Rehabilitation Consult Routine Comment: Consult Plan: Evaluate for Eligibility DS: Admitting Diagnosis Discharge Date 07/15/2021 Admitting Diagnosis shortness of breath DS: Discharge Diagnosis Discharge Diagnosis (1) CHF (congestive heart failure): Qualifiers: Heart failure chronicity: acute Heart failure type: unspecified Qualified Code(s): I50.9 - Heart failure, unspecified Code(s): I50.9 - Heart failure, unspecified Status: Acute Assessment and Plan: ED-HPI Narrative: 81-year-old male presents emergency room by EMS secondary to shortness of breath. He states he been feeling short of breath for the last day or so but got progressively worse tonight with his finally convinced him that he need to come to the hospital to get assistance. On EMS arrival the patient was noted to be dyspneic. They gave him a nebulizer treatment and he did state he felt somewhat better afterwards. Patient denies any chest pain. Denies any cough or congestion. No chills or fevers. He denies any prior history of congestive heart failure. He does have a history of hypertension and states lately been having some palpitations from time to time. At this time he is also get swelling to his lower extremities which she states is never had before. Patient is having dyspnea over the last day or so with just walking around his own house. Also noted that when he tries to lay down to sleep he feels short of breath and we were so tonight. 07/12/2021 interval history: patient is 81-year-old male presented with a complaint of shortness of breath swelling of lower extremities, his BNP is elevated on 1060 patient was started on IV Lasix, will do the cardiac echo to further evaluate, will be seen manager embalmer funeral director and further recommendation to follow, the PT OT evaluate the patient. patient is admitted as observation status. (2) Hypertension: Qualifiers: Hypertension type: primary hypertension Qualified Code(s): I10 - Essential (primary) hypertension Code(s): I10 - Essential (primary) hypertension Status: Acute Assessment and Plan: continue home regimen and monitor (3) Type 2 diabetes mellitus with hyperglycemia, with long-term current use of insulin: Onset Date: Unknown Code(s): E11.65 - Type 2 diabetes mellitus with hyperglycemia; Z79.4 - adjunct faculty for medical terminology (current) use of insulin Status: Chronic Assessment and Plan: will continue home regimen and monitor with sliding scale and adjust insulin as needed Transfer Discharge Sum: Med Medications Active and Home Medications: Home Medications amlodipine 5 mg PO DAILY 07/12/21 [History Confirmed 07/12/21] aspirin [Adult Aspirin] 81 mg PO DAILY 07/12/21 [History Confirmed 07/12/21] carvedilol 12.5 mg PO DAILY 07/12/21 [History Confirmed 07/12/21] insulin degludec [Tresiba FlexTouch U-200] 44 unit SUBCUT HS 07/12/21 [History Confirmed 07/12/21] insulin lispro See Rx Instructions .ROUTE .COMPLEX 07/12/21 [History Confirmed 07/12/21] rosuvastatin 20 mg PO HS 07/12/21 [History Confirmed 07/12/21] Active Medications Acetaminophen (Acetaminophen Elixir 325 Mg/10.15 Ml Udc) 650 mg PO Q4H PRN PRN Reason: Fever > 100.4 Albuterol (Albuterol Sulfate Neb 2.5 Mg/0.5 Ml Inh) 2.5 mg INHALATION Q6HRT [facility] Last Admin: 07/15/21 08:21 Dose: 2.5 mg Documented by: Aspirin (Aspirin 81 Mg Chewable Tablet) 81 mg PO DAILY@0800 [facility] Last Admin: 07/15/21 09:10 Dose: 8
== END 2021-07-15 11:36 | disposition home health service (06) | DRG 246 ==
LOC: ANHED 05:21 → ANHIMU 08:58 → ANHICU 07-14 13:59 → ANH3MEDSUR 07-18 11:35 → ANHICU 07-18 11:35 → ANHIMU 07-18 11:35
PROVIDERS: Emergency Medicine; Internal Medicine; Internal Medicine Cardiovascular Disease; Specialist; Admitting Provider Internal Medicine; Emergency Provider Emergency Medicine; PCP Internal Medicine; Visit Provider Family Medicine
PROC: 027034Z Dilation of Coronary Artery, One Artery with Drug-eluting Intraluminal Device, Percutaneous Approach (ICD-10-PCS; CPT 93454; principal; 2021-07-14 14:00)
PROC: 027034Z Dilation of Coronary Artery, One Artery with Drug-eluting Intraluminal Device, Percutaneous Approach (ICD-10-PCS; 2021-07-14 14:00)
PROC: 027034Z Dilation of Coronary Artery, One Artery with Drug-eluting Intraluminal Device, Percutaneous Approach (ICD-10-PCS; 2021-07-14 14:00)
DX: I11.0 Hypertensive heart disease with heart failure (principal); I46.2 Cardiac arrest due to underlying cardiac condition; J96.00 Acute respiratory failure, unspecified whether with hypoxia or hypercapnia; I50.21 Acute systolic (congestive) heart failure; I47.2 Ventricular tachycardia; I25.10 Atherosclerotic heart disease of native coronary artery without angina pectoris; F03.90 Unspecified dementia, unspecified severity, without behavioral disturbance, psychotic disturbance, mood disturbance, and anxiety; Z20.822 Contact with and (suspected) exposure to COVID-19; E11.42 Type 2 diabetes mellitus with diabetic polyneuropathy; Z85.828 Personal history of other malignant neoplasm of skin; E78.5 Hyperlipidemia, unspecified; E11.319 Type 2 diabetes mellitus with unspecified diabetic retinopathy without macular edema; Z79.899 Other long term (current) drug therapy; Z79.4 Long term (current) use of insulin; Z79.82 Long term (current) use of aspirin; E11.65 Type 2 diabetes mellitus with hyperglycemia; I42.9 Cardiomyopathy, unspecified; I48.91 Unspecified atrial fibrillation; I25.5 Ischemic cardiomyopathy
CPT/HCPCS: 31500; 36415; 36569; 36600; 70450; 71045; 71250; 72125; 80048; 80053; 80076; 82375; 82550; 82805; 82948; 83050; 83735; 83880; 84100; 84145; 84484; 85025; 85027; 85610; 85730; 92950; 93005; 93454; 93971; 94002; 94003; 94640; 96374; 96375; 97110; 97161; 97165; 97530; 99291; A9270; C1725; C1751; C1760; C1768; C1874; C1887; C1894; C8929; C9113; C9600; C9803; G0269; J0171; J0282; J0330; J0360; J0583; J0610; J0696; J1644; J1650; J1815; J1940; J2250; J3010; J3475; J3480; J7030; Q9957; U0003; U0005

== ENCOUNTER 2021-11-01 11:46 | Emergency (ER) | payer MEDICARE, SELFPAY ==
[2021-11-01] VITALS (14 sets, daily range): BP systolic 94–149; BP diastolic 61–86; PULSE 85–101; RESP 16–33; TEMP 37.2–37.6; O2SAT 94–99
--- NOTE | ~2021-11-01 | XR_ITS ---
EXAMINATION: XR chest 1V portable DATE: 11/01/2021 13:11 INDICATION: Fever, altered mental status and generalized discomfort TECHNIQUE: frontal view of the chest was obtained. COMPARISON: Chest radiograph dated 07/15/2021 FINDINGS: Small lung volumes. Mild opacities at the left lung base. No pulmonary edema, pleural effusion or pne umothorax. The cardiomediastinal silhouette is normal. Severe right glenohumeral osteoarthritis. IMPRESSION: 1. Mild left basilar opacities which could represent atelectasis or pneumonia. Reviewed, dictated and finalized at location A.
--- NOTE | ~2021-11-01 | CT_ITS ---
EXAMINATION: CT abdomen pelvis wo con DATE: 11/01/2021 13:29 INDICATION: Abdominal pain. TECHNIQUE: Computed tomography (CT) of the abdomen and pelvis was performed without intravenous contr ast. Automated exposure control and iterative reconstruction technique were employed. The dose-length product was 1107.50 mGy-cm. COMPARISON: CT abdomen and pelvis 09/23/2020 FINDINGS: The visualized portions of the lung bases demonstrate mild atelectasis and chronic intersti tial lung disease. There are airspace opacities in left lower lobe, consistent with atelectasis/scarr ing versus pneumonia. Calcified right lung nodules are consistent with old granulomatous disease. No pleural effusion. The heart size is normal. There are coronary artery calcifications. No pericardial effusion. Calcifications in the liver and spleen are consistent with old granulomatous disease. There are gallstones in the gallbladder, which is contracted. The pancreas and adrenal glands are normal. There is a 9 mm stone in right kidney. There is a 6 mm stone in left kidney. The bladder is decompres sed by a Elise catheter. The prostate is severely enlarged. Stool distends the rectum. There is diver ticulosis of the colon without evidence of diverticulitis. The appendix is normal. There are no patho logically enlarged lymph nodes. There is no free intraperitoneal fluid. There is soft tissue gas in t he penis. There are old healed fracture of the right superior and inferior pubic rami. 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 There is severe thoracic and lum bar spondylosis. There is a benign bone island in L1 vertebral body. IMPRESSION: 1. Airspace opacities in left lung lower lobe, consistent with atelectasis/scarring versus pneumonia. 2. Soft tissue gas in the penis suspicious for either Ann gangrene or traumatic Elise placement. I called this finding to Dr. Lyon. Reviewed, dictated and finalized at location A. IMPRESSION: 1. Airspace opacities in left lung lower lobe, consistent with atelectasis/scar ring versus pneumonia. 2. Soft tissue gas in the penis suspicious for either Ann gangrene or trau matic Elise placement. I called this finding to Dr. Lyon.
--- NOTE | ~2021-11-01 | CT_ITS ---
EXAMINATION: CT brain wo con DATE: 11/01/2021 13:29 INDICATION: Altered mental status TECHNIQUE: Computed tomography (CT) of the head was performed without intravenous contrast. Sagittal and coronal reconstructions were performed. The mA was adjusted according to patient size. Iterative reconstruction technique was employed. The dose-length product was 681.00 mGy-cm. COMPARISON: head CT dated 07/13/2021 FINDINGS: Unchanged small old lacunar infarct at the [place] the left internal capsule. No acute intracranial h emorrhage, acute infarction or abnormal extra axial fluid collection. There is mild scattered white m atter hypoattenuation consistent with chronic small vessel ischemic disease. Symmetric prominence of the sulci and ventricles consistent with mild to moderate age-appropriate diffuse cerebral volume los s. No mass/mass effect. The orbits, paranasal sinuses and mastoid air cells are normal. IMPRESSION: 1. No acute intracranial process. 2. 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 3. Age-related changes including mild to moderate diffuse volume loss and mild scattered white matter hypoattenuation consistent with chronic small vessel ischemic disease. Reviewed, dictated and finalized at location A. IMPRESSION: 1. No acute intracranial process. 2. 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 3. Age-related changes including mild to moderate diffuse volume loss and mild scattered white matter hypoattenuation consistent with chronic small vessel isc hemic disease.
--- NOTE | 2021-11-01 11:51 | ECG_ITS ---
Measurements Intervals [place] Rate: 84 P: 42 FL: 217 QRS: 23 QRSD: 89 T: 66 QT: 381 QTc: 452 Interpretive Statements ALTERNATE LEAD PLACEMENT: Posterior V1: V7, V2: V8, V3: V9, V4: V4, V5: V5, V6: V6 SINUS RHYTHM WITH FIRST-DEGREE AV BLOCK BASELINE ARTIFACT NONSPECIFIC T-WAVE ABNORMALITY COMPARED TO ECG 07/14/2021 22:11:07 NO OTHER SIGNIFICANT CHANGES Electronically Signed On 11-01-2021 13:01:23 CDT by Buck Campbell M.D.
[2021-11-01 12:00] LABS: Glucose Point of Care 481 mg/dl (65-105)
--- NOTE | 2021-11-01 12:15 | ED.GENADULT ---
HPI - General Adult General Chief complaint: Fever Stated complaint: wounds, high bs Time Seen by Provider: 11/01/21 11:58 History of Present Illness HPI narrative: This is a 81-year-old male from shelter presenting to ED for altered mental status. To patient's saw him yesterday and he had his normal mentation. He was complaining of foot pain at that time. This morning he is nonverbal. He is unable answer any questions at this time. Related Data Home Medications Medication Instructions Recorded Confirmed amiodarone 200 mg tablet 200 mg PO DAILY 11/01/21 11/01/21 amlodipine 10 mg tablet 10 mg PO DAILY 11/01/21 11/01/21 aspirin 81 mg capsule 81 mg PO DAILY 11/01/21 11/01/21 bisacodyl 10 mg rectal suppository 10 mg RECTAL DAILY PRN Insomnia 11/01/21 11/01/21 dextromethorphan-guaifenesin 30 1 tablet PO Q12H 11/01/21 11/01/21 mg-600 mg tablet extended [id number] hr (Mucinex DM) dronabinol 5 mg capsule 5 mg PO BID 11/01/21 11/01/21 hydrocodone 10 mg-acetaminophen 1 tablet PO Q6H PRN Pain 11/01/21 11/01/21 325 mg tablet insulin glargine 100 unit/mL unit subcut 11/01/21 subcutaneous solution insulin lispro 100 unit/mL 1 sliding scale dose subcut 11/01/21 11/01/21 subcutaneous cartridge (Humalog USEASDIRECTD U-100 Insulin) melatonin 3 mg tablet 3 mg PO HS PRN Pain 11/01/21 11/01/21 olanzapine 5 mg tablet 5 mg PO HS 11/01/21 11/01/21 oxycodone 5 mg tablet 5 mg PO Q4H PRN Pain 11/01/21 11/01/21 prasugrel 10 mg tablet 10 mg PO DAILY 11/01/21 11/01/21 ramelteon 8 mg tablet 8 mg PO HS 11/01/21 11/01/21 sitagliptin 50 mg tablet (Januvia) 50 mg PO DAILY 11/01/21 11/01/21 tamsulosin 0.4 mg capsule 0.4 mg PO HS 11/01/21 11/01/21 trazodone 50 mg tablet 50 mg PO HS 11/01/21 11/01/21 Allergies Allergy/AdvReac Type Severity Reaction Status Date / Time No Known Allergies Allergy Verified 07/12/21 03:54 Review of Systems Review of Systems: Unable to obtain due to medical condition COUNTS INCLUDE 234 BEDS AT THE [facility] Past Medical History Medical History BPH (benign prostatic hyperplasia) C4 cervical fracture Coronary artery disease Dementia Diabetic peripheral neuropathy Diabetic retinopathy Diabetic ulcer of left ankle Dyslipidemia Essential hypertension (Unknown) Hypertriglyceridemia Insulin dependent diabetes mellitus Kidney stones Primary cancer of skin of shoulder Skin cancer of nose Surgical History Surgical History 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 Jackson History of tonsillectomy Family History Family History Mother Diabetes mellitus Father , during World War 2 when the patient was a War inj:expl bomb-cease Social History Social History Social History: He lives in [place] with his of 60 years. Their daughter and son are healthy. He is a lifelong nonsmoker. Denies drug or alcohol use. Have cats at home. Primary care physician: Dr. Rodney Vila Code status: Full code Surrogate decision maker: Smoking status: Never smoker Second hand tobacco smoke exposure: No Alcohol intake: never Substance use: never Gender identity (if verbalized by the patient): Male Spiritual care concerns: No Exam Narrative: APPEARANCE: Laying supine in bed. Head normocephalic a
[2021-11-01 12:33] LABS: Basophils Absolute Auto 0.1 K/mm3 (0.0-0.1); Basophils Percent Auto 0.4 % (0.2-1.2); Eosinophils Percent Auto 0.1 % (0-4.4); Hematocrit 26.8 % (42.0-52.0); Hemoglobin 8.5 g/dL (14.0-18.0); Immature Granulocyte Absolute 0.23 K/mm3 (0.00-0.031); Immature Granulocyte Percent A 1.7 % (0-0.5); Lymphocytes Absolute Auto 0.81 K/mm3 (0.9-3.2); Mean Corpuscular HGB Conc 31.7 g/dl (32-36); Mean Corpuscular Volume 91.5 fl (80-100); Mean Platelet Volume 11.4 fl (7.4-10.4); Monocytes Absolute Auto 0.8 K/mm3 (0.1-0.6); Monocytes Percent Auto 6.2 % (2.6-8.5); Neutrophils Absolute Auto 11.6 K/mm3 (1.3-6.7); Neutrophils Percent Auto 85.6 % (45.5-73.1); Platelet Count Result 326 k/mm3 (150-375); Red Blood Count 2.93 M/mm3 (4.6-6.20); Red Cell Distribution Width 14.1 % (11.5-14.5); White Blood Count 13.5 K/mm3 (4.5-10.0)
[2021-11-01 12:34] LABS: Appearance Urine Cloudy (Clear); Bilirubin Urine Negative (Negative); Blood Urine 2+ (Negative); Color Urine Yellow (Yellow); Glucose Urine UA 3+ mg/dL (Negative); Ketones Urine Negative (Negative); Leukocyte Esterase Ur 1+ LEU/UL (Negative); Nitrate Urine Negative (Negative); Protein Urine 1+ mg/dL (Negative); Urobilinogen Urine 0.2 mg/dL (<2.0); pH Urine 5.5 (5.0-9.0)
[2021-11-01 12:45] LABS: Bacteria Urine Trace /hpf; Budding Yeast Urine Present /hpf; RBC Urine >75 /hpf (0-2); WBC Clumps Urine Present /HPF; WBC Urine >75 /hpf
[2021-11-01 12:46] LABS: Add Urine Microscopic? YES
[2021-11-01 12:47] LABS: Lactic Acid Reflex 1.4 mmol/L (0.7-2.0)
[2021-11-01 12:53] LABS: INR 1.5; Prothrombin Time 17.3 Seconds (11.1-14.7)
[2021-11-01 12:54] LABS: Partial Thromboplastin Time 33.1 SECONDS (22.3-36.8)
[2021-11-01 12:56] LABS: Alanine Aminotransferase 34 U/L (6-50); Albumin Level 3.7 g/dL (3.5-5.1); Alkaline Phosphatase 143 U/L (38-126); Anion Gap 13 mmol/L (8-16); Aspartate Amino Transferase 28 U/L (17-59); Bilirubin,Total 0.4 mg/dL (0.2-1.3); Blood Urea Nitrogen 57 mg/dL (9-20); Calcium 8.7 mg/dL (8.4-10.2); Carbon Dioxide 24 mmol/L (22-30); Chloride 106 mmol/L (98-107); Estimated CRCL calculation 24 ml/min; Estimated Glomerular Filt Rate 25; Glucose 539 mg/dL (65-110); Sodium 143 mmol/L (137-145)
[2021-11-01] MEDS: SODIUM CHLORIDE 0.9% IV 1,000 ML 999 ML IV CONT (13:10)
[2021-11-01 13:27] LABS: CRP 31.7 mg/dL (<1.0)
--- NOTE | 2021-11-01 16:41 | PC.NURSE ---
blood glucose 517 at 1648
[2021-11-01 16:50] LABS: Glucose Point of Care > 500 mg/dl (65-105)
--- NOTE | 2021-11-01 18:15 | WPDURCON ---
Assessment and Plan Assessment and plan (1) Sepsis: Code(s): A41.9 - Sepsis, unspecified organism Status: Acute Plan This is a 81-year-old gentleman with a chronic indwelling Elise catheter who presented to the emergency room with acute mental status changes. The patient with CT scans showing air in the penile subcutaneous tissue however there are no signs of crepitus or gangrene on examination. -despite CT scan showing gas in the subcutaneous tissues that does not appear to be external signs of Ann gangrene. I would recommend monitoring and IV antibiotics. 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 Patient is managed with an indwelling Elise catheter. Apparently there was recent exchange the patient's Elise catheter, as well as change by the ER staff prior to consultation. 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 Jackson History of tonsillectomy Family History Family History Mother Diabetes mellitus Father , during World War 2 when the patient was a infant War inj:expl bomb-cease Social History Social History Social History: He lives in [place] with his of 60 years. Their daughter and son are healthy. He is a lifelong nonsmoker. Denies drug or alcohol use. Have cats at home. Primary care physician: Dr. Rodney Vila Code status: Full code Surrogate decision maker: Smoking status: Never smoker Second hand tobacco smoke exposure: No Alcohol intake: never Substance use: never Gender identity (if verbalized by the patient): Male Spiritual care concerns: No Meds Home Medications and Allergies Home Medications Medication Instructions Recorded Confirmed Type amiodarone 200 mg tablet 200 mg PO DAILY 11/01/21 11/01/21 History amlodipine 10 mg tablet 10 mg PO DAILY 11/01/21 11/01/21 History aspirin 81 mg capsule 81 mg PO DAILY 11/01/21 11/01/21 History bisacodyl 10 mg rectal suppository 10 mg RECTAL DAILY PRN Insomnia 11/01/21 11/01/21 History dextromethorphan-guaifenesin 30 1 tablet PO Q12H 11/01/21 11/01/21 History mg-600 mg tablet extended [id number] hr (Mucinex DM) dronabinol 5 mg capsule 5 mg PO BID 11/01/21 11/01/21 History hydrocodone 10 mg-acetaminophen 1 tablet PO Q6H PRN Pain 11/01/21 11/01/21 History 325 mg tablet insulin glargine 100 unit/mL unit subcut 11/01/21 History subcutaneous solution
--- NOTE | 2021-11-04 19:07 | PC.NURSE ---
Positive blood and urine cultures reported to [facility] in house cra.
== END 2021-11-01 18:56 | disposition short-term general hospital (02) ==
PROVIDERS: Emergency Medicine; Emergency Provider Emergency Medicine; PCP Internal Medicine
DX: A41.9 Sepsis, unspecified organism (principal); E11.65 Type 2 diabetes mellitus with hyperglycemia; Z79.4 Long term (current) use of insulin; F03.90 Unspecified dementia, unspecified severity, without behavioral disturbance, psychotic disturbance, mood disturbance, and anxiety; L89.152 Pressure ulcer of sacral region, stage 2; L89.620 Pressure ulcer of left heel, unstageable; L89.610 Pressure ulcer of right heel, unstageable; N40.0 Benign prostatic hyperplasia without lower urinary tract symptoms; I25.10 Atherosclerotic heart disease of native coronary artery without angina pectoris; I10 Essential (primary) hypertension; E78.5 Hyperlipidemia, unspecified; Z87.442 Personal history of urinary calculi
CPT/HCPCS: 36415; 70450; 71045; 74176; 80053; 81001; 82948; 83605; 85025; 85610; 85730; 86140; 87040; 87086; 87106; 87147; 87181; 87186; 93005; 96361; 96365; 96366; 96368; 99285; J0692; J3370; J7030